=== PATIENT | male | born 1935 | race Caucasian/White ===

== ENCOUNTER 2018-02-21 12:44 | Inpatient (IN) | payer MEDICARE, OTHER, SELFPAY ==
[2018-02-21 12:45] VITALS: BP 140/99; PULSE 97; RESP 14; TEMP 37.1; O2SAT 99; BMI 23.1
[2018-02-21 13:23] LABS: Absolute Lymphocyte Count 1.03 X10^3/ul (0.83-4.51); Absolute Neutrophil Count 5.3 X10^3/uL (2.0-7.7); Basophil# 0.02 X10^3/uL; Basophil% 0.3 % (0-1); Eosinophil# 0.05 X10^3/uL; Eosinophils% 0.7 % (0-5); Hemoglobin 10.1 g/dl (13.0-16.5); Lymphocyte # 1.03 X10^3/ul (4.0); Lymphocyte % 14.5 % (19-41); Mean Corp Hgb Conc 32.6 g/gl (32-36); Mean Corpuscular Hgb 29.6 pg (27.0-32.0); Mean Corpuscular Volume 90.9 fL (80-94); Monocyte# 0.72 X10^3/uL; Monocyte% 10.2 % (0-10); Neutrophil # 5.25 X10^3/uL (2.7-7.7); POSITIVE COUNT NO; POSITIVE DIFFERENTIAL NO; POSITIVE MORPHOLOGY NO; Platelet Count 231 K/mm3 (150-450); RBC Distribution Width CV 13.5 % (11.6-14.6); RBC Distribution Width SD 43.8 fl (35.1-43.9); Red Blood Count 3.41 M/mm3 (4.6-6.2); White Blood Count 7.1 K/mm3 (4.4-11.0)
[2018-02-21] MEDS: 0.9% Normal Saline 1,000 ML 150 ML IV (13:27)
[2018-02-21 13:33] LABS: Anion Gap 12 (5-15); BUN 66 mg/dL (7-18); BUN/Creat Ratio 10.4 RATIO (10-20); Calcium,Total 8.9 mg/dL (8.5-10.1); Chloride 106 mmol/L (98-107); Creatinine, Serum 6.33 mg/dL (0.70-1.30); EST Glomerular Filtration Rate 9 mL/min (>60); Est Glom Filt Rate - Afr Amer 11 mL/min (>60); Estimated Creatinine Clearance 9.45 ml/min; Glucose 104 mg/dL (74-106); Potassium 4.2 mmol/L (3.5-5.1); Sodium Level 137 mmol/L (136-145)
[2018-02-21 13:36] LABS: Mucous, Urine 0 SEEN /hpf (<or=2+)
[2018-02-21 13:43] LABS: Color, Urine Yellow (Yellow); Glucose, Dipstick Normal (Normal); Ketone-Dipstick Negative (Negative); Leukocyte Esterase-Dipstick 500 /ul (Negative); Nitrite-Dipstick Negative (Negative); Occult Blood-Urine 25 /ul (Negative); Protein-Dipstick 30 mg/dl (Negative); Specific Gravity, Urine 1.005 (1.002-1.030); Urine Bilirubin Dipstick Negative (Negative); Urine Clarity Sl. Cloudy (Clear); Urine Urobilinogen Normal (Normal)
[2018-02-21 13:49] LABS: Bacteria 2+ /hpf (None Seen); Red Blood Cells-Urine 0-5 SEEN /hpf (0-5); Squamous Epithelial Cells - UA 0-5 SEEN /hpf (0-5); White Blood Cells 25-50 SEEN /hpf (0-5)
--- NOTE | 2018-02-21 13:53 | ED.VISSUMM ---
- ER Visit Summary Date of Service: 02/21/18 Chief Complaint: [Abnormal labs History of Present Illness: The patient is a 82 M [presents to the emergency department after being evaluated by meteorology teacher Dr. Santos. Patient initially saw Dr. Mati Cody in the office about a week ago and was noted to have renal failure and anemia therefore was referred to nephrology. Patient states that he has been urinating frequently but only small amounts and has not been completely able to empty his bladder. He denies any fevers. He denies any significant abdominal pain. He denies blood in his stool. He denies black tarry stool.] Physical Examination: [HEENT-PERRLA, EOMI. Cranial nerves II through XII grossly intact. TMs clear. Mucous membranes moist. No adenopathy. Cardiovascular-regular rate and rhythm without murmur or ectopy Lungs-clear to auscultation, chest wall stable without crepitus or subcu emphysema Abdomen-normoactive bowel sounds, soft, nontender, no rebound or rigidity, no peritoneal signs. Extremities-intact ?4, normal range of motion, normal pulses, atraumatic] Test Results: [CBC with differential obtained showed a white count 7.1, hemoglobin 10, hematocrit 31, platelets 231. Chemistries unremarkable. BUN was 66 and creatinine was 6.33. Urinalysis was significant for 500 leukocyte esterase, 25-50 WBCs and +2 bacteria. Urine culture was sent. Bladder scan on presentation showed 900 cc of urine.] Emergency Department Course and Treatment: [Patient had a Santiago catheter placed and patient was started on Rocephin 1 g IV. Patient was started on normal saline.] Treatment Plan: [Admit] Disposition: [Admit] Impression: [Acute renal failure-obstructive uropathy Urinary tract infection] This note was generated with [employer] dictation software. It may contain incorrect words, spelling, and punctuation that were not noted in review of the chart prior to signing ED Disposition - Plan for ED Patient: Chief Complaint: Abn Labs Referrals: Mati Cody MD [Primary Care Provider] -
--- NOTE | 2018-02-21 13:56 | ED.DCSUM_ITS ---
- ER Visit Summary Date of Service: 02/21/18 Chief Complaint: [Abnormal labs History of Present Illness: The patient is a 82 M [presents to the emergency department after being evaluated by senior administrative services officer Dr. Santos. Patient initially saw Dr. Mati Cody in the office about a week ago and was noted to have renal failure and anemia therefore was referred to nephrology. Patient states that he has been urinating frequently but only small amounts and has not been completely able to empty his bladder. He denies any fevers. He denies any significant abdominal pain. He denies blood in his stool. He denies black tarry stool.] Physical Examination: [HEENT-PERRLA, EOMI. Cranial nerves II through XII grossly intact. TMs clear. Mucous membranes moist. No adenopathy. Cardiovascular-regular rate and rhythm without murmur or ectopy Lungs-clear to auscultation, chest wall stable without crepitus or subcu emphysema Abdomen-normoactive bowel sounds, soft, nontender, no rebound or rigidity, no peritoneal signs. Extremities-intact ?4, normal range of motion, normal pulses, atraumatic] Test Results: [CBC with differential obtained showed a white count 7.1, hemoglobin 10, hematocrit 31, platelets 231. Chemistries unremarkable. BUN was 66 and creatinine was 6.33. Urinalysis was significant for 500 leukocyte esterase, 25-50 WBCs and +2 bacteria. Urine culture was sent. Bladder scan on presentation showed 900 cc of urine.] Emergency Department Course and Treatment: [Patient had a Santiago catheter placed and patient was started on Rocephin 1 g IV. Patient was started on normal saline.] Treatment Plan: [Admit] Disposition: [Admit] Impression: [Acute renal failure-obstructive uropathy Urinary tract infection] This note was generated with [employer] dictation software. It may contain incorrect words, spelling, and punctuation that were not noted in review of the chart prior to signing ED Disposition - Plan for ED Patient: Chief Complaint: Abn Labs Referrals: Mati Cody MD [Primary Care Provider] -
--- NOTE | 2018-02-21 14:07 | PCM.HP.STD ---
Problem List (1) HEIDI (acute kidney injury) Status: Acute (2) UTI (urinary tract infection) Status: Acute History of Present Illness Date of Admission: 02/21/18 Chief Complaint: HEIDI The patient is a 82 year old M who got a flu shot was not feeling well. And was noted that he had not seen a physician in about 6 years and this showed acute kidney injury. Patient was sent to administrative services assistant who saw the patient's creatinine was over 6 and sent the patient to the ER. Patient has been noticing that he has been dribbling urine for several months and is constantly incontinent. Patient was bladder scanned for 900 cc of urine. Santiago catheter was placed in the emergency room. 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 Review of Systems Constitutional: Denies: Chills, Fever, Weight Change Eyes: Reports: - - glasses. Denies: Blurred vision, Double vision HEENT: Denies: Head Aches, Sinus Congestion, Sinus Drainage Cardiovascular: Denies: Chest Pain, Palpitations Respiratory: Denies: Cough, Shortness of breath at rest, Sputum production Gastrointestinal: Denies: Abdominal Pain, Nausea, Vomiting Genitourinary: Reports: Frequency, Hesitancy, Incontinence, Retention. Denies: Dysuria, Nocturia Musculoskeletal: Denies: Joint Pain, Joint Tenderness Skin: Denies: Rash, Wounds Neurological: Denies: Numbness, Tingling, Focal weakness Psychiatric: Denies: Anxiety, Depression Endocrine: Denies: Change in Body Habitus, Heat/ Cold Intolerance Hematologic/ Lymphatic: Reports: Hx of blood clot. Denies: Easy Bruising, Easy Bleeding Comment: All review of systems are negative except as mentioned in the history of present illness and the other review of systems. VTE Information - Inpt Only VTE Present on Admission: No VTE Mechan Device Prophylaxis: None VTE Pharm Prophylaxis ordered?: Yes Patient Problems: Active and Suspected Problems (Last Updated 02/21/18 @ 14:09 by Gustavo Sauer DO) HEIDI (acute kidney injury) (Acute) UTI (urinary tract infection) (Acute) - Physical Exam General: Alert, Cooperative, No apparent distress, Well developed, Well nourished, - - Appears younger than stated age HEENT: Atraumatic, Normocephalic Oral: Moist Mucosa, No Gingival or Mucosal Lesions/ Ulcerations Neck: No Nodes, Thyroid Normal Size and Texture Lungs: Clear to auscultation, Normal air movement, No rhonchi, No wheeze Cardiovascular: Regular rate, Regular Rhythm, Normal S1, Normal S2, No murmurs Abdomen: Bowel Sounds Present, Soft, Non Tender, Non-Distended, No Hepato-splenomegaly Extremities: No edema, No Calf Tenderness Skin: No breakdown Musculoskeletal: No Tenderness to Palpation of Joints or Extremities, No Muscle Wasting Neurological: Deep Tendon Reflexes 2+/4 and Symmetrical, Coordination normal, - - No clonus Psych/Mental Status: Normal Affect, Appropriate Vital Signs Temp Pulse Resp BP Pulse Ox 37.1 C 97 14 140/99 H 99 02/21/18 12:45 02/21/18 12:45 02/21/18 12:45 02/21/18 12:45 02/21/18 12:45 Oxygen Delivery Method Room Air Weight: 73 kg Body Mass Index (BMI) 23.1 Laboratory Tests Past 24 Hrs 02/21/18 02/21/18 02/21/18 13:05 13:05 13:25 WBC 7.1 RBC 3.41 L Hgb 10.1 L Hct 31.0 L MCV 90.9 MCH 29.6 MCHC 32.6 RDW 13.5 RDW Differential 43.8 Plt Count 231 MPV 9.0 Immature Gran % (Auto) 0.300 Neut % (Auto) 74.0 H Lymph % (Auto) 14.5 L White % (Auto) 10.2 H Eos % (Auto) 0.7 Baso % (Auto) 0.3 Absolute Neuts (auto) 5.3 Absolute Lymphs (auto) 1.03 Total Counted Not Reportable Sodium 137 Potassium 4.2 Chloride 106 Carbon Dioxide 19.0 L Anion Gap 12 BUN 66 H Creatinine 6.33 H Estim Creat Clear Calc 9.45 Est GFR (MDRD) Af Amer 11 L Est GFR (MDRD) Non-Af 9 L BUN/Creatinine Ratio 10.4 Glucose 104 Calcium 8.9 Urine Color Yellow Urine Clarity Sl. Cloudy Urine pH 6.0 Ur Specific [place] 1.005 Urine Protein 30 H Urine Glucose (UA) Normal Urine Ketones Negative Urine Occult Blood 25 H Urine Nitrite Negative Urine Bilirubin Negative Urine Urobilinogen Normal Ur Leukocyte Esterase 500 H Urine RBC 0-5 SEEN Urine WBC 25-50 SEEN Ur Squamous Epith Cells 0-5 SEEN Urine Bacteria 2+ Urine Mucus 0 SEEN Assessment/Plan All Active Problems (Last Updated 02/21/18 @ 14:09 by Gustavo Sauer DO) HEIDI (acute kidney injury) (Acute) UTI (urinary tract infection) (Acute) 1. 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 This will need to potentially be removed prior to discharge to see if he can urinate without it. However, if the catheter does need to be replaced patient will need to follow-up with urology as outpatient IV fluids Start Flomax Reevaluate in the a.m. Check renal ultrasound Consult nephrology I do not anticipate patient requiring any renal replacement therapy at this time 2. UTI Based on urinalysis findings Continue with ceftriaxone that was started in the emergency room Follow-up urine culture 3. Anemia Normocytic Monitor for now 4. DVT prophylaxis with subcu heparin 5. Disposition: Patient will be brought in under as observation status as I do anticipate the patient doing well overnight and having no setbacks. Much this workup likely can be continued as outpatient. Case discussed with the patient's at bedside. Code Visit OBSV E&M: 35674 Initial observation care L3
--- NOTE | 2018-02-21 14:11 | HP.PCM_ITS ---
Problem List (1) HEIDI (acute kidney injury) Status: Acute (2) UTI (urinary tract infection) Status: Acute History of Present Illness Date of Admission: 02/21/18 Chief Complaint: HEIDI The patient is a 82 year old M who got a flu shot was not feeling well. And was noted that he had not seen a physician in about 6 years and this showed acute kidney injury. Patient was sent to complex care nurse practitioner who saw the patient's cr eatinine was over 6 and sent the patient to the ER. Patient has been noticing that he has been dribbling urine for several months and is constantly incontinent. Patient was bladder scanned for 900 cc of urine. Santiago catheter was placed in the emergency room. 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 Review of Systems Constitutional: Denies: Chills, Fever, Weight Change Eyes: Reports: - - glasses. Denies: Blurred vision, Double vision HEENT: Denies: Head Aches, Sinus Congestion, Sinus Drainage Cardiovascular: Denies: Chest Pain, Palpitations Respiratory: Denies: Cough, Shortness of breath at rest, Sputum production Gastrointestinal: Denies: Abdominal Pain, Nausea, Vomiting Genitourinary: Reports: Frequency, Hesitancy, Incontinence, Retention. Denies: Dysuria, Nocturia Musculoskeletal: Denies: Joint Pain, Joint Tenderness Skin: Denies: Rash, Wounds Neurological: Denies: Numbness, Tingling, Focal weakness Psychiatric: Denies: Anxiety, Depression Endocrine: Denies: Change in Body Habitus, Heat/ Cold Intolerance Hematologic/ Lymphatic: Reports: Hx of blood clot. Denies: Easy Bruising, Easy Bleeding Comment: All review of systems are negative except as mentioned in the history of present illness and the other review of systems. VTE Information - Inpt Only VTE Present on Admission: No VTE Mechan Device Prophylaxis: None VTE Pharm Prophylaxis ordered?: Yes Patient Problems: Active and Suspected Problems (Last Updated 02/21/18 @ 14:09 by Gustavo Sauer DO) HEIDI (acute kidney injury) (Acute) UTI (urinary tract infection) (Acute) - Physical Exam General: Alert, Cooperative, No apparent distress, Well developed, Well nourished, - - Appears younger than stated age HEENT: Atraumatic, Normocephalic Oral: Moist Mucosa, No Gingival or Mucosal Lesions/ Ulcerations Neck: No Nodes, Thyroid Normal Size and Texture Lungs: Clear to auscultation, Normal air movement, No rhonchi, No wheeze Cardiovascular: Regular rate, Regular Rhythm, Normal S1, Normal S2, No murmurs Abdomen: Bowel Sounds Present, Soft, Non Tender, Non-Distended, No Hepato- splenomegaly Extremities: No edema, No Calf Tenderness Skin: No breakdown Musculoskeletal: No Tenderness to Palpation of Joints or Extremities, No Muscle Wasting Neurological: Deep Tendon Reflexes 2+/4 and Symmetrical, Coordination normal, - - No clonus Psych/Mental Status: Normal Affect, Appropriate Vital Signs Temp Pulse Resp BP Pulse Ox 37.1 C 97 14 140/99 H 99 02/21/18 12:45 02/21/18 12:45 02/21/18 12:45 02/21/18 12:45 02/21/18 12:45 Oxygen Delivery Method Room Air Weight: 73 kg Body Mass Index (BMI) 23.1 Laboratory Tests Past 24 Hrs 02/21/18 02/21/18 02/21/18 13:05 13:05 13:25 WBC 7.1 RBC 3.41 L Hgb 10.1 L Hct 31.0 L MCV 90.9 MCH 29.6 MCHC 32.6 RDW 13.5 RDW Differential 43.8 Plt Count 231 MPV 9.0 Immature Gran % (Auto) 0.300 Neut % (Auto) 74.0 H Lymph % (Auto) 14.5 L [place] % (Auto) 10.2 H Eos % (Auto) 0.7 Baso % (Auto) 0.3 Absolute Neuts (auto) 5.3 Absolute Lymphs (auto) 1.03 Total Counted Not Reportable Sodium 137 Potassium 4.2 Chloride 106 Carbon Dioxide 19.0 L Anion Gap 12 BUN 66 H Creatinine 6.33 H Estim Creat Clear Calc 9.45 Est GFR (MDRD) Af Amer 11 L Est GFR (MDRD) Non-Af 9 L BUN/Creatinine Ratio 10.4 Glucose 104 Calcium 8.9 Urine Color Yellow Urine Clarity Sl. Cloudy Urine pH 6.0 Ur Specific [place] 1.005 Urine Protein 30 H Urine Glucose (UA) Normal Urine Ketones Negative Urine Occult Blood 25 H Urine Nitrite Negative Urine Bilirubin Negative Urine Urobilinogen Normal Ur Leukocyte Esterase 500 H Urine RBC 0-5 SEEN Urine WBC 25-50 SEEN Ur Squamous Epith Cells 0-5 SEEN Urine Bacteria 2+ Urine Mucus 0 SEEN Assessment/Plan All Active Problems (Last Updated 02/21/18 @ 14:09 by Gustavo Sauer DO) HEIDI (acute kidney injury) (Acute) UTI (urinary tract infection) (Acute) 1. 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 This will need to potentially be removed prior to discharge to see if he can urinate without it. However, if the catheter does need to be replaced patient will need to follow-up with urology as outpatient * IV fluids * Start Flomax * Reevaluate in the a.m. * Check renal ultrasound * Consult nephrology * I do not anticipate patient requiring any renal replacement therapy at this time 2. UTI * Based on urinalysis findings * Continue with ceftriaxone that was started in the emergency room * Follow-up urine culture 3. Anemia * Normocytic * Monitor for now 4. DVT prophylaxis with subcu heparin 5. Disposition: Patient will be brought in under as observation status as I do anticipate the patient doing well overnight and having no setbacks. Much this workup likely can be continued as outpatient. Case discussed with the patient's at bedside. Code Visit OBSV E&M: 13469 Initial observation care L3
--- NOTE | 2018-02-21 14:14 | CM.ED ---
Social Work Note Face to face with the pt and his to complete initial assessment. Introduced self and role at [facility]. The pt reports to live with his in a one-story home with 2 CONI. Denies access issues and uses a cane at baseline. DME consists of a cane, walker, shower chair, toilet riser, and grab bars. Pt and state they do not use all of this, but have it in the home as they cared for their parents in the past. Pt claims to be independent with ADL's and still drives. Confirms that his PCP is Dr. Cody and denies any specialists. Preferred pharmacy is [facility] for short-term medications and mail order for long-term. Do not have advanced directives and declines additional information. states she got it in May and they do not want it at this time. Made aware that RN KRISTI and SW on assigned unit are available to assist with discharge planning if needs arise. Plan: Home with support of spouse. Pamela Vargas, CATALOG LIBRARIAN, LIVERY CAR DRIVER
--- NOTE | 2018-02-21 14:30 | US_ITS ---
STUDY: RENAL ULTRASOUND - COMPLETE REASON FOR EXAM: Male, 82 years old. Acute kidney injury. TECHNIQUE: Ultrasound evaluation of the kidneys was performed with real-time and static torres-scale imaging. COMPARISON: None. FINDINGS: RIGHT KIDNEY: Normal location of the right kidney, which is normal in size. The right kidney measures 2.4 x 5.8 x 5.5 cm. There is a normal cortex of the right kidney. The renal cortex measures 1.2 cm. There is no right renal mass or cyst. There are no right renal calculi. There is moderately severe hydronephrosis of the right kidney. DISTAL RIGHT URETER: There is moderate - 1.0 cm diameter - hydroureter of the distal right ureter. There is no demonstrated right ureterovesical junction calculus. There is no demonstrated right ureteral jet. LEFT KIDNEY: Normal location of the left kidney, which is normal in size. The left kidney measures 11.1 x 5.6 x 5.1 cm. There is a normal cortex of the left kidney. The renal cortex measures 1.1 cm. There is no left renal mass or cyst. There are no left renal calculi. There is moderately severe hydronephrosis of the left kidney. DISTAL LEFT URETER: There is moderate - 9 mm diameter - hydroureter of the distal left ureter. There is no demonstrated left ureterovesical junction calculus. There is no demonstrated left ureteral jet. BLADDER: Santiago catheter balloon is noted in the urinary bladder. The urinary bladder has a volume of 68.64 ml at the time of scanning. There is a diffusely thickened wall hypervascularity, and trabeculation of the distended bladder. The urinary bladder wall thickness is 1.1 cm. There is no demonstrated mass within the urinary bladder. There are no demonstrated bladder calculi. US/Kidney and Bladder IMPRESSION: 1. Bilateral hydronephrosis down to the ureterovesical junctions. Bilateral ureteral jets were not visualized. 2. The bladder wall is diffusely thickened and trabeculated. A Santiago catheter is incidentally noted. Electronically Signed: Lane Mcintosh MD at 17:29 EDT , Service support ,
[2018-02-21 14:42] VITALS: BMI 24.6
[2018-02-21 14:44] VITALS: BP 159/82; PULSE 86; RESP 16; TEMP 37; O2SAT 98
[2018-02-21 14:45] VITALS: BMI 24.6
[2018-02-21] MEDS: Ceftriaxone 1 GM/50 ML BAG IV (16:45)
[2018-02-21] MEDS: Tamsulosin HCl 0.4 MG Capsule PO (16:49)
--- NOTE | 2018-02-21 17:07 | PCM.CONS.R ---
Problem List (1) HEIDI (acute kidney injury) Status: Acute Consultation - Renal 02/21/18 PCP/ Referring MD: Requesting physician: [] Primary care physician: Mati Cody Reason for Consultation:: HEIDI - History of Present Illness History of Present Illness: The patient is a 82 year old M came to our clinic with creatinine of 6.4. has not seen a doctor for 6 years now. Gave symptoms of obstructive nephropathy hence referred to ER for garcía placement. garcía placed with immediate return of 1 L. still draining blood tinged fluid. denies any complaints - Allergies Allergies: Allergies topic sulfate eye wash Allergy (Uncoded 02/21/18 14:54) Swelling - Current Medications Current Medications: Current Medications Acetaminophen (Tylenol) 650 mg PO Q6H PRN PRN PRN Reason: Mild Pain (1-3)/Temp > 100.7 F Heparin Sodium (Porcine) (Heparin Na) 5,000 unit SC Q12 [facility] Sodium Chloride () 1,000 mls @ 150 mls/hr IV .Q6H40M [facility] Stop: 02/21/18 21:09 Last Admin: 02/21/18 15:33 Dose: Not Given Ceftriaxone Sodium (Rocephin) 1 gm in 50 mls @ 100 mls/hr IV Q24 [facility] Magnesium Hydroxide (Milk Of Magnesia) 30 ml PO DAILY PRN PRN PRN Reason: Constipation Nutritional Formula (Lactose Free) (Ensure Enlive) 120 ml PO 4X/DAY [facility] Ondansetron HCl (Zofran) 4 mg IV Q8H PRN PRN PRN Reason: NAUSEA Sodium Chloride () 5 - 30 ml IV UD PRN PRN Reason: SALINE FLUSH Tamsulosin HCl (Flomax) 0.4 mg PO DAILY@1730 ALEX Last Admin: 02/21/18 16:49 Dose: 0.4 mg - Social History Smoking Status: Never smoker Alcohol: None Drugs: None - Family History Sibling History Items: Heart Disease - 1 brother with a pacemaker and another with another cardiac issue NOS. Review of Systems Constitutional: Denies: Chills, Fever, Weight Change HEENT: Denies: Head Aches, Sinus Congestion, Sinus Drainage Cardiovascular: Denies: Chest Pain, Palpitations Respiratory: Denies: Cough, Shortness of breath at rest, Sputum production Gastrointestinal: Denies: Abdominal Pain, Nausea, Vomiting Genitourinary: Denies: Dysuria Musculoskeletal: Denies: Joint Pain, Joint Tenderness Skin: Denies: Rash, Wounds Neurological: Denies: Numbness, Tingling, Focal weakness Psychiatric: Denies: Anxiety, Depression, Homicidal Ideations, Suicidal Ideations Hematologic/ Lymphatic: Denies: Easy Bruising, Easy Bleeding Patient Problems: Active and Suspected Problems (Last Updated 02/21/18 @ 14:09 by Gustavo Sauer DO) HEIDI (acute kidney injury) (Acute) UTI (urinary tract infection) (Acute) - Physical Exam General: Alert, Oriented x3, Cooperative HEENT: Atraumatic, PERRLA, EOMI, Normocephalic Neck: Supple, No JVD, Negative Carotid Bruits Lungs: Clear to auscultation, Normal air movement Cardiovascular: Regular rate, No murmurs Abdomen: Bowel Sounds Present, Soft, Non Tender Extremities: No edema, Capillary Refill Less than 3 Seconds Skin: No rashes, No breakdown Musculoskeletal: No Tenderness to Palpation of Joints or Extremities Neurological: Cranial nerves II-XII grossly intact Psych/Mental Status: Normal Affect, Appropriate Vital Signs Temp Pulse Resp BP Pulse Ox 98.6 F 86 16 159/82 H 98 02/21/18 14:44 02/21/18 14:44 02/21/18 14:44 02/21/18 14:44 02/21/18 14:44 Oxygen Delivery Method Room Air Weight: 69.2 kg Body Mass Index (BMI) 24.6 Laboratory Tests Past 24 Hrs 02/21/18 02/21/18 02/21/18 13:05 13:05 13:25 WBC 7.1 RBC 3.41 L Hgb 10.1 L Hct 31.0 L MCV 90.9 MCH 29.6 MCHC 32.6 RDW 13.5 RDW Differential 43.8 Plt Count 231 MPV 9.0 Immature Gran % (Auto) 0.300 Neut % (Auto) 74.0 H Lymph % (Auto) 14.5 L [place] % (Auto) 10.2 H Eos % (Auto) 0.7 Baso % (Auto) 0.3 Absolute Neuts (auto) 5.3 Absolute Lymphs (auto) 1.03 Total Counted Not Reportable Eos Smear Total Cells Sodium 137 Potassium 4.2 Chloride 106 Carbon Dioxide 19.0 L Anion Gap 12 BUN 66 H Creatinine 6.33 H Estim Creat Clear Calc 9.45 Est GFR (MDRD) Af Amer 11 L Est GFR (MDRD) Non-Af 9 L BUN/Creatinine Ratio 10.4 Glucose 104 Calcium 8.9 Urine Color Yellow Urine Clarity Sl. Cloudy Urine pH 6.0 Ur Specific [place] 1.005 Urine Protein 30 H Urine Glucose (UA) Normal Urine Ketones Negative Urine Occult Blood 25 H Urine Nitrite Negative Urine Bilirubin Negative Urine Urobilinogen Normal Ur Leukocyte Esterase 500 H Urine RBC 0-5 SEEN Urine WBC 25-50 SEEN Ur Squamous Epith Cells 0-5 SEEN Urine Bacteria 2+ Urine Mucus 0 SEEN Ur Random Sodium Urine Creatinine 02/21/18 02/21/18 02/21/18 13:25 13:25 13:25 WBC RBC Hgb Hct MCV MCH MCHC RDW RDW Differential Plt Count MPV Immature Gran % (Auto) Neut % (Auto) Lymph % (Auto) [place] % (Auto) Eos % (Auto) Baso % (Auto) Absolute Neuts (auto) Absolute Lymphs (auto) Total Counted Eos Smear Total Cells Pending Sodium Potassium Chloride Carbon Dioxide Anion Gap BUN Creatinine Estim Creat Clear Calc Est GFR (MDRD) Af Amer Est GFR (MDRD) Non-Af BUN/Creatinine Ratio Glucose Calcium Urine Color Urine Clarity Urine pH Ur Specific [place] Urine Protein Urine Glucose (UA) Urine Ketones Urine Occult Blood Urine Nitrite Urine Bilirubin Urine Urobilinogen Ur Leukocyte Esterase Urine RBC Urine WBC Ur Squamous Epith Cells Urine Bacteria Urine Mucus Ur Random Sodium Pending Urine Creatinine Pending Assessment/Plan All Active Problems (Last Updated 02/21/18 @ 14:09 by Gustavo Sauer DO) HEIDI (acute kidney injury) (Acute) UTI (urinary tract infection) (Acute) HEIDI. baseline creatinine as of 6 years ago was 1.1. now 6.4 Likely obstructive. garcía placed with immediate return of 1 L. still draining a large amount of blood tinged urine. start half normal saline. renal USG images reviewed. significant hydroureter. Anemia. Hb as outpatient was low. now has hematuria. CBC in AM Obstructive nephropathy. s/p garcía placement. Will need urology evaluation of note he lost about 70 lbs within last couple years, also had poor appetite. prostrate malignancy needs to be ruled out. can be done by urology as outpatient d/w family at bedside
--- NOTE | 2018-02-21 17:11 | CON.PCM_ITS ---
Problem List (1) HEIDI (acute kidney injury) Status: Acute Consultation - Renal 02/21/18 PCP/ Referring MD: Requesting physician: [] Primary care physician: Mati Cody Reason for Consultation:: HEIDI - History of Present Illness History of Present Illness: The patient is a 82 year old M came to our clinic with creatinine of 6.4. has not seen a doctor for 6 years now. Gave symptoms of obstructive nephropathy hence referred to ER for garcía placement. garcía placed with immediate return of 1 L. still draining blood tinged fluid. denies any complaints - Allergies Allergies: Allergies topic sulfate eye wash Allergy (Uncoded 02/21/18 14:54) Swelling - Current Medications Current Medications: Current Medications Acetaminophen (Tylenol) 650 mg PO Q6H PRN PRN PRN Reason: Mild Pain (1-3)/Temp > 100.7 F Heparin Sodium (Porcine) (Heparin Na) 5,000 unit SC Q12 [facility] Sodium Chloride () 1,000 mls @ 150 mls/hr IV .Q6H40M [facility] Stop: 02/21/18 21:09 Last Admin: 02/21/18 15:33 Dose: Not Given Ceftriaxone Sodium (Rocephin) 1 gm in 50 mls @ 100 mls/hr IV Q24 [facility] Magnesium Hydroxide (Milk Of Magnesia) 30 ml PO DAILY PRN PRN PRN Reason: Constipation Nutritional Formula (Lactose Free) (Ensure Enlive) 120 ml PO 4X/DAY [facility] Ondansetron HCl (Zofran) 4 mg IV Q8H PRN PRN PRN Reason: NAUSEA Sodium Chloride () 5 - 30 ml IV UD PRN PRN Reason: SALINE FLUSH Tamsulosin HCl (Flomax) 0.4 mg PO DAILY@1730 ALEX Last Admin: 02/21/18 16:49 Dose: 0.4 mg - Social History Smoking Status: Never smoker Alcohol: None Drugs: None - Family History Sibling History Items: Heart Disease - 1 brother with a pacemaker and another with another cardiac issue NOS. Review of Systems Constitutional: Denies: Chills, Fever, Weight Change HEENT: Denies: Head Aches, Sinus Congestion, Sinus Drainage Cardiovascular: Denies: Chest Pain, Palpitations Respiratory: Denies: Cough, Shortness of breath at rest, Sputum production Gastrointestinal: Denies: Abdominal Pain, Nausea, Vomiting Genitourinary: Denies: Dysuria Musculoskeletal: Denies: Joint Pain, Joint Tenderness Skin: Denies: Rash, Wounds Neurological: Denies: Numbness, Tingling, Focal weakness Psychiatric: Denies: Anxiety, Depression, Homicidal Ideations, Suicidal Ideations Hematologic/ Lymphatic: Denies: Easy Bruising, Easy Bleeding Patient Problems: Active and Suspected Problems (Last Updated 02/21/18 @ 14:09 by Gustavo Sauer DO) HEIDI (acute kidney injury) (Acute) UTI (urinary tract infection) (Acute) - Physical Exam General: Alert, Oriented x3, Cooperative HEENT: Atraumatic, PERRLA, EOMI, Normocephalic Neck: Supple, No JVD, Negative Carotid Bruits Lungs: Clear to auscultation, Normal air movement Cardiovascular: Regular rate, No murmurs Abdomen: Bowel Sounds Present, Soft, Non Tender Extremities: No edema, Capillary Refill Less than 3 Seconds Skin: No rashes, No breakdown Musculoskeletal: No Tenderness to Palpation of Joints or Extremities Neurological: Cranial nerves II-XII grossly intact Psych/Mental Status: Normal Affect, Appropriate Vital Signs Temp Pulse Resp BP Pulse Ox 98.6 F 86 16 159/82 H 98 02/21/18 14:44 02/21/18 14:44 02/21/18 14:44 02/21/18 14:44 02/21/18 14:44 Oxygen Delivery Method Room Air Weight: 69.2 kg Body Mass Index (BMI) 24.6 Laboratory Tests Past 24 Hrs 02/21/18 02/21/18 02/21/18 13:05 13:05 13:25 WBC 7.1 RBC 3.41 L Hgb 10.1 L Hct 31.0 L MCV 90.9 MCH 29.6 MCHC 32.6 RDW 13.5 RDW Differential 43.8 Plt Count 231 MPV 9.0 Immature Gran % (Auto) 0.300 Neut % (Auto) 74.0 H Lymph % (Auto) 14.5 L [place] % (Auto) 10.2 H Eos % (Auto) 0.7 Baso % (Auto) 0.3 Absolute Neuts (auto) 5.3 Absolute Lymphs (auto) 1.03 Total Counted Not Reportable Eos Smear Total Cells Sodium 137 Potassium 4.2 Chloride 106 Carbon Dioxide 19.0 L Anion Gap 12 BUN 66 H Creatinine 6.33 H Estim Creat Clear Calc 9.45 Est GFR (MDRD) Af Amer 11 L Est GFR (MDRD) Non-Af 9 L BUN/Creatinine Ratio 10.4 Glucose 104 Calcium 8.9 Urine Color Yellow Urine Clarity Sl. Cloudy Urine pH 6.0 Ur Specific [place] 1.005 Urine Protein 30 H Urine Glucose (UA) Normal Urine Ketones Negative Urine Occult Blood 25 H Urine Nitrite Negative Urine Bilirubin Negative Urine Urobilinogen Normal Ur Leukocyte Esterase 500 H Urine RBC 0-5 SEEN Urine WBC 25-50 SEEN Ur Squamous Epith Cells 0-5 SEEN Urine Bacteria 2+ Urine Mucus 0 SEEN Ur Random Sodium Urine Creatinine 02/21/18 02/21/18 02/21/18 13:25 13:25 13:25 WBC RBC Hgb Hct MCV MCH MCHC RDW RDW Differential Plt Count MPV Immature Gran % (Auto) Neut % (Auto) Lymph % (Auto) [place] % (Auto) Eos % (Auto) Baso % (Auto) Absolute Neuts (auto) Absolute Lymphs (auto) Total Counted Eos Smear Total Cells Pending Sodium Potassium Chloride Carbon Dioxide Anion Gap BUN Creatinine Estim Creat Clear Calc Est GFR (MDRD) Af Amer Est GFR (MDRD) Non-Af BUN/Creatinine Ratio Glucose Calcium Urine Color Urine Clarity Urine pH Ur Specific [place] Urine Protein Urine Glucose (UA) Urine Ketones Urine Occult Blood Urine Nitrite Urine Bilirubin Urine Urobilinogen Ur Leukocyte Esterase Urine RBC Urine WBC Ur Squamous Epith Cells Urine Bacteria Urine Mucus Ur Random Sodium Pending Urine Creatinine Pending Assessment/Plan All Active Problems (Last Updated 02/21/18 @ 14:09 by Gustavo Sauer DO) HEIDI (acute kidney injury) (Acute) UTI (urinary tract infection) (Acute) HEIDI. baseline creatinine as of 6 years ago was 1.1. now 6.4 Likely obstructive. garcía placed with immediate return of 1 L. still draining a large amount of blood tinged urine. start half normal saline. renal USG images reviewed. significant hydroureter. Anemia. Hb as outpatient was low. now has hematuria. CBC in AM Obstructive nephropathy. s/p garcía placement. Will need urology evaluation of note he lost about 70 lbs within last couple years, also had poor appetite. prostrate malignancy needs to be ruled out. can be done by urology as outpatient d/w family at bedside
[2018-02-21 17:33] LABS: Urine Sodium 62 mmol/L (Not Establ.)
[2018-02-21 20:53] VITALS: BP 102/56; PULSE 88; RESP 16; TEMP 37.1; O2SAT 96
[2018-02-22 03:25] VITALS: BP 136/118; PULSE 71; RESP 16; TEMP 37; O2SAT 97
[2018-02-22 06:32] LABS: Absolute Lymphocyte Count 0.93 X10^3/ul (0.83-4.51); Absolute Neutrophil Count 7.6 X10^3/uL (2.0-7.7); Basophil# 0.01 X10^3/uL; Basophil% 0.1 % (0-1); Eosinophil# 0.04 X10^3/uL; Eosinophils% 0.4 % (0-5); Hematocrit 30.4 % (40-54); Hemoglobin 9.7 g/dl (13.0-16.5); Lymphocyte # 0.93 X10^3/ul (4.0); Lymphocyte % 9.5 % (19-41); Mean Corp Hgb Conc 31.9 g/gl (32-36); Mean Corpuscular Hgb 28.8 pg (27.0-32.0); Mean Corpuscular Volume 90.2 fL (80-94); Mean Platelet Vol. 9.8 fl (6.2-12.0); Monocyte# 1.13 X10^3/uL; Monocyte% 11.6 % (0-10); Neutrophil # 7.63 X10^3/uL (2.7-7.7); Neutrophil % 78.2 % (47-70); Platelet Count 197 K/mm3 (150-450); RBC Distribution Width CV 13.5 % (11.6-14.6); RBC Distribution Width SD 43.4 fl (35.1-43.9); Red Blood Count 3.37 M/mm3 (4.6-6.2); White Blood Count 9.8 K/mm3 (4.4-11.0)
[2018-02-22 06:34] LABS: POSITIVE COUNT NO; POSITIVE DIFFERENTIAL NO; POSITIVE MORPHOLOGY NO
[2018-02-22 06:45] LABS: Anion Gap 12 (5-15); BUN 67 mg/dL (7-18); BUN/Creat Ratio 11.7 RATIO (10-20); Calcium,Total 8.7 mg/dL (8.5-10.1); Chloride 110 mmol/L (98-107); Creatinine, Serum 5.73 mg/dL (0.70-1.30); EST Glomerular Filtration Rate 10 mL/min (>60); Est Glom Filt Rate - Afr Amer 12 mL/min (>60); Estimated Creatinine Clearance 9.12 ml/min; Glucose 113 mg/dL (74-106); Potassium 4.7 mmol/L (3.5-5.1); Sodium Level 142 mmol/L (136-145)
[2018-02-22 07:36] VITALS: BP 135/76; PULSE 72; RESP 18; TEMP 36.8; O2SAT 98
[2018-02-22] MEDS: Ceftriaxone 1 GM/50 ML BAG IV (09:10)
[2018-02-22] MEDS: 0.9% NaCl Peripheral Flush Adult/Peds IV (09:10)
--- NOTE | 2018-02-22 11:55 | CT_ITS ---
STUDY: CT ABDOMEN AND PELVIS WITHOUT CONTRAST REASON FOR EXAM: Male, 82 years old. Urine retention and hematuria. RADIATION DOSAGE (If Supplied By Facility): CTDIvol = ( 7.07 ) mGy, DLP = ( 374.58 ) mGycm TECHNIQUE: Transaxial images were obtained from the dome of the diaphragm to the symphysis pubis without oral contrast, and without intravenous contrast. Sagittal and coronal images were reconstructed. Individualized dose optimization techniques were used for this CT. COMPARISON: Bilateral renal ultrasound February 21, 2018. FINDINGS: There is mild elevation of the left diaphragm, etiology uncertain. The visualized lung bases are clear. The heart size is normal. Calcification seen in the aortic valve leaflets and, to a lesser degree, in the coronary arteries and distal descending thoracic aorta. Normal liver. The portal vein diameter is 11.5 mm. Normal gallbladder and extrahepatic biliary system. The common bile duct diameter is 8 mm. Normal spleen. Normal pancreas. Normal bilateral adrenal glands. Normal size right kidney. Normal size left kidney. There is moderate bilateral hydroureteronephrosis down to the ureterovesical junctions. No demonstrated nephrolithiasis. Normal visualized stomach. There is a 1 cm periampullary duodenal diverticulum. Normal small intestine. There are multiple colonic diverticula consistent with diverticulosis. The appendix is visualized and appears normal. There is mild atherosclerotic calcification of the distal abdominal aorta and proximal iliac arteries. There is 2.6 x 2.6 cm fusiform ectasia of the mid to distal infrarenal aorta, and 16mm diameter ectasia of the common iliac arteries. Normal inferior vena cava. Normal retroperitoneum. The urinary bladder wall is diffusely thickened and possibly 17 mm. A [place] catheter is seen within the bladder. There is also gas in the bladder lumen that has a mildly striated appearance, consistent with trabeculation of the inner bladder wall. There are prostatic calcifications. There is a 1.15 x 1.25 cm midline defect of the high anterior abdominal wall, allowing for a 4.6 x 1.3 x 4.0 cm herniation of fat. There are multilevel degenerative changes of the visualized spine, including minor anterolisthesis of L4 on L5. Irregular coronal oriented lucency through the left inferior L4 facet may reflect chronic nonunited fracture versus changes secondary to hypertrophic osteoarthritis. CT/Abdomen/Pelvis without Cont IMPRESSION: 1. Bilateral hydroureteronephrosis down to the ureterovesical junctions again noted. Diffusely thickened and trabeculated urinary bladder wall also again seen. There is no other demonstrated source of distal urinary tract obstruction. A Santiago catheter and small volume gas are seen within the bladder lumen. 2. Atherosclerotic calcifications of the coronary arteries, thoracoabdominal aorta, and proximal iliac arteries. There is 2.6 cm fusiform ectasia of the mid to distal infrarenal aorta and 16 mm diameter ectasia of the common iliac arteries. 3. 1 cm periampullary duodenal diverticulum. Colonic diverticulosis also present without acute diverticulitis. No sign of bowel obstruction. The appendix is normal. 4. Small midline defect of the high anterior abdominal wall abscess for a 4.5 cm sessile herniation of fat. 5. 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 Electronically Signed: Lane Mcintosh MD at 12:52 EDT , Service support ,
--- NOTE | 2018-02-22 11:56 | PCM.CONS.U ---
Problem List (1) Urinary retention due to benign prostatic hyperplasia Status: Acute Reason for Consult Date of Consultation: 02/22/18 Reason for Consultation: Retention of urine BPH and renal insufficiency History of Present Illness: The patient is a 82 year old male who presented to the hospital with elevated creatinine, catheter was placed and he had over a liter in his bladder, ultrasound was done he has bilateral hydronephrosis. On exam of the prostate has a very large prostate about 60 g. He reports having difficulty with bladder control incontinence and leakage of urine for the last few months. He has a history of blood clots in the past but currently not taking medications is not been seen a regular physician for 6 years now. 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 Review of Systems Constitutional: Denies: Chills, Fever, Weight Change HEENT: Denies: Head Aches, Sinus Congestion, Sinus Drainage Cardiovascular: Denies: Chest Pain, Palpitations Respiratory: Denies: Cough, Shortness of breath at rest, Sputum production Gastrointestinal: Denies: Abdominal Pain, Nausea, Vomiting Genitourinary: Reports: Retention, Urgency. Denies: Dysuria Musculoskeletal: Denies: Joint Pain, Joint Tenderness Skin: Denies: Rash, Wounds Neurological: Denies: Numbness, Tingling, Focal weakness Psychiatric: Denies: Anxiety, Depression, Homicidal Ideations, Suicidal Ideations Hematologic/ Lymphatic: Denies: Easy Bruising, Easy Bleeding Physical Exam - Physical Exam Vital Signs Temp 98.3 F 02/22/18 07:36 Pulse 72 02/22/18 07:36 Resp 18 02/22/18 07:36 BP 135/76 H 02/22/18 07:36 Pulse Ox 98 02/22/18 07:36 Intake & Output 02/20/18 02/21/1802/22/18 23:59 23:59 23:59 Intake Total 256 / 256 1300 / 1300 Output Total 1100 / 1100 2700 / 2700 Balance -844 / -844 -1400 / -1400 Weight: 69.2 kg Intake: Oral 200 / 200 600 / 600 IV fluid/meds 56 / 56 700 / 700 Output: Urine 1100 / 1100 2700 / 2700 Other: Number of Bowel Movements 1 General: Alert, Oriented x3 HEENT: Atraumatic Oral: Moist Mucosa Neck: Supple Lungs: Normal air movement Cardiovascular: Regular rate Abdomen: Bowel Sounds Present, Soft Prostate: 60gm Testicle: Right Normal, Left Normal Epididymis: Right Normal, Left Normal Scrotum: No lesions, No warts, No rash Extremities: No clubbing, No cyanosis, No edema Musculoskeletal: No Tenderness to Palpation of Joints or Extremities Laboratory Tests Past 24 Hrs 02/21/18 02/21/18 02/21/18 13:05 13:05 13:25 WBC 7.1 RBC 3.41 L Hgb 10.1 L Hct 31.0 L MCV 90.9 MCH 29.6 MCHC 32.6 RDW 13.5 RDW Differential 43.8 Plt Count 231 MPV 9.0 Immature Gran % (Auto) 0.300 Neut % (Auto) 74.0 H Lymph % (Auto) 14.5 L [place] % (Auto) 10.2 H Eos % (Auto) 0.7 Baso % (Auto) 0.3 Absolute Neuts (auto) 5.3 Absolute Lymphs (auto) 1.03 Total Counted Not Reportable Eos Smear Total Cells Sodium 137 Potassium 4.2 Chloride 106 Carbon Dioxide 19.0 L Anion Gap 12 BUN 66 H Creatinine 6.33 H Estim Creat Clear Calc 9.45 Est GFR (MDRD) Af Amer 11 L Est GFR (MDRD) Non-Af 9 L BUN/Creatinine Ratio 10.4 Glucose 104 Calcium 8.9 Urine Color Yellow Urine Clarity Sl. Cloudy Urine pH 6.0 Ur Specific [place] 1.005 Urine Protein 30 H Urine Glucose (UA) Normal Urine Ketones Negative Urine Occult Blood 25 H Urine Nitrite Negative Urine Bilirubin Negative Urine Urobilinogen Normal Ur Leukocyte Esterase 500 H Urine RBC 0-5 SEEN Urine WBC 25-50 SEEN Ur Squamous Epith Cells 0-5 SEEN Urine Bacteria 2+ Urine Mucus 0 SEEN Ur Random Sodium Urine Creatinine 02/21/18 02/21/18 02/21/18 13:25 13:25 13:25 WBC RBC Hgb Hct MCV MCH MCHC RDW RDW Differential Plt Count MPV Immature Gran % (Auto) Neut % (Auto) Lymph % (Auto) [place] % (Auto) Eos % (Auto) Baso % (Auto) Absolute Neuts (auto) Absolute Lymphs (auto) Total Counted Eos Smear Total Cells Pending Sodium Potassium Chloride Carbon Dioxide Anion Gap BUN Creatinine Estim Creat Clear Calc Est GFR (MDRD) Af Amer Est GFR (MDRD) Non-Af BUN/Creatinine Ratio Glucose Calcium Urine Color Urine Clarity Urine pH Ur Specific [place] Urine Protein Urine Glucose (UA) Urine Ketones Urine Occult Blood Urine Nitrite Urine Bilirubin Urine Urobilinogen Ur Leukocyte Esterase Urine RBC Urine WBC Ur Squamous Epith Cells Urine Bacteria Urine Mucus Ur Random Sodium 62 Urine Creatinine 59.50 02/22/18 02/22/18 05:35 05:35 WBC 9.8 RBC 3.37 L Hgb 9.7 L Hct 30.4 L MCV 90.2 MCH 28.8 MCHC 31.9 L RDW 13.5 RDW Differential 43.4 Plt Count 197 MPV 9.8 Immature Gran % (Auto) 0.200 Neut % (Auto) 78.2 H Lymph % (Auto) 9.5 L [place] % (Auto) 11.6 H Eos % (Auto) 0.4 Baso % (Auto) 0.1 Absolute Neuts (auto) 7.6 Absolute Lymphs (auto) 0.93 Total Counted Not Reportable Eos Smear Total Cells Sodium 142 Potassium 4.7 Chloride 110 H Carbon Dioxide 20.0 L Anion Gap 12 BUN 67 H Creatinine 5.73 H Estim Creat Clear Calc 9.12 Est GFR (MDRD) Af Amer 12 L Est GFR (MDRD) Non-Af 10 L BUN/Creatinine Ratio 11.7 Glucose 113 H Calcium 8.7 Urine Color Urine Clarity Urine pH Ur Specific [place] Urine Protein Urine Glucose (UA) Urine Ketones Urine Occult Blood Urine Nitrite Urine Bilirubin Urine Urobilinogen Ur Leukocyte Esterase Urine RBC Urine WBC Ur Squamous Epith Cells Urine Bacteria Urine Mucus Ur Random Sodium Urine Creatinine Assessment/Plan All Active Problems (Last Updated 02/21/18 @ 14:09 by Gustavo Sauer DO) HEIDI (acute kidney injury) (Acute) UTI (urinary tract infection) (Acute) Urinary retention due to benign prostatic hyperplasia (Acute) 82-year-old male with BPH and urinary retention elevated creatinine creatinine is coming down with decompression of the bladder I would do CT scan to further evaluate the prostate and bladder and kidneys. He will need to go home with a catheter and he can see me for follow-up as an outpatient probably will need to proceed straight to surgery for a TURP, first would like to have his kidneys recover completely his creatinine normalized or at least get a baseline and him improve and strengthen medical conditions stabilize. I will need to order the CAT scan, he can go home with a catheter once medically stable, he can call my office to make an appointment for any questions please let me know or call me.
[2018-02-22 13:37] VITALS: BP 102/58; PULSE 73; RESP 20; TEMP 36.9; O2SAT 95
--- NOTE | 2018-02-22 16:46 | PCM.PN.HOSP ---
Patient Problems: Active and Suspected Problems (Last Updated 02/21/18 @ 14:09 by Gustavo Sauer DO) HEIDI (acute kidney injury) (Acute) UTI (urinary tract infection) (Acute) Urinary retention due to benign prostatic hyperplasia (Acute) Subjective: Patient was admitted yesterday with acute kidney injury secondary to bladder outlet obstruction with bilateral hydronephroureter consistent with dilatation of both ureter up to UV junction. Patient has urinary incontinence for more than 1 year. Has not seen physician for about 6 years. Patient has Santiago catheter. Mild hematuria. 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 Vitals/I&O's: Vital Signs Temp Pulse Resp BP Pulse Ox 98.5 F 73 20 H 102/58 L 95 02/22/18 13:37 02/22/18 13:37 02/22/18 13:37 02/22/18 13:37 02/22/18 13:37 Oxygen Delivery Method Room Air Weight: 152 lb 8.958 oz Body Mass Index (BMI) 24.6 Intake and Output for Last 24 Hours 02/20/18 02/21/18 02/22/18 23:59 23:59 23:59 Intake Total 256 / 256 1300 / 1300 Output Total 1100 / 1100 3150 / 3150 Balance -844 / -844 -1850 / -1850 General: Alert, Oriented x3, Cooperative HEENT: Atraumatic, PERRLA, EOMI, Normocephalic Neck: Supple, No JVD, Negative Carotid Bruits Lungs: Clear to auscultation, Normal air movement, No rhonchi, No wheeze, No rales Cardiovascular: Regular rate, Regular Rhythm, Normal S1, Normal S2, No murmurs Abdomen: Bowel Sounds Present, Soft, Non Tender, Non-Distended, No Hepato-splenomegaly, - - No renal angle tenderness. No suprapubic tenderness. Santiago catheter shows mild hematuria. Extremities: No edema, Capillary Refill Less than 3 Seconds, - Skin: No rashes, No breakdown Musculoskeletal: No Tenderness to Palpation of Joints or Extremities, Arthritic Changes Neurological: Cranial nerves II-XII grossly intact Psych/Mental Status: Normal Affect, Appropriate Laboratory Results 02/21/18 13:25: Urine Creatinine 59.50 02/21/18 13:25: Ur Random Sodium 62 02/22/18 05:35: WBC 9.8, RBC 3.37 L, Hgb 9.7 L, Hct 30.4 L, MCV 90.2, MCH 28.8, MCHC 31.9 L, RDW 13.5, RDW Differential 43.4, Plt Count 197, MPV 9.8, Immature Gran % (Auto) 0.200, Neut % (Auto) 78.2 H, Lymph % (Auto) 9.5 L, [place] % (Auto) 11.6 H, Eos % (Auto) 0.4, Baso % (Auto) 0.1, Absolute Neuts (auto) 7.6, Absolute Lymphs (auto) 0.93, Total Counted Not Reportable 02/22/18 05:35: Sodium 142, Potassium 4.7, Chloride 110 H, Carbon Dioxide 20.0 L, Anion Gap 12, BUN 67 H, Creatinine 5.73 H, Estim Creat Clear Calc 9.12, Est GFR (MDRD) Af Amer 12 L, Est GFR (MDRD) Non-Af 10 L, BUN/Creatinine Ratio 11.7, Glucose 113 H, Calcium 8.7 Current Medications Acetaminophen (Tylenol) 650 mg PO Q6H PRN PRN PRN Reason: Mild Pain (1-3)/Temp > 100.7 F Heparin Sodium (Porcine) (Heparin Na) 5,000 unit SC Q12 [facility] Last Admin: 02/22/18 12:44 Dose: Not Given Ceftriaxone Sodium (Rocephin) 1 gm in 50 mls @ 100 mls/hr IV Q24 [facility] Last Admin: 02/22/18 09:10 Dose: 100 mls/hr Magnesium Hydroxide (Milk Of Magnesia) 30 ml PO DAILY PRN PRN PRN Reason: Constipation Nutritional Formula (Lactose Free) (Ensure Enlive) 120 ml PO 4X/DAY [facility] Last Admin: 02/22/18 15:00 Dose: 120 ml Ondansetron HCl (Zofran) 4 mg IV Q8H PRN PRN PRN Reason: NAUSEA Sodium Chloride () 5 - 30 ml IV UD PRN PRN Reason: SALINE FLUSH Last Admin: 02/22/18 09:10 Dose: 10 ml Tamsulosin HCl (Flomax) 0.4 mg PO DAILY@1730 [facility] Last Admin: 02/21/18 16:49 Dose: 0.4 mg Medical Necessity - Tobacco Use Smoking Status: Never smoker Tobacco Use: Non-smoker, Chew Assessment/Plan All Active Problems (Last Updated 02/21/18 @ 14:09 by Gustavo Sauer DO) HEIDI (acute kidney injury) (Acute) UTI (urinary tract infection) (Acute) Urinary retention due to benign prostatic hyperplasia (Acute) This 82-year-old gentleman who has not seen a physician for about 6 years was admitted with acute kidney injury secondary to bladder outlet obstruction with bilateral hydronephrosis and hydroureter admitting creatinine was 6. 3 3, BUN 66, bicarb 19, anion gap 12. UA positive of WBC 25-50 cells, 2+ bacteria, LE positive but nitrite negative. Urinary sodium 62 with urine creatinine 59.5. 1. Acute kidney injury most probably secondary to BPH/bladder outlet obstruction with bilateral hydronephrosis and hydroureter, dilatation of urinary tract up to UV junction: Patient has Santiago catheter and had immediate 1 L of urine drained. Renal bladder ultrasound shows bilateral hydronephrosis down to the UV junction. Bladder wall was diffusely thickened and trabeculated. Similar finding in CT abdomen. No demonstrated source of distal urinary tract. On IV fluid. Flomax. Retirement Plan Specialist and urologist consult reviewed. Discussed with Dr. Knox and he had advised to continue Santiago drainage for his kidney function to return to baseline and probably plan for TURP on Tuesday. 2. UTI: Continue ceftriaxone. UA suggestive of UTI. Urine culture pending. Based on urinalysis findings Continue with ceftriaxone that was started in the emergency room Follow-up urine culture 3. at acute on chronic anemia mostly secondary to mild hematuria on baseline chronic anemia: Monitor hemoglobin. Currently H&H 9.7/30.4. CBC tomorrow a.m. 4. DVT prophylaxis: Bilateral SCDs. Discontinue heparin. Patient requires more than 2 midnight stays for acute kidney injury with severe bladder outlet obstruction. Laboratory Results 02/21/18 13:25: Urine Creatinine 59.50 02/21/18 13:25: Ur Random Sodium 62 02/22/18 05:35: WBC 9.8, RBC 3.37 L, Hgb 9.7 L, Hct 30.4 L, MCV 90.2, MCH 28.8, MCHC 31.9 L, RDW 13.5, RDW Differential 43.4, Plt Count 197, MPV 9.8, Immature Gran % (Auto) 0.200, Neut % (Auto) 78.2 H, Lymph % (Auto) 9.5 L, [place] % (Auto) 11.6 H, Eos % (Auto) 0.4, Baso % (Auto) 0.1, Absolute Neuts (auto) 7.6, Absolute Lymphs (auto) 0.93, Total Counted Not Reportable 02/22/18 05:35: Sodium 142, Potassium 4.7, Chloride 110 H, Carbon Dioxide 20.0 L, Anion Gap 12, BUN 67 H, Creatinine 5.73 H, Estim Creat Clear Calc 9.12, Est GFR (MDRD) Af Amer 12 L, Est GFR (MDRD) Non-Af 10 L, BUN/Creatinine Ratio 11.7, Glucose 113 H, Calcium 8.7 Clinical Impression(s) from Imaging Studies Renal Ultrasound 02/21/18 14:30 IMPRESSION: 1. Bilateral hydronephrosis down to the ureterovesical junctions. Bilateral ureteral jets were not visualized. 2. The bladder wall is diffusely thickened and trabeculated. A Santiago catheter is incidentally noted. Abdomen/Pelvis CT 02/22/18 11:55 IMPRESSION: 1. Bilateral hydroureteronephrosis down to the ureterovesical junctions again noted. Diffusely thickened and trabeculated urinary bladder wall also again seen. There is no other demonstrated source of distal urinary tract obstruction. A Santiago catheter and small volume gas are seen within the bladder lumen. 2. Atherosclerotic calcifications of the coronary arteries, thoracoabdominal aorta, and proximal iliac arteries. There is 2.6 cm fusiform ectasia of the mid to distal infrarenal aorta and 16 mm diameter ectasia of the common iliac arteries. 3. 1 cm periampullary duodenal diverticulum. Colonic diverticulosis also present without acute diverticulitis. No sign of bowel obstruction. The appendix is normal. 4. Small midline defect of the high anterior abdominal wall abscess for a 4.5 cm sessile herniation of fat. 5. 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 Code Visit Inpatient E&M: 62318 Subs Hosp L3
--- NOTE | 2018-02-22 16:57 | PN_ITS ---
Patient Problems: Active and Suspected Problems (Last Updated 02/21/18 @ 14:09 by Gustavo Sauer DO) HEIDI (acute kidney injury) (Acute) UTI (urinary tract infection) (Acute) Urinary retention due to benign prostatic hyperplasia (Acute) Subjective: Patient was admitted yesterday with acute kidney injury secondary to bladder outlet obstruction with bilateral hydronephroureter consistent with dilatation of both ureter up to UV junction. Patient has urinary incontinence for more than 1 year. Has not seen physician for about 6 years. Patient has Santiago catheter. Mild hematuria. Discussed with clinical program consultant and urologist. Vitals/I&O's: Vital Signs Temp Pulse Resp BP Pulse Ox 98.5 F 73 20 H 102/58 L 95 02/22/18 13:37 02/22/18 13:37 02/22/18 13:37 02/22/18 13:37 02/22/18 13:37 Oxygen Delivery Method Room Air Weight: 152 lb 8.958 oz Body Mass Index (BMI) 24.6 Intake and Output for Last 24 Hours 02/20/18 02/21/18 02/22/18 23:59 23:59 23:59 Intake Total 256 / 256 1300 / 1300 Output Total 1100 / 1100 3150 / 3150 Balance -844 / -844 -1850 / -1850 General: Alert, Oriented x3, Cooperative HEENT: Atraumatic, PERRLA, EOMI, Normocephalic Neck: Supple, No JVD, Negative Carotid Bruits Lungs: Clear to auscultation, Normal air movement, No rhonchi, No wheeze, No rales Cardiovascular: Regular rate, Regular Rhythm, Normal S1, Normal S2, No murmurs Abdomen: Bowel Sounds Present, Soft, Non Tender, Non-Distended, No Hepato- splenomegaly, - - No renal angle tenderness. No suprapubic tenderness. Santiago catheter shows mild hematuria. Extremities: No edema, Capillary Refill Less than 3 Seconds, - Skin: No rashes, No breakdown Musculoskeletal: No Tenderness to Palpation of Joints or Extremities, Arthritic Changes Neurological: Cranial nerves II-XII grossly intact Psych/Mental Status: Normal Affect, Appropriate Laboratory Results 02/21/18 13:25: Urine Creatinine 59.50 02/21/18 13:25: Ur Random Sodium 62 02/22/18 05:35: WBC 9.8, RBC 3.37 L, Hgb 9.7 L, Hct 30.4 L, MCV 90.2, MCH 28.8, MCHC 31.9 L, RDW 13.5, RDW Differential 43.4, Plt Count 197, MPV 9.8, Immature Gran % (Auto) 0.200, Neut % (Auto) 78.2 H, Lymph % (Auto) 9.5 L, [place] % (Auto) 11.6 H, Eos % (Auto) 0.4, Baso % (Auto) 0.1, Absolute Neuts (auto) 7.6, Absolute Lymphs (auto) 0.93, Total Counted Not Reportable 02/22/18 05:35: Sodium 142, Potassium 4.7, Chloride 110 H, Carbon Dioxide 20.0 L , Anion Gap 12, BUN 67 H, Creatinine 5.73 H, Estim Creat Clear Calc 9.12, Est GFR (MDRD) Af Amer 12 L, Est GFR (MDRD) Non-Af 10 L, BUN/Creatinine Ratio 11.7, Glucose 113 H, Calcium 8.7 Current Medications Acetaminophen (Tylenol) 650 mg PO Q6H PRN PRN PRN Reason: Mild Pain (1-3)/Temp > 100.7 F Heparin Sodium (Porcine) (Heparin Na) 5,000 unit SC Q12 [facility] Last Admin: 02/22/18 12:44 Dose: Not Given Ceftriaxone Sodium (Rocephin) 1 gm in 50 mls @ 100 mls/hr IV Q24 [facility] Last Admin: 02/22/18 09:10 Dose: 100 mls/hr Magnesium Hydroxide (Milk Of Magnesia) 30 ml PO DAILY PRN PRN PRN Reason: Constipation Nutritional Formula (Lactose Free) (Ensure Enlive) 120 ml PO 4X/DAY [facility] Last Admin: 02/22/18 15:00 Dose: 120 ml Ondansetron HCl (Zofran) 4 mg IV Q8H PRN PRN PRN Reason: NAUSEA Sodium Chloride () 5 - 30 ml IV UD PRN PRN Reason: SALINE FLUSH Last Admin: 02/22/18 09:10 Dose: 10 ml Tamsulosin HCl (Flomax) 0.4 mg PO DAILY@1730 [facility] Last Admin: 02/21/18 16:49 Dose: 0.4 mg Medical Necessity - Tobacco Use Smoking Status: Never smoker Tobacco Use: Non-smoker, Chew Assessment/Plan All Active Problems (Last Updated 02/21/18 @ 14:09 by Gustavo Sauer DO) HEIDI (acute kidney injury) (Acute) UTI (urinary tract infection) (Acute) Urinary retention due to benign prostatic hyperplasia (Acute) This 82-year-old gentleman who has not seen a physician for about 6 years was admitted with acute kidney injury secondary to bladder outlet obstruction with bilateral hydronephrosis and hydroureter admitting creatinine was 6. 3 3, BUN 66, bicarb 19, anion gap 12. UA positive of WBC 25-50 cells, 2+ bacteria, LE positive but nitrite negative. Urinary sodium 62 with urine creatinine 59.5. 1. Acute kidney injury most probably secondary to BPH/bladder outlet obstruction with bilateral hydronephrosis and hydroureter, dilatation of urinary tract up to UV junction: Patient has Santiago catheter and had immediate 1 L of urine drained. Renal bladder ultrasound shows bilateral hydronephrosis down to the UV junction. Bladder wall was diffusely thickened and trabeculated. Similar finding in CT abdomen. No demonstrated source of distal urinary tract. On IV fluid. Flomax. 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 Discussed with Dr. Knox and he had advised to continue Santiago drainage for his kidney function to return to baseline and probably plan for TURP on Tuesday. 2. UTI: Continue ceftriaxone. UA suggestive of UTI. Urine culture pending. * Based on urinalysis findings * Continue with ceftriaxone that was started in the emergency room * Follow-up urine culture 3. at acute on chronic anemia mostly secondary to mild hematuria on baseline chronic anemia: Monitor hemoglobin. Currently H&H 9.7/30.4. CBC tomorrow a.m. 4. DVT prophylaxis: Bilateral SCDs. Discontinue heparin. Patient requires more than 2 midnight stays for acute kidney injury with severe bladder outlet obstruction. Laboratory Results 02/21/18 13:25: Urine Creatinine 59.50 02/21/18 13:25: Ur Random Sodium 62 02/22/18 05:35: WBC 9.8, RBC 3.37 L, Hgb 9.7 L, Hct 30.4 L, MCV 90.2, MCH 28.8, MCHC 31.9 L, RDW 13.5, RDW Differential 43.4, Plt Count 197, MPV 9.8, Immature Gran % (Auto) 0.200, Neut % (Auto) 78.2 H, Lymph % (Auto) 9.5 L, [place] % (Auto) 11.6 H, Eos % (Auto) 0.4, Baso % (Auto) 0.1, Absolute Neuts (auto) 7.6, Absolute Lymphs (auto) 0.93, Total Counted Not Reportable 02/22/18 05:35: Sodium 142, Potassium 4.7, Chloride 110 H, Carbon Dioxide 20.0 L , Anion Gap 12, BUN 67 H, Creatinine 5.73 H, Estim Creat Clear Calc 9.12, Est GFR (MDRD) Af Amer 12 L, Est GFR (MDRD) Non-Af 10 L, BUN/Creatinine Ratio 11.7, Glucose 113 H, Calcium 8.7 Clinical Impression(s) from Imaging Studies Renal Ultrasound 02/21/18 14:30 IMPRESSION: 1. Bilateral hydronephrosis down to the ureterovesical junctions. Bilateral ureteral jets were not visualized. 2. The bladder wall is diffusely thickened and trabeculated. A Santiago catheter is incidentally noted. Abdomen/Pelvis CT 02/22/18 11:55 IMPRESSION: 1. Bilateral hydroureteronephrosis down to the ureterovesical junctions again noted. Diffusely thickened and trabeculated urinary bladder wall also again seen. There is no other demonstrated source of distal urinary tract obstruction. A Santiago catheter and small volume gas are seen within the bladder lumen. 2. Atherosclerotic calcifications of the coronary arteries, thoracoabdominal aorta, and proximal iliac arteries. There is 2.6 cm fusiform ectasia of the mid to distal infrarenal aorta and 16 mm diameter ectasia of the common iliac arteries. 3. 1 cm periampullary duodenal diverticulum. Colonic diverticulosis also present without acute diverticulitis. No sign of bowel obstruction. The appendix is normal. 4. Small midline defect of the high anterior abdominal wall abscess for a 4.5 cm sessile herniation of fat. 5. 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 Code Visit Inpatient E&M: 08466 Subs Hosp L3
--- NOTE | 2018-02-22 17:14 | PCM.PN.REN ---
Patient Problems: Active and Suspected Problems (Last Updated 02/21/18 @ 14:09 by Gustavo Sauer DO) HEIDI (acute kidney injury) (Acute) UTI (urinary tract infection) (Acute) Urinary retention due to benign prostatic hyperplasia (Acute) Subjective: no new complaints - Physical Exam General: Alert, Oriented x3, Cooperative HEENT: Atraumatic, PERRLA, EOMI, Normocephalic Neck: Supple, No JVD, Negative Carotid Bruits Lungs: Clear to auscultation, Normal air movement Cardiovascular: Regular rate, No murmurs Abdomen: Bowel Sounds Present, Soft, Non Tender Extremities: No edema, Capillary Refill Less than 3 Seconds Skin: No rashes, No breakdown Musculoskeletal: No Tenderness to Palpation of Joints or Extremities Neurological: Cranial nerves II-XII grossly intact Psych/Mental Status: Normal Affect, Appropriate Vital Signs Temp Pulse Resp BP Pulse Ox 98.5 F 73 20 H 102/58 L 95 02/22/18 13:37 02/22/18 13:37 02/22/18 13:37 02/22/18 13:37 02/22/18 13:37 Oxygen Delivery Method Room Air Weight: 69.2 kg Body Mass Index (BMI) 24.6 Intake and Output for Last 24 Hours 02/20/18 02/21/18 02/22/18 23:59 23:59 23:59 Intake Total 256 / 256 1300 / 1300 Output Total 1100 / 1100 3150 / 3150 Balance -844 / -844 -1850 / -1850 Laboratory Tests Past 24 Hrs 02/21/18 02/21/18 02/22/18 13:25 13:25 05:35 WBC 9.8 RBC 3.37 L Hgb 9.7 L Hct 30.4 L MCV 90.2 MCH 28.8 MCHC 31.9 L RDW 13.5 RDW Differential 43.4 Plt Count 197 MPV 9.8 Immature Gran % (Auto) 0.200 Neut % (Auto) 78.2 H Lymph % (Auto) 9.5 L [place] % (Auto) 11.6 H Eos % (Auto) 0.4 Baso % (Auto) 0.1 Absolute Neuts (auto) 7.6 Absolute Lymphs (auto) 0.93 Total Counted Not Reportable Sodium Potassium Chloride Carbon Dioxide Anion Gap BUN Creatinine Estim Creat Clear Calc Est GFR (MDRD) Af Amer Est GFR (MDRD) Non-Af BUN/Creatinine Ratio Glucose Calcium Ur Random Sodium 62 Urine Creatinine 59.50 02/22/18 05:35 WBC RBC Hgb Hct MCV MCH MCHC RDW RDW Differential Plt Count MPV Immature Gran % (Auto) Neut % (Auto) Lymph % (Auto) [place] % (Auto) Eos % (Auto) Baso % (Auto) Absolute Neuts (auto) Absolute Lymphs (auto) Total Counted Sodium 142 Potassium 4.7 Chloride 110 H Carbon Dioxide 20.0 L Anion Gap 12 BUN 67 H Creatinine 5.73 H Estim Creat Clear Calc 9.12 Est GFR (MDRD) Af Amer 12 L Est GFR (MDRD) Non-Af 10 L BUN/Creatinine Ratio 11.7 Glucose 113 H Calcium 8.7 Ur Random Sodium Urine Creatinine Medical Necessity - Tobacco Use Smoking Status: Never smoker Tobacco Use: Non-smoker, Chew Assessment/Plan All Active Problems (Last Updated 02/21/18 @ 14:09 by Gustavo Sauer DO) HEIDI (acute kidney injury) (Acute) UTI (urinary tract infection) (Acute) Urinary retention due to benign prostatic hyperplasia (Acute) HEIDI. baseline creatinine as of 6 years ago was 1.1. now 6.4 Likely obstructive. garcía placed with immediate return of 1 L. still draining a large amount of blood tinged urine. creatinine is better. Anemia. Hb as outpatient was low. now has hematuria. Hb lower today Obstructive nephropathy. s/p garcía placement. reviewed urology note. CT abdomen reviewed, still had moderate hydronephrosis on CT. outpatient follow up as per urology. of note he lost about 70 lbs within last couple years, also had poor appetite. ok to dc from renal standpoint if creatinine continues to improve tomorrow
[2018-02-22] MEDS: Tamsulosin HCl 0.4 MG Capsule PO (18:37)
[2018-02-22 20:05] VITALS: BP 110/69; PULSE 76; RESP 18; TEMP 37.4; O2SAT 98
[2018-02-23 02:20] VITALS: BP 108/62; PULSE 68; RESP 18; TEMP 37.1; O2SAT 98
--- NOTE | 2018-02-23 07:42 | PCM.PN.BLA ---
Progress Note mass in the bladder plan of cysto and possible turp tomorrow npo for surgery tomorrow.
--- NOTE | 2018-02-23 09:00 | PN_ITS ---
Patient Problems: Active and Suspected Problems (Last Updated 02/21/18 @ 14:09 by Gustavo Sauer DO) HEIDI (acute kidney injury) (Acute) UTI (urinary tract infection) (Acute) Urinary retention due to benign prostatic hyperplasia (Acute) Subjective: Patient did not had fever. Heart rate is good. EKG and chest x-ray PA and lateral ordered as a preop evaluation for possible TURP tomorrow. Patient denies chest pain, shortness of breath, palpitation or prior cardiopulmonary disease. Vitals/I&O's: Vital Signs Temp Pulse Resp BP Pulse Ox 98.7 F 68 18 108/62 98 02/23/18 02:20 02/23/18 02:20 02/23/18 02:20 02/23/18 02:20 02/23/18 02:20 Oxygen Delivery Method Room Air Weight: 152 lb 8.958 oz Body Mass Index (BMI) 24.6 Intake and Output for Last 24 Hours 02/21/18 02/22/18 02/23/18 23:59 23:59 23:59 Intake Total 256 / 256 1600 / 1600 50 / 50 Output Total 1100 / 1100 3700 / 3700 1200 / 1200 Balance -844 / -844 -2100 / -2100 -1150 / -1150 General: Alert, Oriented x3, Cooperative HEENT: Atraumatic, PERRLA, EOMI, Normocephalic Neck: Supple, No JVD, Negative Carotid Bruits Lungs: Clear to auscultation, No rhonchi, No wheeze, No rales, Diminished Cardiovascular: Regular rate, Regular Rhythm, Normal S1, Normal S2, No murmurs Abdomen: Bowel Sounds Present, Soft, Non Tender, Non-Distended, - - Mild hematuria in the Santiago catheter. Extremities: No edema, Capillary Refill Less than 3 Seconds Skin: No rashes, No breakdown Musculoskeletal: No Tenderness to Palpation of Joints or Extremities Neurological: Cranial nerves II-XII grossly intact Psych/Mental Status: Normal Affect, Appropriate Current Medications Acetaminophen (Tylenol) 650 mg PO Q6H PRN PRN PRN Reason: Mild Pain (1-3)/Temp > 100.7 F Ceftriaxone Sodium (Rocephin) 1 gm in 50 mls @ 100 mls/hr IV Q24 ALEX Last Admin: 10/03/18 09:10 Dose: 100 mls/hr Magnesium Hydroxide (Milk Of Magnesia) 30 ml PO DAILY PRN PRN PRN Reason: Constipation Nutritional Formula (Lactose Free) (Ensure Enlive) 120 ml PO 4X/DAY [facility] Last Admin: 02/22/18 21:11 Dose: Not Given Ondansetron HCl (Zofran) 4 mg IV Q8H PRN PRN PRN Reason: NAUSEA Sodium Chloride () 5 - 30 ml IV UD PRN PRN Reason: SALINE FLUSH Last Admin: 02/22/18 09:10 Dose: 10 ml Tamsulosin HCl (Flomax) 0.4 mg PO DAILY@1730 [facility] Last Admin: 02/22/18 18:37 Dose: 0.4 mg Medical Necessity - Tobacco Use Smoking Status: Never smoker Tobacco Use: Non-smoker, Chew Assessment/Plan All Active Problems (Last Updated 02/21/18 @ 14:09 by Gustavo Sauer DO) HEIDI (acute kidney injury) (Acute) UTI (urinary tract infection) (Acute) Urinary retention due to benign prostatic hyperplasia (Acute) This 82-year-old gentleman who has not seen a physician for about 6 years was admitted with acute kidney injury secondary to bladder outlet obstruction with bilateral hydronephrosis and hydroureter admitting creatinine was 6. 3 3, BUN 66, bicarb 19, anion gap 12. UA positive of WBC 25-50 cells, 2+ bacteria, LE positive but nitrite negative. Urinary sodium 62 with urine creatinine 59.5. Patient also gave history of weight loss of about 70 pounds in last 2-3 years. 1. Acute kidney injury most probably secondary to BPH/bladder outlet obstruction with bilateral hydronephrosis and hydroureter, dilatation of urinary tract up to UV junction: Patient has Santiago catheter and had immediate 1 L of urine drained. Renal bladder ultrasound shows bilateral hydronephrosis down to the UV junction. Bladder wall was diffusely thickened and trabeculated. Similar finding in CT abdomen. No demonstrated source of distal urinary tract. On IV fluid. Flomax. Manager Sap and urologist consult reviewed. Discussed with Dr. Knox and he had advised to continue Santiago drainage for his kidney function to return to baseline and probably plan for TURP on Tuesday. Preoperative evaluation for TURP EKG was done. It is normal sinus rhythm with PACs at 92 bpm. Chest x-ray report is as lungs hyperexpanded. Coarsened interstitial markings suggestive of mild chronic fibrosis. No gross focal infiltrate, effusion or acute disease. Patient said he has never been a smoker. Preop evaluation: Patient is moderate perioperative risk for cystoscopy and possible TURP. The Villarreal perioperative cardiovascular risk is 0.14% 2. UTI: Continue ceftriaxone. UA suggestive of UTI. * Based on urinalysis findings * Continue with ceftriaxone that was started in the emergency room * Urine culture shows mixed gram-positive organism sensitive contamination. But clinically, continue antibiotic in view of positive UA with obstructive uropathy 3. Mild acute on chronic anemia mostly secondary to mild hematuria on baseline chronic anemia: Monitor hemoglobin. Currently H&H 9.7/30.1. CBC tomorrow a.m. 4. DVT prophylaxis: Bilateral SCDs. Discontinue heparin. 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 Microbiology Past 72 Hours 02/21/18 13:25 Urine Catheter - Santiago Urine Culture - Preliminary Coag Negative Staph Laboratory Results 02/23/18 09:15: WBC 8.3, RBC 3.35 L, Hgb 9.7 L, Hct 30.1 L, MCV 89.9, MCH 29.0, MCHC 32.2, RDW 13.5, RDW Differential 42.8, Plt Count 188, MPV 9.6, Immature Gran % (Auto) 0.200, Neut % (Auto) 75.1 H, Lymph % (Auto) 13.1 L, [place] % (Auto) 8.5, Eos % (Auto) 2.9, Baso % (Auto) 0.2, Absolute Neuts (auto) 6.2, Absolute Lymphs (auto) 1.08, Total Counted Not Reportable 02/23/18 09:15: Sodium 141, Potassium 4.0, Chloride 110 H, Carbon Dioxide 19.0 L , Anion Gap 12, BUN 65 H, Creatinine 5.06 H, Estim Creat Clear Calc 10.33, Est GFR (MDRD) Af Amer 14 L, Est GFR (MDRD) Non-Af 12 L, BUN/Creatinine Ratio 12.8, Glucose 123 H, Calcium 8.3 L Clinical Impression(s) from Imaging Studies Renal Ultrasound 02/21/18 14:30 IMPRESSION: 1. Bilateral hydronephrosis down to the ureterovesical junctions. Bilateral ureteral jets were not visualized. 2. The bladder wall is diffusely thickened and trabeculated. A Santiago catheter is incidentally noted. Abdomen/Pelvis CT 02/22/18 11:55 IMPRESSION: 1. Bilateral hydroureteronephrosis down to the ureterovesical junctions again noted. Diffusely thickened and trabeculated urinary bladder wall also again seen. There is no other demonstrated source of distal urinary tract obstruction. A Santiago catheter and small volume gas are seen within the bladder lumen. 2. Atherosclerotic calcifications of the coronary arteries, thoracoabdominal aorta, and proximal iliac arteries. There is 2.6 cm fusiform ectasia of the mid to distal infrarenal aorta and 16 mm diameter ectasia of the common iliac arteries. 3. 1 cm periampullary duodenal diverticulum. Colonic diverticulosis also present without acute diverticulitis. No sign of bowel obstruction. The appendix is normal. 4. Small midline defect of the high anterior abdominal wall abscess for a 4.5 cm sessile herniation of fat. 5. 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 Code Visit Inpatient E&M: 37175 [facility] Hosp L3
[2018-02-23 09:20] VITALS: BP 117/66; PULSE 87; RESP 16; TEMP 36.8; O2SAT 99
[2018-02-23 09:31] LABS: Absolute Lymphocyte Count 1.08 X10^3/ul (0.83-4.51); Absolute Neutrophil Count 6.2 X10^3/uL (2.0-7.7); Basophil# 0.02 X10^3/uL; Basophil% 0.2 % (0-1); Eosinophil# 0.24 X10^3/uL; Eosinophils% 2.9 % (0-5); Hematocrit 30.1 % (40-54); Hemoglobin 9.7 g/dl (13.0-16.5); Lymphocyte # 1.08 X10^3/ul (4.0); Lymphocyte % 13.1 % (19-41); Mean Corp Hgb Conc 32.2 g/gl (32-36); Mean Corpuscular Volume 89.9 fL (80-94); Mean Platelet Vol. 9.6 fl (6.2-12.0); Monocyte% 8.5 % (0-10); Neutrophil # 6.21 X10^3/uL (2.7-7.7); Neutrophil % 75.1 % (47-70); Platelet Count 188 K/mm3 (150-450); RBC Distribution Width CV 13.5 % (11.6-14.6); RBC Distribution Width SD 42.8 fl (35.1-43.9); Red Blood Count 3.35 M/mm3 (4.6-6.2); White Blood Count 8.3 K/mm3 (4.4-11.0)
[2018-02-23 09:32] LABS: POSITIVE COUNT NO; POSITIVE DIFFERENTIAL NO; POSITIVE MORPHOLOGY NO
[2018-02-23 09:54] LABS: Anion Gap 12 (5-15); BUN 65 mg/dL (7-18); BUN/Creat Ratio 12.8 RATIO (10-20); Calcium,Total 8.3 mg/dL (8.5-10.1); Chloride 110 mmol/L (98-107); Creatinine, Serum 5.06 mg/dL (0.70-1.30); EST Glomerular Filtration Rate 12 mL/min (>60); Est Glom Filt Rate - Afr Amer 14 mL/min (>60); Estimated Creatinine Clearance 10.33 ml/min; Glucose 123 mg/dL (74-106); Sodium Level 141 mmol/L (136-145)
[2018-02-23] MEDS: Ceftriaxone 1 GM/50 ML BAG IV (10:34)
[2018-02-23] MEDS: 0.9% NaCl Peripheral Flush Adult/Peds IV (10:36)
--- NOTE | 2018-02-23 11:06 | EKG12_ITS ---
Test Reason : PREOP Blood Pressure : / mmHG Vent. Rate : 093 BPM Atrial Rate : 093 BPM P-R Int : 188 ms QRS Dur : 080 ms QT Int : 336 ms P-R-T Axes : 074 -08 022 degrees QTc Int : 417 ms Sinus rhythm with Premature atrial complexes Septal infarct , age undetermined Abnormal ECG No previous ECGs available Confirmed by JORDIN SAMANIEGO, CRISTAL ([id number]), health editor JACKY DE DIOS ([id number] on 03/01/2018 3:45:27 PM Referred By: MELANI Confirmed By:CRISTAL BRENNER MD
--- NOTE | 2018-02-23 11:06 | RAD_ITS ---
STUDY: X-RAY CHEST REASON FOR EXAM: Male, 82 years old. Preop TURP. TECHNIQUE: Frontal and lateral views of the chest. COMPARISON: None. FINDINGS: The lungs are hyperexpanded. There are coarsened interstitial markings suggestive of mild chronic fibrosis. No gross focal infiltrates. No gross effusions. Normal size heart. Normal mediastinum and palma. Normal visualized pulmonary arteries. There is atherosclerotic tortuosity of the aortic arch and descending thoracic aorta. There are diffuse degenerative changes of the visualized thoracic spine. Normal visualized ribs, clavicles, and shoulders. There is no demonstrated abnormality of the visualized soft tissue structures of the upper abdomen. RAD/Chest PA and Lateral IMPRESSION: No acute chest disease. Electronically Signed: Tyshawn Olivia MD at 12:19 EDT , Service support ,
--- NOTE | 2018-02-23 11:58 | PCM.PN.REN ---
Patient Problems: Active and Suspected Problems (Last Updated 02/21/18 @ 14:09 by Gustavo Sauer DO) HEIDI (acute kidney injury) (Acute) UTI (urinary tract infection) (Acute) Urinary retention due to benign prostatic hyperplasia (Acute) Subjective: no new complaints - Physical Exam General: Alert, Oriented x3, Cooperative HEENT: Atraumatic, PERRLA, EOMI, Normocephalic Neck: Supple, No JVD, Negative Carotid Bruits Lungs: Clear to auscultation, Normal air movement Cardiovascular: Regular rate, No murmurs Abdomen: Bowel Sounds Present, Soft, Non Tender Extremities: No edema, Capillary Refill Less than 3 Seconds Skin: No rashes, No breakdown Musculoskeletal: No Tenderness to Palpation of Joints or Extremities Neurological: Cranial nerves II-XII grossly intact Psych/Mental Status: Normal Affect, Appropriate Vital Signs Temp Pulse Resp BP Pulse Ox 98.2 F 87 16 117/66 99 02/23/18 09:20 02/23/18 09:20 02/23/18 09:20 02/23/18 09:20 02/23/18 09:20 Oxygen Delivery Method Room Air Weight: 69.2 kg Body Mass Index (BMI) 24.6 Intake and Output for Last 24 Hours 02/21/18 02/22/18 02/23/18 23:59 23:59 23:59 Intake Total 256 / 256 1600 / 1600 50 / 50 Output Total 1100 / 1100 3700 / 3700 1200 / 1200 Balance -844 / -844 -2100 / -2100 -1150 / -1150 Microbiology Past 72 Hours 02/21/18 13:25 Urine Culture - Preliminary Urine Catheter - García Coag Negative Staph Laboratory Tests Past 24 Hrs 02/23/18 02/23/18 09:15 09:15 WBC 8.3 RBC 3.35 L Hgb 9.7 L Hct 30.1 L MCV 89.9 MCH 29.0 MCHC 32.2 RDW 13.5 RDW Differential 42.8 Plt Count 188 MPV 9.6 Immature Gran % (Auto) 0.200 Neut % (Auto) 75.1 H Lymph % (Auto) 13.1 L [place] % (Auto) 8.5 Eos % (Auto) 2.9 Baso % (Auto) 0.2 Absolute Neuts (auto) 6.2 Absolute Lymphs (auto) 1.08 Total Counted Not Reportable Sodium 141 Potassium 4.0 Chloride 110 H Carbon Dioxide 19.0 L Anion Gap 12 BUN 65 H Creatinine 5.06 H Estim Creat Clear Calc 10.33 Est GFR (MDRD) Af Amer 14 L Est GFR (MDRD) Non-Af 12 L BUN/Creatinine Ratio 12.8 Glucose 123 H Calcium 8.3 L Medical Necessity - Tobacco Use Smoking Status: Never smoker Tobacco Use: Non-smoker, Chew Assessment/Plan All Active Problems (Last Updated 02/21/18 @ 14:09 by Gustavo Sauer DO) HEIDI (acute kidney injury) (Acute) UTI (urinary tract infection) (Acute) Urinary retention due to benign prostatic hyperplasia (Acute) HEIDI. baseline creatinine as of 6 years ago was 1.1. now 6.4 Likely obstructive. garcía placed with immediate return of 1 L. still draining a large amount of blood tinged urine. creatinine is better. Anemia. Hb as outpatient was low. now has hematuria. Hb stable Obstructive nephropathy. s/p garcía placement. reviewed urology note. CT abdomen reviewed, still had moderate hydronephrosis on CT. for TURP tomorrow of note he lost about 70 lbs within last couple years, also had poor appetite. to OR tomorrow
[2018-02-23 15:30] VITALS: BP 145/84; PULSE 99; RESP 16; TEMP 36.5; O2SAT 98
--- NOTE | 2018-02-23 15:46 | CASEMGMT ---
RN CM NOTE: PT/OT evals completed and reviewed. Additional therapy recommended. RN CM to room to talk with pt. Intro self and role to RN CM . Pt sitting up in recliner chair, awake/alert/oriented. Discussed out-pt therapy and C options with pt. Pt declines both, stating, I think I get along pretty well already. Pt states he uses a cane and has 3 walkers available if he needs them. Pt made aware that per therapy eval, he was more steady with use of walker and they are recommending he use it. Pt denies needing any further DME, stating, I have all that I need. Pt denies having any further needs or questions/concerns. CM to follow for any further discharge planning needs that may arise. Jg AGUILAR RN CM
[2018-02-23] MEDS: Tamsulosin HCl 0.4 MG Capsule PO (17:05)
[2018-02-23 21:45] VITALS: BP 93/69; PULSE 77; RESP 16; TEMP 36.7; O2SAT 97
[2018-02-24] VITALS (11 sets, daily range): BP systolic 98–124; BP diastolic 56–85; PULSE 72–99; RESP 16–18; TEMP 36.3–37; O2SAT 96–99; BMI 24.6
[2018-02-24 06:21] LABS: Absolute Lymphocyte Count 1.36 X10^3/ul (0.83-4.51); Absolute Neutrophil Count 5.6 X10^3/uL (2.0-7.7); Basophil# 0.02 X10^3/uL; Basophil% 0.2 % (0-1); Eosinophil# 0.39 X10^3/uL; Eosinophils% 4.8 % (0-5); Hematocrit 29.1 % (40-54); Hemoglobin 9.5 g/dl (13.0-16.5); Lymphocyte # 1.36 X10^3/ul (4.0); Lymphocyte % 16.7 % (19-41); Mean Corp Hgb Conc 32.6 g/gl (32-36); Mean Corpuscular Hgb 29.2 pg (27.0-32.0); Mean Corpuscular Volume 89.5 fL (80-94); Mean Platelet Vol. 9.7 fl (6.2-12.0); Monocyte% 9.8 % (0-10); Neutrophil # 5.56 X10^3/uL (2.7-7.7); Neutrophil % 68.1 % (47-70); POSITIVE COUNT NO; POSITIVE DIFFERENTIAL NO; POSITIVE MORPHOLOGY NO; Platelet Count 193 K/mm3 (150-450); RBC Distribution Width CV 13.3 % (11.6-14.6); RBC Distribution Width SD 41.9 fl (35.1-43.9); Red Blood Count 3.25 M/mm3 (4.6-6.2); White Blood Count 8.2 K/mm3 (4.4-11.0)
[2018-02-24 06:42] LABS: Anion Gap 12 (5-15); BUN 60 mg/dL (7-18); BUN/Creat Ratio 13.1 RATIO (10-20); Calcium,Total 8.5 mg/dL (8.5-10.1); Chloride 108 mmol/L (98-107); Creatinine, Serum 4.58 mg/dL (0.70-1.30); EST Glomerular Filtration Rate 13 mL/min (>60); Est Glom Filt Rate - Afr Amer 16 mL/min (>60); Estimated Creatinine Clearance 11.41 ml/min; Glucose 95 mg/dL (74-106); Potassium 3.9 mmol/L (3.5-5.1); Sodium Level 140 mmol/L (136-145)
--- NOTE | 2018-02-24 09:18 | PCM.PN.HOSP ---
Patient Problems: Active and Suspected Problems (Last Updated 02/21/18 @ 14:09 by Gustavo Sauer DO) HEIDI (acute kidney injury) (Acute) UTI (urinary tract infection) (Acute) Urinary retention due to benign prostatic hyperplasia (Acute) Subjective: Seen and examined today. No untoward event last night. Scheduled for cystoscopy and further evaluation afternoon. Labs, EKG findings and chest x-ray reviewed with the patient and his the room. Vitals/I&O's: Vital Signs Temp Pulse Resp BP Pulse Ox 98.5 F 72 16 112/79 98 02/24/18 08:05 02/24/18 08:05 02/24/18 08:05 02/24/18 08:05 02/24/18 08:05 Oxygen Delivery Method Room Air Weight: 152 lb 8.958 oz Body Mass Index (BMI) 24.6 Intake and Output for Last 24 Hours 02/22/18 02/23/18 02/24/18 23:59 23:59 23:59 Intake Total 1600 / 1600 50 / 50 300 / 300 Output Total 3700 / 3700 2200 / 2200 1300 / 1300 Balance -2100 / -2100 -2150 / -2150 -1000 / -1000 General: Alert, Oriented x3, Cooperative HEENT: Atraumatic, PERRLA, EOMI, Normocephalic Neck: Supple, No JVD, Negative Carotid Bruits Lungs: Clear to auscultation, Normal air movement, No rhonchi, No wheeze, No rales Cardiovascular: Regular rate, Regular Rhythm, Normal S1, Normal S2, No murmurs Abdomen: Bowel Sounds Present, Soft, Non Tender, Non-Distended Extremities: No edema, Capillary Refill Less than 3 Seconds Skin: No rashes, No breakdown Musculoskeletal: No Tenderness to Palpation of Joints or Extremities, Arthritic Changes Neurological: Cranial nerves II-XII grossly intact Psych/Mental Status: Normal Affect, Appropriate Microbiology Past 72 Hours 02/21/18 13:25 Urine Catheter - Santiago Urine Culture - Final Staphylococcus epidermidis Laboratory Results 02/23/18 09:15: WBC 8.3, RBC 3.35 L, Hgb 9.7 L, Hct 30.1 L, MCV 89.9, MCH 29.0, MCHC 32.2, RDW 13.5, RDW Differential 42.8, Plt Count 188, MPV 9.6, Immature Gran % (Auto) 0.200, Neut % (Auto) 75.1 H, Lymph % (Auto) 13.1 L, [place] % (Auto) 8.5, Eos % (Auto) 2.9, Baso % (Auto) 0.2, Absolute Neuts (auto) 6.2, Absolute Lymphs (auto) 1.08, Total Counted Not Reportable 02/23/18 09:15: Sodium 141, Potassium 4.0, Chloride 110 H, Carbon Dioxide 19.0 L, Anion Gap 12, BUN 65 H, Creatinine 5.06 H, Estim Creat Clear Calc 10.33, Est GFR (MDRD) Af Amer 14 L, Est GFR (MDRD) Non-Af 12 L, BUN/Creatinine Ratio 12.8, Glucose 123 H, Calcium 8.3 L 02/24/18 05:45: WBC 8.2, RBC 3.25 L, Hgb 9.5 L, Hct 29.1 L, MCV 89.5, MCH 29.2, MCHC 32.6, RDW 13.3, RDW Differential 41.9, Plt Count 193, MPV 9.7, Immature Gran % (Auto) 0.400, Neut % (Auto) 68.1, Lymph % (Auto) 16.7 L, [place] % (Auto) 9.8, Eos % (Auto) 4.8, Baso % (Auto) 0.2, Absolute Neuts (auto) 5.6, Absolute Lymphs (auto) 1.36, Total Counted Not Reportable 02/24/18 05:45: Sodium 140, Potassium 3.9, Chloride 108 H, Carbon Dioxide 20.0 L, Anion Gap 12, BUN 60 H, Creatinine 4.58 H, Estim Creat Clear Calc 11.41, Est GFR (MDRD) Af Amer 16 L, Est GFR (MDRD) Non-Af 13 L, BUN/Creatinine Ratio 13.1, Glucose 95, Calcium 8.5 Current Medications Acetaminophen (Tylenol) 650 mg PO Q6H PRN PRN PRN Reason: Mild Pain (1-3)/Temp > 100.7 F Ceftriaxone Sodium (Rocephin) 1 gm in 50 mls @ 100 mls/hr IV Q24 ALEX Last Admin: 10/04/18 10:34 Dose: 100 mls/hr Sodium Chloride () 250 mls @ 15 mls/hr IV .[id number] PRN PRN Reason: SALINE FLUSH Magnesium Hydroxide (Milk Of Magnesia) 30 ml PO DAILY PRN PRN PRN Reason: Constipation Nutritional Formula (Lactose Free) (Ensure Enlive) 120 ml PO 4X/DAY [facility] Last Admin: 02/23/18 21:53 Dose: 120 ml Ondansetron HCl (Zofran) 4 mg IV Q8H PRN PRN PRN Reason: NAUSEA Sodium Chloride () 5 - 30 ml IV UD PRN PRN Reason: SALINE FLUSH Last Admin: 02/23/18 10:36 Dose: 10 ml Tamsulosin HCl (Flomax) 0.4 mg PO DAILY@1730 [facility] Last Admin: 02/23/18 17:05 Dose: 0.4 mg Medical Necessity - Tobacco Use Smoking Status: Never smoker Tobacco Use: Non-smoker, Chew Assessment/Plan All Active Problems (Last Updated 02/21/18 @ 14:09 by Gustavo Sauer DO) HEIDI (acute kidney injury) (Acute) UTI (urinary tract infection) (Acute) Urinary retention due to benign prostatic hyperplasia (Acute) This 82-year-old gentleman who has not seen a physician for about 6 years was admitted with acute kidney injury secondary to bladder outlet obstruction with bilateral hydronephrosis and hydroureter admitting creatinine was 6. 3 3, BUN 66, bicarb 19, anion gap 12. UA positive of WBC 25-50 cells, 2+ bacteria, LE positive but nitrite negative. Urinary sodium 62 with urine creatinine 59.5. Patient also gave history of weight loss of about 70 pounds in last 2-3 years. 1. Acute kidney injury most probably secondary to BPH/bladder outlet obstruction with bilateral hydronephrosis and hydroureter, dilatation of urinary tract up to UV junction: Patient has Santiago catheter and had immediate 1 L of urine drained. Renal bladder ultrasound shows bilateral hydronephrosis down to the UV junction. Bladder wall was diffusely thickened and trabeculated. Similar finding in CT abdomen. No demonstrated source of distal urinary tract. On IV fluid. Flomax. 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 Discussed with Dr. Knox and he had advised to continue Santiago drainage for his kidney function to return to baseline and probably plan for TURP on Tuesday. Preoperative evaluation for TURP EKG was done. It is normal sinus rhythm with PACs at 92 bpm. Chest x-ray report is as lungs hyperexpanded. Coarsened interstitial markings suggestive of mild chronic fibrosis. No gross focal infiltrate, effusion or acute disease. Patient said he has never been a smoker. Preop evaluation: Patient is moderate perioperative risk for cystoscopy and possible TURP. The Villarreal perioperative cardiovascular risk is 0.14% 2. UTI: Continue ceftriaxone. UA suggestive of UTI. Based on urinalysis findings Continue with ceftriaxone that was started in the emergency room Urine culture shows staph epidermidis suggestive of contamination. But clinically, continue antibiotic in view of positive UA with obstructive uropathy 3. Mild acute on chronic anemia mostly secondary to mild hematuria on baseline chronic anemia: Monitor hemoglobin. Currently H&H 9.7/30.1. CBC tomorrow a.m. 4. DVT prophylaxis: Bilateral SCDs. Discontinue heparin. 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 Microbiology Past 72 Hours 02/21/18 13:25 Urine Catheter - Santiago Urine Culture - Final Staphylococcus epidermidis Laboratory Results 02/21/18 13:25: Eos Smear Total Cells 4 02/24/18 05:45: WBC 8.2, RBC 3.25 L, Hgb 9.5 L, Hct 29.1 L, MCV 89.5, MCH 29.2, MCHC 32.6, RDW 13.3, RDW Differential 41.9, Plt Count 193, MPV 9.7, Immature Gran % (Auto) 0.400, Neut % (Auto) 68.1, Lymph % (Auto) 16.7 L, [place] % (Auto) 9.8, Eos % (Auto) 4.8, Baso % (Auto) 0.2, Absolute Neuts (auto) 5.6, Absolute Lymphs (auto) 1.36, Total Counted Not Reportable 02/24/18 05:45: Sodium 140, Potassium 3.9, Chloride 108 H, Carbon Dioxide 20.0 L, Anion Gap 12, BUN 60 H, Creatinine 4.58 H, Estim Creat Clear Calc 11.41, Est GFR (MDRD) Af Amer 16 L, Est GFR (MDRD) Non-Af 13 L, BUN/Creatinine Ratio 13.1, Glucose 95, Calcium 8.5 Clinical Impression(s) from Imaging Studies Renal Ultrasound 02/21/18 14:30 IMPRESSION: 1. Bilateral hydronephrosis down to the ureterovesical junctions. Bilateral ureteral jets were not visualized. 2. The bladder wall is diffusely thickened and trabeculated. A Santiago catheter is incidentally noted. Abdomen/Pelvis CT 02/22/18 11:55 IMPRESSION: 1. Bilateral hydroureteronephrosis down to the ureterovesical junctions again noted. Diffusely thickened and trabeculated urinary bladder wall also again seen. There is no other demonstrated source of distal urinary tract obstruction. A Santiago catheter and small volume gas are seen within the bladder lumen. 2. Atherosclerotic calcifications of the coronary arteries, thoracoabdominal aorta, and proximal iliac arteries. There is 2.6 cm fusiform ectasia of the mid to distal infrarenal aorta and 16 mm diameter ectasia of the common iliac arteries. 3. 1 cm periampullary duodenal diverticulum. Colonic diverticulosis also present without acute diverticulitis. No sign of bowel obstruction. The appendix is normal. 4. Small midline defect of the high anterior abdominal wall abscess for a 4.5 cm sessile herniation of fat. 5. 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 Code Visit Inpatient E&M: 11968 [facility] Hosp L3
[2018-02-24 10:19] LABS: Eosinophil Ct. Urine 4 % (.)
[2018-02-24] MEDS: Ceftriaxone 1 GM/50 ML BAG IV (10:51)
[2018-02-24] MEDS: 0.9% NaCl Peripheral Flush Adult/Peds IV (10:52)
--- NOTE | 2018-02-24 11:15 | CASEMGMT ---
RN KRISTI spoke w/pt, pt's , and daughter who are present in the room. Discussion w/pt and family present about PT/OT recommendations and options of out-pt therapy or HHC. Pt again declines both, stating, I'll pass. and daughter both state they also do not feel that pt needs therapy. stated, He gets around at home really well. He still gets out and mows w/the riding mower, he does dishes, and laundry. states she will try to see about her and pt doing more activity once he is at home, such as taking walks and getting out more. Pt and family made aware CM will be available for any further discharge planning needs that may arise. Jg ALEXISN DORIAN BERRY
--- NOTE | 2018-02-24 12:58 | PCM.PN.REN ---
Patient Problems: Active and Suspected Problems (Last Updated 02/21/18 @ 14:09 by Gustavo Sauer DO) HEIDI (acute kidney injury) (Acute) UTI (urinary tract infection) (Acute) Urinary retention due to benign prostatic hyperplasia (Acute) Subjective: no new complaints - Physical Exam General: Alert, Oriented x3, Cooperative HEENT: Atraumatic, PERRLA, EOMI, Normocephalic Neck: Supple, No JVD, Negative Carotid Bruits Lungs: Clear to auscultation, Normal air movement Cardiovascular: Regular rate, No murmurs Abdomen: Bowel Sounds Present, Soft, Non Tender Extremities: No edema, Capillary Refill Less than 3 Seconds Skin: No rashes, No breakdown Musculoskeletal: No Tenderness to Palpation of Joints or Extremities Neurological: Cranial nerves II-XII grossly intact Psych/Mental Status: Normal Affect, Appropriate Vital Signs Temp Pulse Resp BP Pulse Ox 98 F 75 16 107/74 96 02/24/18 12:21 02/24/18 12:21 02/24/18 12:21 02/24/18 12:21 02/24/18 12:21 Oxygen Delivery Method Room Air Weight: 69.2 kg Body Mass Index (BMI) 24.6 Intake and Output for Last 24 Hours 02/22/18 02/23/18 02/24/18 23:59 23:59 23:59 Intake Total 1600 / 1600 50 / 50 300 / 300 Output Total 3700 / 3700 2200 / 2200 1800 / 1800 Balance -2100 / -2100 -2150 / -2150 -1500 / -1500 Microbiology Past 72 Hours 02/21/18 13:25 Urine Culture - Final Urine Catheter - García Staphylococcus epidermidis Laboratory Tests Past 24 Hrs 02/21/18 02/24/18 02/24/18 13:25 05:45 05:45 WBC 8.2 RBC 3.25 L Hgb 9.5 L Hct 29.1 L MCV 89.5 MCH 29.2 MCHC 32.6 RDW 13.3 RDW Differential 41.9 Plt Count 193 MPV 9.7 Immature Gran % (Auto) 0.400 Neut % (Auto) 68.1 Lymph % (Auto) 16.7 L [place] % (Auto) 9.8 Eos % (Auto) 4.8 Baso % (Auto) 0.2 Absolute Neuts (auto) 5.6 Absolute Lymphs (auto) 1.36 Total Counted Not Reportable Eos Smear Total Cells 4 Sodium 140 Potassium 3.9 Chloride 108 H Carbon Dioxide 20.0 L Anion Gap 12 BUN 60 H Creatinine 4.58 H Estim Creat Clear Calc 11.41 Est GFR (MDRD) Af Amer 16 L Est GFR (MDRD) Non-Af 13 L BUN/Creatinine Ratio 13.1 Glucose 95 Calcium 8.5 Medical Necessity - Tobacco Use Smoking Status: Never smoker Tobacco Use: Non-smoker, Chew Assessment/Plan All Active Problems (Last Updated 02/21/18 @ 14:09 by Gustavo Sauer DO) HEIDI (acute kidney injury) (Acute) UTI (urinary tract infection) (Acute) Urinary retention due to benign prostatic hyperplasia (Acute) HEIDI. baseline creatinine as of 6 years ago was 1.1. now 6.4 Likely obstructive. garcía placed with immediate return of 1 L. still draining a large amount of blood tinged urine. creatinine is better. Anemia. Hb as outpatient was low. now has hematuria. Hb stable Obstructive nephropathy. s/p garcía placement. reviewed urology note. CT abdomen reviewed, still had moderate hydronephrosis on CT. for TURP today of note he lost about 70 lbs within last couple years, also had poor appetite.
--- NOTE | 2018-02-24 14:45 | PROS_PTH ---
PATIENT: DANISHA MOTA LOC: [facility] U#:[id number] AGE/SX: 82/M ROOM: [facility]310 RE02/22/[address]: Dr. Bart Perry MD : [id number] BED: 1 DIS: 02/26/2018 SPEC #: [id number] RECD: 02/27/18 09:19 STATUS: VICENTE RE #: [id number] DINO: 02/24/18 14:[address]: Philip Knox DEPT: SURGICAL PATHOLOGY RECD BY: Justo Shepherd ENTERED: 02/27/18 12:04 SP TYPE: TURP OTHR DR: DO Dr. Flaquito Willoughby MD Dr. Prakash Chand, MD Dr. Victor Velasquez, MD Tissues: A - Urinary bladder, NOS B - Prostate, NOS Procedures: Surgery Specimen Level IV Comments: @ Ordering doctor for SUIV edited from to @ by JANENE at 02/27/18 1209 @ Submitting doctor edited from to @ by JANENE at 02/27/18 1205 HEADER OPERATION: Cysto, TURP, bladder resection, Olympus PRE-OP DIAGNOSIS: Acute renal injury with BPH TISSUE SUBMITTED: A - Bladder resection, B - Prostate chips MICROSCOPIC DIAGNOSIS A. Bladder resection: Urothelial mucosa with underlying detrusor muscle with acute and chronic inflammation, vascular congestion, thrombosis and reactive changes. See comment. B. Prostate chips, TUR: Benign prostatic hyperplasia, glandular and stromal type. Acute and chronic inflammation. SJ:mark 02/28/18 COMMENT A. Inflammatory cells also show increased number of eosinophils. Case has been reviewed in consultation with Dr. Ahuja who concurs with the above diagnosis. IDC:AM MICROSCOPIC DESCRIPTION Slides are reviewed. GROSS DESCRIPTION A - Received in fixative is one container labeled with the patient's name and designated bladder resection. The specimen consists of a piece of gonzalez, hemorrhagic soft tissue measuring 1 x 0.9 x 0.3 cm. The specimen is totally submitted in one cassette. B - Received is one container labeled with the patient's name and designated prostate chips. The specimen consists of multiple irregular fragments of pink-gonzalez, rubbery, soft tissue that in aggregate weigh 19.7 gm and measure in aggregate 8 x 6 x 3 cm. [employer] tissue is submitted in 12 cassettes. / SJ:rg 02/27/18 TC:5 CPT: 09872 x2
--- NOTE | 2018-02-24 16:29 | PCM.OPRPT ---
Problem List (1) Urinary retention due to benign prostatic hyperplasia Status: Acute Report of Operation Date of Procedure: 02/24/18 Pre-Operative Diagnosis: BPH with retention and a large bladder mass and prostate obstruction Post-Operative Diagnosis: Same Surgery/Procedure Performed:: Transurethral resection of the prostate, and transurethral resection of bladder, large. Description of Surgical Findings:: 82-year-old male presented to the emergency room in the with retention of urine and blood in the urine CAT scan was done demonstrated a large mass within the bladder. The mass appeared to be coming from the prostate but also from the bladder, causing obstruction and hydronephrosis and retention of urine and acute renal failure, has been admitted to the hospital stabilized and now he was taken back to the operating room for a trans-resection of the prostate and also bladder. 82-year-old male taken back to the operating room at the smooth induction of general anesthesia, the penis testicles were prepped and draped in usual sterile fashion, went into the bladder with a 26 [place] flow continuous resectoscope, first and notices a very large protruding prosthetic obstruction coming from his prostate growing into the bladder but also the bladder was very thickened and very inflamed. So I took the resectoscope and did a resection of the posterior aspect of the bladder to get a specimen this was handed off separately as a bladder specimen. After this was done then I switched over to the Ellik and the continuous flow with the Olympus and I started resecting the prostate resected the large median lobe and then resected the lateral lobe and the right side working all the way up to the dome and then resect the lateral lobe and the left side worked up to the dome and then at the top of the bladder there was a very large mass protruding from the prostate into the bladder appeared to be BPH this was also resected all the way down will take resected this protruding tissue that I resected back to the Mathieu is more protruding tissue coming to the right side to the left side eventually and opened up the channel nicely so all the obstructing tissue was resected, all this tissue was elected out large couple of tissue was handed off as a specimen I did obtain hemostasis make sure all the prostate chips were removed out of the bladder, placed a 3 way Santiago into the bladder with continuous irrigation the urine was nice and clear and the patient anesthetic is currently being reversed. That will complete the resection of the prostate and also transurethral resection of the bladder. Type of Anesthesia:: General Drains: 3 way - Admit VTE Documentation VTE Present on Admission: No VTE Mechan Device Prophylaxis: SCD's VTE Pharm Prophylaxis ordered?: No Reason prophylaxis not ordered:: Treatment Not Indicated
[2018-02-24] MEDS: 0.9% Normal Saline 1,000 ML 75 ML IV (18:37)
[2018-02-24] MEDS: Tamsulosin HCl 0.4 MG Capsule PO (20:01)
[2018-02-24] MEDS: Docusate Sodium 100 MG Capsule PO (22:33)
[2018-02-25] MEDS: 0.9% Normal Saline 1,000 ML 75 ML IV ×2 (00:11→13:54)
[2018-02-25 02:11] VITALS: BP 107/59; PULSE 76; RESP 16; TEMP 36.8; O2SAT 95
--- NOTE | 2018-02-25 07:01 | PCM.PROGNOTE ---
Patient Problems: Active and Suspected Problems (Last Updated 02/21/18 @ 14:09 by Gustavo Sauer DO) HEIDI (acute kidney injury) (Acute) UTI (urinary tract infection) (Acute) Urinary retention due to benign prostatic hyperplasia (Acute) Subjective: Status post TURP, the urine is fairly clear continue with slow CBI for now no complaints. - Physical Exam General: Alert, Oriented x3, Cooperative HEENT: Atraumatic, PERRLA, EOMI, Normocephalic Neck: Supple, No JVD, Negative Carotid Bruits Lungs: Clear to auscultation, Normal air movement Cardiovascular: Regular rate, No murmurs Abdomen: Bowel Sounds Present, Soft, Non Tender Extremities: No edema, Capillary Refill Less than 3 Seconds Skin: No rashes, No breakdown Musculoskeletal: No Tenderness to Palpation of Joints or Extremities Neurological: Cranial nerves II-XII grossly intact Psych/Mental Status: Normal Affect, Appropriate Vital Signs Temp Pulse Resp BP Pulse Ox 98.2 F 76 16 107/59 L 95 02/25/18 02:11 02/25/18 02:11 02/25/18 02:11 02/25/18 02:11 02/25/18 02:11 Oxygen Delivery Method Room Air Weight: 69.2 kg Body Mass Index (BMI) 24.6 Intake and Output for Last 24 Hours 02/23/18 02/24/18 02/25/18 23:59 23:59 23:59 Intake Total 50 / 50 1475 / 1475 1371 / 1371 Output Total 2200 / 2200 7475 / 7475 700 / 700 Balance -2150 / -2150 -6000 / -6000 671 / 671 Microbiology Past 72 Hours 02/21/18 13:25 Urine Culture - Final Urine Catheter - Santiago Staphylococcus epidermidis Laboratory Tests Past 24 Hrs 02/21/18 13:25 Eos Smear Total Cells 4 Medical Necessity - Tobacco Use Smoking Status: Never smoker Tobacco Use: Non-smoker, Chew Assessment/Plan All Active Problems (Last Updated 02/21/18 @ 14:09 by Gustavo Sauer DO) HEIDI (acute kidney injury) (Acute) UTI (urinary tract infection) (Acute) Urinary retention due to benign prostatic hyperplasia (Acute) Status post TURP clinically doing well continue with CBI can slow it down.
[2018-02-25 08:04] LABS: Absolute Neutrophil Count 5.7 X10^3/uL (2.0-7.7); Basophil# 0.02 X10^3/uL; Basophil% 0.3 % (0-1); Eosinophil# 0.27 X10^3/uL; Eosinophils% 3.6 % (0-5); Hematocrit 26.7 % (40-54); Hemoglobin 8.4 g/dl (13.0-16.5); Lymphocyte % 10.6 % (19-41); Mean Corp Hgb Conc 31.5 g/gl (32-36); Mean Corpuscular Hgb 29.1 pg (27.0-32.0); Mean Corpuscular Volume 92.4 fL (80-94); Monocyte# 0.75 X10^3/uL; Monocyte% 9.9 % (0-10); Neutrophil # 5.71 X10^3/uL (2.7-7.7); Neutrophil % 75.3 % (47-70); Platelet Count 177 K/mm3 (150-450); RBC Distribution Width CV 13.6 % (11.6-14.6); RBC Distribution Width SD 44.4 fl (35.1-43.9); Red Blood Count 2.89 M/mm3 (4.6-6.2); White Blood Count 7.6 K/mm3 (4.4-11.0)
[2018-02-25 08:16] LABS: BUN 53 mg/dL (7-18); Creatinine, Serum 4.05 mg/dL (0.70-1.30); EST Glomerular Filtration Rate 15 mL/min (>60); Estimated Creatinine Clearance 12.91 ml/min; Glucose 106 mg/dL (74-106)
[2018-02-25 08:17] LABS: Anion Gap 13 (5-15); BUN/Creat Ratio 13.1 RATIO (10-20); Calcium,Total 7.8 mg/dL (8.5-10.1); Chloride 108 mmol/L (98-107); Est Glom Filt Rate - Afr Amer 18 mL/min (>60); Potassium 4.2 mmol/L (3.5-5.1); Sodium Level 142 mmol/L (136-145)
[2018-02-25 08:26] LABS: POSITIVE COUNT NO; POSITIVE DIFFERENTIAL NO; POSITIVE MORPHOLOGY NO
[2018-02-25 08:51] VITALS: BP 95/64; PULSE 77; RESP 18; TEMP 37; O2SAT 98
[2018-02-25] MEDS: Ceftriaxone 1 GM/50 ML BAG IV (09:04)
[2018-02-25] MEDS: Docusate Sodium 100 MG Capsule PO ×2 (09:04→22:04)
[2018-02-25] MEDS: Pantoprazole Sodium 40 MG Tablet PO (09:04)
--- NOTE | 2018-02-25 12:09 | PCM.PN.HOSP ---
Patient Problems: Active and Suspected Problems (Last Updated 02/21/18 @ 14:09 by Gustavo Sauer DO) HEIDI (acute kidney injury) (Acute) UTI (urinary tract infection) (Acute) Urinary retention due to benign prostatic hyperplasia (Acute) Subjective: Patient had cystoscopy and TURP with tissue biopsy was done. Currently on triple lumen catheter with continuous bladder irrigation. Urine shows slight hematuria otherwise clear. No fever last night. Vitals/I&O's: Vital Signs Temp Pulse Resp BP Pulse Ox 98.6 F 77 18 95/64 98 02/25/18 08:51 02/25/18 08:51 02/25/18 08:51 02/25/18 08:51 02/25/18 08:51 Oxygen Delivery Method Room Air Weight: 152 lb 8.958 oz Body Mass Index (BMI) 24.6 Intake and Output for Last 24 Hours 02/23/18 02/24/18 02/25/18 23:59 23:59 23:59 Intake Total 50 / 50 1475 / 1475 1371 / 1371 Output Total 2200 / 2200 7475 / 7475 1400 / 1400 Balance -2150 / -2150 -6000 / -6000 -29 / -29 General: Alert, Oriented x3, Cooperative HEENT: Atraumatic, PERRLA, EOMI, Normocephalic Neck: Supple, No JVD, Negative Carotid Bruits Lungs: Clear to auscultation, Normal air movement, No rhonchi, No wheeze Cardiovascular: Regular rate, Regular Rhythm, Normal S1, Normal S2, No murmurs Abdomen: Bowel Sounds Present, Soft, Non Tender, Non-Distended, - - On CBI. Slight hematuria Extremities: No edema, Capillary Refill Less than 3 Seconds Skin: No rashes, No breakdown Musculoskeletal: No Tenderness to Palpation of Joints or Extremities, Arthritic Changes Neurological: Cranial nerves II-XII grossly intact Psych/Mental Status: Normal Affect, Appropriate Microbiology Past 72 Hours 02/21/18 13:25 Urine Catheter - Santiago Urine Culture - Final Staphylococcus epidermidis Laboratory Results 02/25/18 07:05: WBC 7.6, RBC 2.89 L, Hgb 8.4 L, Hct 26.7 L, MCV 92.4, MCH 29.1, MCHC 31.5 L, RDW 13.6, RDW Differential 44.4 H, Plt Count 177, MPV 10.0, Immature Gran % (Auto) 0.300, Neut % (Auto) 75.3 H, Lymph % (Auto) 10.6 L, [place] % (Auto) 9.9, Eos % (Auto) 3.6, Baso % (Auto) 0.3, Absolute Neuts (auto) 5.7, Absolute Lymphs (auto) 0.80 L, Total Counted Not Reportable 02/25/18 07:05: Sodium 142, Potassium 4.2, Chloride 108 H, Carbon Dioxide 21.0, Anion Gap 13, BUN 53 H, Creatinine 4.05 H, Estim Creat Clear Calc 12.91, Est GFR (MDRD) Af Amer 18 L, Est GFR (MDRD) Non-Af 15 L, BUN/Creatinine Ratio 13.1, Glucose 106, Calcium 7.8 L Current Medications Acetaminophen (Tylenol) 650 mg PO Q6H PRN PRN PRN Reason: Mild Pain (1-3)/Temp > 100.7 F Al Hydroxide/Mg Hydroxide (Mylanta Ii) 30 ml PO Q4H PRN PRN PRN Reason: Heartburn Docusate Sodium (Colace) 100 mg PO BID [facility] Last Admin: 02/25/18 09:04 Dose: 100 mg Ceftriaxone Sodium (Rocephin) 1 gm in 50 mls @ 100 mls/hr IV Q24 [facility] Last Admin: 02/25/18 09:04 Dose: 100 mls/hr Sodium Chloride () 250 mls @ 15 mls/hr IV .[id number] PRN PRN Reason: SALINE FLUSH Sodium Chloride () 1,000 mls @ 75 mls/hr IV .[id number] [facility] Last Admin: 02/25/18 00:11 Dose: 75 mls/hr Magnesium Hydroxide (Milk Of Magnesia) 30 ml PO DAILY PRN PRN PRN Reason: Constipation Nutritional Formula (Lactose Free) (Ensure Enlive) 120 ml PO 4X/DAY [facility] Last Admin: 02/25/18 09:04 Dose: Not Given Ondansetron HCl (Zofran) 4 mg IV Q8H PRN PRN PRN Reason: NAUSEA Oxycodone HCl (Oxyir) 5 mg PO Q4H PRN PRN PRN Reason: Pain Pantoprazole Sodium (Protonix) 40 mg PO DAILY [facility] Last Admin: 02/25/18 09:04 Dose: 40 mg Sodium Chloride () 5 - 30 ml IV UD PRN PRN Reason: SALINE FLUSH Last Admin: 02/24/18 10:52 Dose: 10 ml Tamsulosin HCl (Flomax) 0.4 mg PO DAILY@1730 [facility] Last Admin: 02/24/18 20:01 Dose: 0.4 mg Medical Necessity - Tobacco Use Smoking Status: Never smoker Tobacco Use: Non-smoker, Chew Assessment/Plan All Active Problems (Last Updated 02/21/18 @ 14:09 by Gustavo Sauer DO) HEIDI (acute kidney injury) (Acute) UTI (urinary tract infection) (Acute) Urinary retention due to benign prostatic hyperplasia (Acute) This 82-year-old gentleman who has not seen a physician for about 6 years was admitted with acute kidney injury secondary to bladder outlet obstruction with bilateral hydronephrosis and hydroureter admitting creatinine was 6. 3 3, BUN 66, bicarb 19, anion gap 12. UA positive of WBC 25-50 cells, 2+ bacteria, LE positive but nitrite negative. Urinary sodium 62 with urine creatinine 59.5. Patient also gave history of weight loss of about 70 pounds in last 2-3 years. 1. Acute kidney injury most probably secondary to BPH/bladder outlet obstruction with bilateral hydronephrosis and hydroureter, dilatation of urinary tract up to UV junction: Patient has Santiago catheter and had immediate 1 L of urine drained. Renal bladder ultrasound shows bilateral hydronephrosis down to the UV junction. Bladder wall was diffusely thickened and trabeculated. Similar finding in CT abdomen. No demonstrated source of distal urinary tract. On IV fluid. Flomax. Pairer Substandard and urologist consult reviewed. Discussed with Dr. Knox and he had advised to continue Santiago drainage for his kidney function to return to baseline and probably plan for TURP on Tuesday. BPH with retention and large bladder mass with prostate obstruction: Patient had TURP and transurethral resection of bladder mass: Postop day 1. Follow-up the biopsy. Incentive spirometry. Bronchodilator as needed. EKG shows normal sinus rhythm with PACs at 92 bpm. Chest x-ray report is as lungs hyperexpanded. Coarsened interstitial markings suggestive of mild chronic fibrosis. No gross focal infiltrate, effusion or acute disease. Patient said he has never been a smoker. Patient is moderate perioperative risk for cystoscopy and possible TURP. The [place] perioperative cardiovascular risk is 0.14% 2. UTI: Continue ceftriaxone. UA suggestive of UTI. Based on urinalysis findings Continue with ceftriaxone that was started in the emergency room Urine culture shows staph epidermidis suggestive of contamination. But clinically, continue antibiotic in view of positive UA with obstructive uropathy 3. Mild acute on chronic anemia mostly secondary to mild hematuria on baseline chronic anemia: Monitor hemoglobin. Currently H&H 9.7/30.1. CBC tomorrow a.m. 4. DVT prophylaxis: Bilateral SCDs. Discontinue heparin. 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 Nature of surgery and operative findings explained to the patient. Microbiology Past 72 Hours 02/21/18 13:25 Urine Catheter - Santiago Urine Culture - Final Staphylococcus epidermidis Laboratory Results 02/21/18 13:25: Eos Smear Total Cells 4 02/24/18 05:45: WBC 8.2, RBC 3.25 L, Hgb 9.5 L, Hct 29.1 L, MCV 89.5, MCH 29.2, MCHC 32.6, RDW 13.3, RDW Differential 41.9, Plt Count 193, MPV 9.7, Immature Gran % (Auto) 0.400, Neut % (Auto) 68.1, Lymph % (Auto) 16.7 L, [place] % (Auto) 9.8, Eos % (Auto) 4.8, Baso % (Auto) 0.2, Absolute Neuts (auto) 5.6, Absolute Lymphs (auto) 1.36, Total Counted Not Reportable 02/24/18 05:45: Sodium 140, Potassium 3.9, Chloride 108 H, Carbon Dioxide 20.0 L, Anion Gap 12, BUN 60 H, Creatinine 4.58 H, Estim Creat Clear Calc 11.41, Est GFR (MDRD) Af Amer 16 L, Est GFR (MDRD) Non-Af 13 L, BUN/Creatinine Ratio 13.1, Glucose 95, Calcium 8.5 Clinical Impression(s) from Imaging Studies Renal Ultrasound 02/21/18 14:30 IMPRESSION: 1. Bilateral hydronephrosis down to the ureterovesical junctions. Bilateral ureteral jets were not visualized. 2. The bladder wall is diffusely thickened and trabeculated. A Santiago catheter is incidentally noted. Abdomen/Pelvis CT 02/22/18 11:55 IMPRESSION: 1. Bilateral hydroureteronephrosis down to the ureterovesical junctions again noted. Diffusely thickened and trabeculated urinary bladder wall also again seen. There is no other demonstrated source of distal urinary tract obstruction. A Santiago catheter and small volume gas are seen within the bladder lumen. 2. Atherosclerotic calcifications of the coronary arteries, thoracoabdominal aorta, and proximal iliac arteries. There is 2.6 cm fusiform ectasia of the mid to distal infrarenal aorta and 16 mm diameter ectasia of the common iliac arteries. 3. 1 cm periampullary duodenal diverticulum. Colonic diverticulosis also present without acute diverticulitis. No sign of bowel obstruction. The appendix is normal. 4. Small midline defect of the high anterior abdominal wall abscess for a 4.5 cm sessile herniation of fat. 5. 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 Code Visit Inpatient E&M: 70618 Subs Hosp L3
--- NOTE | 2018-02-25 12:15 | PN_ITS ---
Patient Problems: Active and Suspected Problems (Last Updated 02/21/18 @ 14:09 by Gustavo Sauer DO) HEIDI (acute kidney injury) (Acute) UTI (urinary tract infection) (Acute) Urinary retention due to benign prostatic hyperplasia (Acute) Subjective: Patient had cystoscopy and TURP with tissue biopsy was done. Currently on triple lumen catheter with continuous bladder irrigation. Urine shows slight hematuria otherwise clear. No fever last night. Vitals/I&O's: Vital Signs Temp Pulse Resp BP Pulse Ox 98.6 F 77 18 95/64 98 02/25/18 08:51 02/25/18 08:51 02/25/18 08:51 02/25/18 08:51 02/25/18 08:51 Oxygen Delivery Method Room Air Weight: 152 lb 8.958 oz Body Mass Index (BMI) 24.6 Intake and Output for Last 24 Hours 02/23/18 02/24/18 02/25/18 23:59 23:59 23:59 Intake Total 50 / 50 1475 / 1475 1371 / 1371 Output Total 2200 / 2200 7475 / 7475 1400 / 1400 Balance -2150 / -2150 -6000 / -6000 -29 / -29 General: Alert, Oriented x3, Cooperative HEENT: Atraumatic, PERRLA, EOMI, Normocephalic Neck: Supple, No JVD, Negative Carotid Bruits Lungs: Clear to auscultation, Normal air movement, No rhonchi, No wheeze Cardiovascular: Regular rate, Regular Rhythm, Normal S1, Normal S2, No murmurs Abdomen: Bowel Sounds Present, Soft, Non Tender, Non-Distended, - - On CBI. Slight hematuria Extremities: No edema, Capillary Refill Less than 3 Seconds Skin: No rashes, No breakdown Musculoskeletal: No Tenderness to Palpation of Joints or Extremities, Arthritic Changes Neurological: Cranial nerves II-XII grossly intact Psych/Mental Status: Normal Affect, Appropriate Microbiology Past 72 Hours 02/21/18 13:25 Urine Catheter - Santiago Urine Culture - Final Staphylococcus epidermidis Laboratory Results 02/25/18 07:05: WBC 7.6, RBC 2.89 L, Hgb 8.4 L, Hct 26.7 L, MCV 92.4, MCH 29.1, MCHC 31.5 L, RDW 13.6, RDW Differential 44.4 H, Plt Count 177, MPV 10.0, Immature Gran % (Auto) 0.300, Neut % (Auto) 75.3 H, Lymph % (Auto) 10.6 L, [place] % (Auto) 9.9, Eos % (Auto) 3.6, Baso % (Auto) 0.3, Absolute Neuts (auto) 5.7, Absolute Lymphs (auto) 0.80 L, Total Counted Not Reportable 02/25/18 07:05: Sodium 142, Potassium 4.2, Chloride 108 H, Carbon Dioxide 21.0, Anion Gap 13, BUN 53 H, Creatinine 4.05 H, Estim Creat Clear Calc 12.91, Est GFR (MDRD) Af Amer 18 L, Est GFR (MDRD) Non-Af 15 L, BUN/Creatinine Ratio 13.1, Glucose 106, Calcium 7.8 L Current Medications Acetaminophen (Tylenol) 650 mg PO Q6H PRN PRN PRN Reason: Mild Pain (1-3)/Temp > 100.7 F Al Hydroxide/Mg Hydroxide (Mylanta Ii) 30 ml PO Q4H PRN PRN PRN Reason: Heartburn Docusate Sodium (Colace) 100 mg PO BID [facility] Last Admin: 02/25/18 09:04 Dose: 100 mg Ceftriaxone Sodium (Rocephin) 1 gm in 50 mls @ 100 mls/hr IV Q24 [facility] Last Admin: 02/25/18 09:04 Dose: 100 mls/hr Sodium Chloride () 250 mls @ 15 mls/hr IV .[id number] PRN PRN Reason: SALINE FLUSH Sodium Chloride () 1,000 mls @ 75 mls/hr IV .[id number] [facility] Last Admin: 02/25/18 00:11 Dose: 75 mls/hr Magnesium Hydroxide (Milk Of Magnesia) 30 ml PO DAILY PRN PRN PRN Reason: Constipation Nutritional Formula (Lactose Free) (Ensure Enlive) 120 ml PO 4X/DAY [facility] Last Admin: 02/25/18 09:04 Dose: Not Given Ondansetron HCl (Zofran) 4 mg IV Q8H PRN PRN PRN Reason: NAUSEA Oxycodone HCl (Oxyir) 5 mg PO Q4H PRN PRN PRN Reason: Pain Pantoprazole Sodium (Protonix) 40 mg PO DAILY [facility] Last Admin: 02/25/18 09:04 Dose: 40 mg Sodium Chloride () 5 - 30 ml IV UD PRN PRN Reason: SALINE FLUSH Last Admin: 02/24/18 10:52 Dose: 10 ml Tamsulosin HCl (Flomax) 0.4 mg PO DAILY@1730 [facility] Last Admin: 02/24/18 20:01 Dose: 0.4 mg Medical Necessity - Tobacco Use Smoking Status: Never smoker Tobacco Use: Non-smoker, Chew Assessment/Plan All Active Problems (Last Updated 02/21/18 @ 14:09 by Gustavo Sauer DO) HEIDI (acute kidney injury) (Acute) UTI (urinary tract infection) (Acute) Urinary retention due to benign prostatic hyperplasia (Acute) This 82-year-old gentleman who has not seen a physician for about 6 years was admitted with acute kidney injury secondary to bladder outlet obstruction with bilateral hydronephrosis and hydroureter admitting creatinine was 6. 3 3, BUN 66, bicarb 19, anion gap 12. UA positive of WBC 25-50 cells, 2+ bacteria, LE positive but nitrite negative. Urinary sodium 62 with urine creatinine 59.5. Patient also gave history of weight loss of about 70 pounds in last 2-3 years. 1. Acute kidney injury most probably secondary to BPH/bladder outlet obstruction with bilateral hydronephrosis and hydroureter, dilatation of urinary tract up to UV junction: Patient has Santiago catheter and had immediate 1 L of urine drained. Renal bladder ultrasound shows bilateral hydronephrosis down to the UV junction. Bladder wall was diffusely thickened and trabeculated. Similar finding in CT abdomen. No demonstrated source of distal urinary tract. On IV fluid. Flomax. 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 Discussed with Dr. Knox and he had advised to continue Santiago drainage for his kidney function to return to baseline and probably plan for TURP on Tuesday. BPH with retention and large bladder mass with prostate obstruction: Patient had TURP and transurethral resection of bladder mass: Postop day 1. Follow-up the biopsy. Incentive spirometry. Bronchodilator as needed. EKG shows normal sinus rhythm with PACs at 92 bpm. Chest x-ray report is as lungs hyperexpanded. Coarsened interstitial markings suggestive of mild chronic fibrosis. No gross focal infiltrate, effusion or acute disease. Patient said he has never been a smoker. Patient is moderate perioperative risk for cystoscopy and possible TURP. The Villarreal perioperative cardiovascular risk is 0.14% 2. UTI: Continue ceftriaxone. UA suggestive of UTI. * Based on urinalysis findings * Continue with ceftriaxone that was started in the emergency room * Urine culture shows staph epidermidis suggestive of contamination. But clinically, continue antibiotic in view of positive UA with obstructive uropathy 3. Mild acute on chronic anemia mostly secondary to mild hematuria on baseline chronic anemia: Monitor hemoglobin. Currently H&H 9.7/30.1. CBC tomorrow a.m. 4. DVT prophylaxis: Bilateral SCDs. Discontinue heparin. 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 Nature of surgery and operative findings explained to the patient. Microbiology Past 72 Hours 02/21/18 13:25 Urine Catheter - Santiago Urine Culture - Final Staphylococcus epidermidis Laboratory Results 02/21/18 13:25: Eos Smear Total Cells 4 02/24/18 05:45: WBC 8.2, RBC 3.25 L, Hgb 9.5 L, Hct 29.1 L, MCV 89.5, MCH 29.2, MCHC 32.6, RDW 13.3, RDW Differential 41.9, Plt Count 193, MPV 9.7, Immature Gran % (Auto) 0.400, Neut % (Auto) 68.1, Lymph % (Auto) 16.7 L, [place] % (Auto) 9.8, Eos % (Auto) 4.8, Baso % (Auto) 0.2, Absolute Neuts (auto) 5.6, Absolute Lymphs (auto) 1.36, Total Counted Not Reportable 02/24/18 05:45: Sodium 140, Potassium 3.9, Chloride 108 H, Carbon Dioxide 20.0 L , Anion Gap 12, BUN 60 H, Creatinine 4.58 H, Estim Creat Clear Calc 11.41, Est GFR (MDRD) Af Amer 16 L, Est GFR (MDRD) Non-Af 13 L, BUN/Creatinine Ratio 13.1, Glucose 95, Calcium 8.5 Clinical Impression(s) from Imaging Studies Renal Ultrasound 02/21/18 14:30 IMPRESSION: 1. Bilateral hydronephrosis down to the ureterovesical junctions. Bilateral ureteral jets were not visualized. 2. The bladder wall is diffusely thickened and trabeculated. A Santiago catheter is incidentally noted. Abdomen/Pelvis CT 02/22/18 11:55 IMPRESSION: 1. Bilateral hydroureteronephrosis down to the ureterovesical junctions again noted. Diffusely thickened and trabeculated urinary bladder wall also again seen. There is no other demonstrated source of distal urinary tract obstruction. A Santiago catheter and small volume gas are seen within the bladder lumen. 2. Atherosclerotic calcifications of the coronary arteries, thoracoabdominal aorta, and proximal iliac arteries. There is 2.6 cm fusiform ectasia of the mid to distal infrarenal aorta and 16 mm diameter ectasia of the common iliac arteries. 3. 1 cm periampullary duodenal diverticulum. Colonic diverticulosis also present without acute diverticulitis. No sign of bowel obstruction. The appendix is normal. 4. Small midline defect of the high anterior abdominal wall abscess for a 4.5 cm sessile herniation of fat. 5. 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 Code Visit Inpatient E&M: 57278 Subs Hosp L3
[2018-02-25 15:53] VITALS: BP 117/69; PULSE 89; RESP 18; TEMP 37.1; O2SAT 98
[2018-02-25] MEDS: Tamsulosin HCl 0.4 MG Capsule PO (17:38)
[2018-02-25 20:20] LABS: Hematocrit 26.6 % (40-54); Hemoglobin 8.5 g/dl (13.0-16.5)
[2018-02-25 21:59] VITALS: BP 98/63; PULSE 76; RESP 18; TEMP 37; O2SAT 98
[2018-02-26 02:19] VITALS: BP 118/71; PULSE 76; RESP 18; TEMP 37.1; O2SAT 97
[2018-02-26] MEDS: 0.9% Normal Saline 1,000 ML 75 ML IV (02:24)
[2018-02-26 06:46] LABS: Absolute Lymphocyte Count 1.17 X10^3/ul (0.83-4.51); Absolute Neutrophil Count 4.9 X10^3/uL (2.0-7.7); Basophil# 0.01 X10^3/uL; Basophil% 0.1 % (0-1); Eosinophil# 0.31 X10^3/uL; Eosinophils% 4.3 % (0-5); Hematocrit 24.6 % (40-54); Hemoglobin 7.9 g/dl (13.0-16.5); Lymphocyte # 1.17 X10^3/ul (4.0); Lymphocyte % 16.2 % (19-41); Mean Corp Hgb Conc 32.1 g/gl (32-36); Mean Corpuscular Hgb 29.6 pg (27.0-32.0); Mean Corpuscular Volume 92.1 fL (80-94); Mean Platelet Vol. 9.9 fl (6.2-12.0); Monocyte# 0.82 X10^3/uL; Monocyte% 11.3 % (0-10); Neutrophil % 67.7 % (47-70); Platelet Count 165 K/mm3 (150-450); RBC Distribution Width CV 13.4 % (11.6-14.6); RBC Distribution Width SD 43.4 fl (35.1-43.9); Red Blood Count 2.67 M/mm3 (4.6-6.2); White Blood Count 7.2 K/mm3 (4.4-11.0)
[2018-02-26 06:58] LABS: POSITIVE COUNT NO; POSITIVE DIFFERENTIAL NO; POSITIVE MORPHOLOGY NO
[2018-02-26 07:03] LABS: Anion Gap 10 (5-15); BUN 49 mg/dL (7-18); BUN/Creat Ratio 13.1 RATIO (10-20); Calcium,Total 7.8 mg/dL (8.5-10.1); Chloride 109 mmol/L (98-107); Creatinine, Serum 3.73 mg/dL (0.70-1.30); EST Glomerular Filtration Rate 17 mL/min (>60); Est Glom Filt Rate - Afr Amer 20 mL/min (>60); Estimated Creatinine Clearance 14.02 ml/min; Glucose 87 mg/dL (74-106); Potassium 3.8 mmol/L (3.5-5.1); Sodium Level 141 mmol/L (136-145)
[2018-02-26 09:03] VITALS: BP 130/85; PULSE 84; RESP 18; TEMP 36.7; O2SAT 98
[2018-02-26] MEDS: Ceftriaxone 1 GM/50 ML BAG IV (10:20)
[2018-02-26] MEDS: Docusate Sodium 100 MG Capsule PO (10:22)
[2018-02-26] MEDS: Pantoprazole Sodium 40 MG Tablet PO (10:22)
[2018-02-26 13:07] LABS: Hematocrit 26.5 % (40-54); Hemoglobin 8.3 g/dl (13.0-16.5)
--- NOTE | 2018-02-26 13:29 | DCINST_ITS ---
- Discharge Diagnoses Current Active Problems: Current Active and Chronic Problems (Last Updated 02/21/18 @ 14:09 by Gustavo Sauer DO) HEIDI (acute kidney injury) (Acute) UTI (urinary tract infection) (Acute) Urinary retention due to benign prostatic hyperplasia (Acute) You will use the following diet at home:: Cardiac Discharge Activity: May Not Drive Weight Bearing Status: Weight bearing as tolerated Call your doctor if you observe: Fever of 101 or Higher, Inability to have a bowel movement, Shortness of breath, - - Hematuria are unable to urinate Additional Instructions: Follow with PCP if patient has persistently hypertension, needs to be started on antihypertensive medication Allergies/Adverse Reactions: Allergies topic sulfate eye wash Allergy (Uncoded 02/21/18 14:54) Swelling Medications to take at Discharge Acetaminophen [Tylenol Tablet] 500 mg PO Q6H PRN PRN tablet 02/26/18 Cefadroxil [Duricef] 500 mg PO X1 #1 capsule 02/26/18 Docusate Sodium [Colace] 200 mg PO BID PRN PRN capsule 02/26/18 Ferrous Sulfate [Iron] 325 mg PO TID #90 tablet 02/26/18 Tamsulosin HCl [Flomax] 0.4 mg PO DAILY@1730 #30 capsule 02/26/18 The following prescriptions were given: Cefadroxil [Duricef] 500 mg PO X1 #1 capsule Tamsulosin HCl [Flomax] 0.4 mg PO DAILY@1730 #30 capsule Ferrous Sulfate [Iron] 325 mg PO TID #90 tablet Primary Care Physician: Mati Cody MD [Primary Care Provider] - Please follow up with your Primary Care Physician in: In 1-2 weeks Test Results: Test results from this visit will be discussed in further detail at your follow- up appointment, if applicable. Please Follow Up With: Philip Knox MD When: in 2 weeks after TURP Please Follow Up With: Flaquito Santos MD When: IN 2 WEEKS for HEIDI
--- NOTE | 2018-02-26 13:29 | PCM.DC.SUM ---
Discharge Date and Diagnosis - Problem List Patient Problems: Active and Suspected Problems (Last Updated 02/21/18 @ 14:09 by Gustavo Sauer DO) HEIDI (acute kidney injury) (Acute) UTI (urinary tract infection) (Acute) Urinary retention due to benign prostatic hyperplasia (Acute) Date of Admission: 02/21/18 Date of Discharge: 02/26/18 - Primary Discharge Diagnosis Active and Suspected Problems (Last Updated 02/21/18 @ 14:09 by Gustavo Sauer DO) HEIDI (acute kidney injury) (Acute) UTI (urinary tract infection) (Acute) Urinary retention due to benign prostatic hyperplasia (Acute) 1. Acute kidney injury most probably secondary to BPH/bladder outlet obstruction with bilateral hydronephrosis and hydroureter, dilatation of urinary tract up to UV junction: BPH with retention and large bladder mass with prostate obstruction: 2. Acute anemia secondary to hematuria and TURP, postoperative blood loss: 3. UTI cystitis secondary to bladder outlet obstruction Hospital Course and Treatment Summary of Care Provided: [] This 82-year-old gentleman who has not seen a physician for about 6 years was admitted with acute kidney injury secondary to bladder outlet obstruction with bilateral hydronephrosis and hydroureter admitting creatinine was 6. 3 3, BUN 66, bicarb 19, anion gap 12. UA positive of WBC 25-50 cells, 2+ bacteria, LE positive but nitrite negative. Urinary sodium 62 with urine creatinine 59.5. Patient also gave history of weight loss of about 70 pounds in last 2-3 years. Patient was seen and examined today. Earlier triple-lumen Santiago catheter was removed by Dr. Knox. Patient passed urine. No fever. General: Alert, Oriented x3, Cooperative HEENT: Atraumatic, PERRLA, EOMI, Normocephalic Neck: Supple, No JVD, Negative Carotid Bruits Lungs: Clear to auscultation, Normal air movement, No rhonchi, No wheeze Cardiovascular: Regular rate, Regular Rhythm, Normal S1, Normal S2, No murmurs Abdomen: Bowel Sounds Present, Soft, Non Tender, Non-Distended, - - On CBI. Slight hematuria Extremities: No edema, Capillary Refill Less than 3 Seconds Skin: No rashes, No breakdown Musculoskeletal: No Tenderness to Palpation of Joints or Extremities, Arthritic Changes Neurological: Cranial nerves II-XII grossly intact Psych/Mental Status: Normal Affect, Appropriate 1. Acute kidney injury most probably secondary to BPH/bladder outlet obstruction with bilateral hydronephrosis and hydroureter, dilatation of urinary tract up to UV junction: Patient has Santiago catheter and had immediate 1 L of urine drained. Renal bladder ultrasound shows bilateral hydronephrosis down to the UV junction. Bladder wall was diffusely thickened and trabeculated. Similar finding in CT abdomen. No demonstrated source of distal urinary tract. On IV fluid. Flomax. [employer] and urologist consult reviewed. Discussed with Dr. Knox and he had advised to continue Santiago drainage for his kidney function to return to baseline and probably plan for TURP on Tuesday. BPH with retention and large bladder mass with prostate obstruction: Patient had TURP and transurethral resection of bladder mass: Postop day 1. Follow-up the biopsy. Incentive spirometry. Bronchodilator as needed. EKG shows normal sinus rhythm with PACs at 92 bpm. Chest x-ray report is as lungs hyperexpanded. Coarsened interstitial markings suggestive of mild chronic fibrosis. No gross focal infiltrate, effusion or acute disease. Patient said he has never been a smoker. Patient is moderate perioperative risk for cystoscopy and possible TURP. The Villarreal perioperative cardiovascular risk is 0.14% 2. Acute anemia secondary to hematuria and TURP, postoperative blood loss:Hemoglobin had dropped from 10.1 to 9.5-8.3. IV sucrose was given. Hemoglobin is stabilized. Patient is discharged on ferrous sulfate 325 mg 3 times daily. 3. UTI secondary to bladder outlet obstruction with BPH: Continue ceftriaxone. UA suggestive of UTI. Based on urinalysis findings Continue with ceftriaxone that was started in the emergency room Urine culture shows staph epidermidis suggestive of contamination. But clinically, continue antibiotic in view of positive UA with obstructive uropathy Patient had total of 6 days of IV antibiotics, ceftriaxone. Discharged on 1 dose of cefadroxil 500 mg tomorrow based on creatinine clearance of about 17 mL/min 4. DVT prophylaxis: Bilateral SCDs. Discontinue heparin. Follow-up the bladder mass biopsy and prostatic tissue biopsy after TURP with Dr. Knox in about 1-2 weeks. Follow-up [place] main line assembler, Dr. ANGELA in 2 weeks. Follow with PCP in 1-2 weeks. His blood pressure needs to be monitored and if persistently high, needs antihypertensive medications. Discharge meds reconciliation done. Discharge follow-up with Dr. palacios. Total time spent, exact 35 minutes on discharge meds reconciliation, examination, review of imaging and blood test and discussion with the patient on follow-up instructions. Discharge Activity: May Not Drive Weight Bearing Status: Weight bearing as tolerated Call your doctor if you observe: Fever of 101 or Higher, Inability to have a bowel movement, Shortness of breath, - - Hematuria are unable to urinate Home Medications: Medications to take at Discharge Acetaminophen [Tylenol Tablet] 500 mg PO Q6H PRN PRN tablet 02/26/18 Cefadroxil [Duricef] 500 mg PO X1 #1 capsule 02/26/18 Docusate Sodium [Colace] 200 mg PO BID PRN PRN capsule 02/26/18 Ferrous Sulfate [Iron] 325 mg PO TID #90 tablet 02/26/18 Tamsulosin HCl [Flomax] 0.4 mg PO DAILY@1730 #30 capsule 02/26/18 Following Prescrptions Were Given to Patient: Cefadroxil [Duricef] 500 mg PO X1 #1 capsule Tamsulosin HCl [Flomax] 0.4 mg PO DAILY@1730 #30 capsule Ferrous Sulfate [Iron] 325 mg PO TID #90 tablet Primary Care Physician: Mati Cody MD [Primary Care Provider] - Please follow up with your Primary Care Physician in: In 1-2 weeks Please Follow Up With: Philip Knox MD When: in 1 week after TURP Please Follow Up With: Flaquito Angela MD When: IN 2 WEEKS for HEIDI Medical Necessity - Tobacco Use Smoking Status: Never smoker Tobacco Use: Non-smoker, Chew Meaningful Use Info Meaningful Use Diagnoses (Choose all that apply): None applicable Code Visit Inpatient E&M: 56441 Disch Hosp
--- NOTE | 2018-02-26 13:35 | DS.PCM_ITS ---
Discharge Date and Diagnosis - Problem List Patient Problems: Active and Suspected Problems (Last Updated 02/21/18 @ 14:09 by Gustavo Sauer DO) HEIDI (acute kidney injury) (Acute) UTI (urinary tract infection) (Acute) Urinary retention due to benign prostatic hyperplasia (Acute) Date of Admission: 02/21/18 Date of Discharge: 02/26/18 - Primary Discharge Diagnosis Active and Suspected Problems (Last Updated 02/21/18 @ 14:09 by Gustavo Sauer DO) HEIDI (acute kidney injury) (Acute) UTI (urinary tract infection) (Acute) Urinary retention due to benign prostatic hyperplasia (Acute) 1. Acute kidney injury most probably secondary to BPH/bladder outlet obstruction with bilateral hydronephrosis and hydroureter, dilatation of urinary tract up to UV junction: BPH with retention and large bladder mass with prostate obstruction: 2. Acute anemia secondary to hematuria and TURP, postoperative blood loss: 3. UTI cystitis secondary to bladder outlet obstruction Hospital Course and Treatment Summary of Care Provided: [] This 82-year-old gentleman who has not seen a physician for about 6 years was admitted with acute kidney injury secondary to bladder outlet obstruction with bilateral hydronephrosis and hydroureter admitting creatinine was 6. 3 3, BUN 66, bicarb 19, anion gap 12. UA positive of WBC 25-50 cells, 2+ bacteria, LE positive but nitrite negative. Urinary sodium 62 with urine creatinine 59.5. Patient also gave history of weight loss of about 70 pounds in last 2-3 years. Patient was seen and examined today. Earlier triple-lumen Santiago catheter was removed by Dr. Knox. Patient passed urine. No fever. General: Alert, Oriented x3, Cooperative HEENT: Atraumatic, PERRLA, EOMI, Normocephalic Neck: Supple, No JVD, Negative Carotid Bruits Lungs: Clear to auscultation, Normal air movement, No rhonchi, No wheeze Cardiovascular: Regular rate, Regular Rhythm, Normal S1, Normal S2, No murmurs Abdomen: Bowel Sounds Present, Soft, Non Tender, Non-Distended, - - On CBI. Slight hematuria Extremities: No edema, Capillary Refill Less than 3 Seconds Skin: No rashes, No breakdown Musculoskeletal: No Tenderness to Palpation of Joints or Extremities, Arthritic Changes Neurological: Cranial nerves II-XII grossly intact Psych/Mental Status: Normal Affect, Appropriate 1. Acute kidney injury most probably secondary to BPH/bladder outlet obstruction with bilateral hydronephrosis and hydroureter, dilatation of urinary tract up to UV junction: Patient has Santiago catheter and had immediate 1 L of urine drained. Renal bladder ultrasound shows bilateral hydronephrosis down to the UV junction. Bladder wall was diffusely thickened and trabeculated. Deborah lar finding in CT abdomen. No demonstrated source of distal urinary tract. On IV fluid. Flomax. Ornament Maker Hand and urologist consult reviewed. Discussed with Dr. Knox and he had advised to continue Santiago drainage for his kidney function to return to baseline and probably plan for TURP on Tuesday. BPH with retention and large bladder mass with prostate obstruction: Patient had TURP and transurethral resection of bladder mass: Postop day 1. Follow-up the biopsy. Incentive spirometry. Bronchodilator as needed. EKG shows normal sinus rhythm with PACs at 92 bpm. Chest x-ray report is as bernarda gs hyperexpanded. Coarsened interstitial markings suggestive of mild chronic fibrosis. No gross focal infiltrate, effusion or acute disease. Patient said he has never been a smoker. Patient is moderate perioperative risk for cystoscopy and possible TURP. The Villarreal perioperative cardiovascular risk is 0.14% 2. Acute anemia secondary to hematuria and TURP, postoperative blood loss:Hemoglobin had dropped from 10.1 to 9.5-8.3. IV sucrose was given. Hemoglobin is stabilized. Patient is discharged on ferrous sulfate 325 mg 3 times daily. 3. UTI secondary to bladder outlet obstruction with BPH: Continue ceftriaxone. UA suggestive of UTI. * Based on urinalysis findings * Continue with ceftriaxone that was started in the emergency room * Urine culture shows staph epidermidis suggestive of contamination. But clinically, continue antibiotic in view of positive UA with obstructive uropathy * Patient had total of 6 days of IV antibiotics, ceftriaxone. Discharged on 1 dose of cefadroxil 500 mg tomorrow based on creatinine clearance of about 17 mL/min 4. DVT prophylaxis: Bilateral SCDs. Discontinue heparin. Follow-up the bladder mass biopsy and prostatic tissue biopsy after TURP with Dr. Knox in about 1-2 weeks. Follow-up [place] [employer] catapult operator, Dr. ANGELA in 2 weeks. Follow with PCP in 1-2 weeks. His blood pressure needs to be monitored and if persistently high, needs antihypertensive medications. Discharge meds reconciliation done. Discharge follow-up with Dr. palacios. Total time spent, exact 35 minutes on discharge meds reconciliation, examination, review of imaging and blood test and discussion with the patient on follow-up instructions. Discharge Activity: May Not Drive Weight Bearing Status: Weight bearing as tolerated Call your doctor if you observe: Fever of 101 or Higher, Inability to have a bowel movement, Shortness of breath, - - Hematuria are unable to urinate Home Medications: Medications to take at Discharge Acetaminophen [Tylenol Tablet] 500 mg PO Q6H PRN PRN tablet 02/26/18 Cefadroxil [Duricef] 500 mg PO X1 #1 capsule 02/26/18 Docusate Sodium [Colace] 200 mg PO BID PRN PRN capsule 02/26/18 Ferrous Sulfate [Iron] 325 mg PO TID #90 tablet 02/26/18 Tamsulosin HCl [Flomax] 0.4 mg PO DAILY@1730 #30 capsule 02/26/18 Following Prescrptions Were Given to Patient: Cefadroxil [Duricef] 500 mg PO X1 #1 capsule Tamsulosin HCl [Flomax] 0.4 mg PO DAILY@1730 #30 capsule Ferrous Sulfate [Iron] 325 mg PO TID #90 tablet Primary Care Physician: Mati Cody MD [Primary Care Provider] - Please follow up with your Primary Care Physician in: In 1-2 weeks Please Follow Up With: Philip Knox MD When: in 1 week after TURP Please Follow Up With: Flaquito Angela MD When: IN 2 WEEKS for HEIDI Medical Necessity - Tobacco Use Smoking Status: Never smoker Tobacco Use: Non-smoker, Chew Meaningful Use Info Meaningful Use Diagnoses (Choose all that apply): None applicable Code Visit Inpatient E&M: 50679 Disch Hosp
[2018-02-26 13:53] VITALS: BP 140/66; PULSE 88; RESP 18; TEMP 36.4; O2SAT 98
== END 2018-02-26 13:59 | disposition home or self-care (01) | DRG 666 ==
LOC: ED 13:16 → MS3 14:09
PROVIDERS: Urology; Emergency Provider Emergency Medicine; Family Provider Internal Medicine; PCP Internal Medicine; Visit Provider Internal Medicine
PROC: 0TBB8ZZ Excision of Bladder, Via Natural or Artificial Opening Endoscopic (ICD-10-PCS; principal; 2018-02-24 14:35)
DX: N17.9 Acute kidney failure, unspecified (principal); N13.8 Other obstructive and reflux uropathy; D62 Acute posthemorrhagic anemia; N40.1 Benign prostatic hyperplasia with lower urinary tract symptoms; N39.498 Other specified urinary incontinence; R33.8 Other retention of urine; N32.0 Bladder-neck obstruction; N13.30 Unspecified hydronephrosis; N30.91 Cystitis, unspecified with hematuria
CPT/HCPCS: 36415; 51702; 71046; 74176; 76770; 80048; 81001; 82570; 84300; 85014; 85018; 85025; 87077; 87086; 87088; 87186; 87205; 88305; 93005; 97110; 97127; 97162; 97165; 97530; 97535; 97802; 99283; 99406; J1756; J7030; A4216; G0515; J2405

== ENCOUNTER → 2018-03-23 08:33 | Outpatient (CLI) | payer MEDICARE, OTHER, SELFPAY ==
[2018-03-23 10:26] LABS: Protein, Urine (Random) 57.6 mg/dL (<11.9); Protein:Creat Ratio 722 mg/g CRE (0-200)
[2018-03-24 16:12] LABS: Cytoplasmic Ab (C-ANCA) <1:20 titer (Neg:<1:20); PROEL- A/G Ratio 1.1 (0.7-1.7); PROEL- Albumin 3.8 g/dL (2.9-4.4); PROEL- Alpha-1 Globulin 0.3 g/dL (0.0-0.4); PROEL- Alpha-2 Globulin 1.1 g/dL (0.4-1.0); PROEL- Gamma Globulin 1.1 g/dL (0.4-1.8); PROEL- Globulin, Total 3.6 g/dL (2.2-3.9); PROEL- TOTAL PROTEIN 7.4 g/dL (6.0-8.5)
[2018-03-27 11:56] LABS: Complement C3 144 mg/dL (82-167); Perinuclear Ab (P-ANCA) <1:20 titer (Neg:<1:20)
== END ==
PROVIDERS: Family Provider Internal Medicine; PCP Internal Medicine; Referring Provider Internal Medicine Nephrology; Visit Provider Internal Medicine Nephrology
DX: N19 Unspecified kidney failure (principal)
CPT/HCPCS: 36415; 82570; 84156; 84165; 86160; 86256

== ENCOUNTER → 2018-06-23 08:25 | Outpatient (CLI) | payer MEDICARE, OTHER, SELFPAY ==
[2018-06-23 10:43] LABS: Protein, Urine (Random) 52.3 mg/dL (<11.9); Protein:Creat Ratio 418 mg/g CRE (0-200)
[2018-06-23 10:48] LABS: Albumin, Serum 3.8 g/dL (3.2-5.0); BUN 37 mg/dL (7-18); BUN/Creat Ratio 10.4 RATIO (10-20); Calcium,Total 8.7 mg/dL (8.5-10.1); Chloride 111 mmol/L (98-107); Creatinine, Serum 3.55 mg/dL (0.70-1.30); EST Glomerular Filtration Rate 18 mL/min (>60); Est Glom Filt Rate - Afr Amer 21 mL/min (>60); Glucose 91 mg/dL (74-106); Phosphorus 3.3 mg/dL (2.5-4.9); Potassium 4.3 mmol/L (3.5-5.1); Sodium Level 143 mmol/L (136-145)
== END ==
PROVIDERS: Family Provider Internal Medicine; PCP Internal Medicine; Referring Provider Internal Medicine Nephrology; Visit Provider Internal Medicine Nephrology
DX: N17.9 Acute kidney failure, unspecified (principal)
CPT/HCPCS: 36415; 80069; 82570; 84156

== ENCOUNTER → 2018-11-30 07:34 | Outpatient (CLI) | payer MEDICARE, OTHER, SELFPAY ==
[2018-02-24 18:05] VITALS: BMI 24.6
[2018-11-20 11:17] VITALS: BMI 27.8
[2018-11-30 10:09] LABS: Protein:Creat Ratio 604 mg/g CRE (0-200)
[2018-11-30 10:12] LABS: Hematocrit 35.9 % (40-54); Hemoglobin 11.2 g/dl (13.0-16.5); Mean Corp Hgb Conc 31.2 g/gl (32-36); Mean Corpuscular Hgb 29.6 pg (27.0-32.0); Mean Platelet Vol. 11.5 fl (6.2-12.0); Platelet Count 171 K/mm3 (150-450); RBC Distribution Width CV 14.9 % (11.6-14.6); RBC Distribution Width SD 49.7 fl (35.1-43.9); Red Blood Count 3.78 M/mm3 (4.6-6.2)
[2018-11-30 10:14] LABS: Scan Indicated on CBC? Y/N NO
[2018-11-30 10:36] LABS: Albumin, Serum 3.4 g/dL (3.2-5.0); BUN 46 mg/dL (7-18); BUN/Creat Ratio 16.8 RATIO (10-20); Chloride 104 mmol/L (98-107); Creatinine, Serum 2.73 mg/dL (0.70-1.30); EST Glomerular Filtration Rate 24 mL/min (>60); Est Glom Filt Rate - Afr Amer 29 mL/min (>60); Ferritin 425 ng/mL (26-388); Glucose 97 mg/dL (74-106); Iron 86 ug/dL (65-175); Iron Binding Capacity,Total 298 ug/dL (250-450); PERCENT IRON SATURATION 28.9 % (15.0-55.0); Phosphorus 2.3 mg/dL (2.5-4.9); Potassium 4.3 mmol/L (3.5-5.1); Sodium Level 139 mmol/L (136-145); Vitamin D,25 Hydroxy 25.1 ng/mL (29.95-100.01)
== END ==
PROVIDERS: Family Provider Internal Medicine; PCP Internal Medicine; Referring Provider Internal Medicine Nephrology; Visit Provider Internal Medicine Nephrology
DX: N17.9 Acute kidney failure, unspecified (principal); D64.9 Anemia, unspecified
CPT/HCPCS: 36415; 80069; 82306; 82570; 82728; 83540; 83550; 83970; 84156; 85027

== ENCOUNTER 2018-12-06 14:57 | Outpatient (RCR) | payer MEDICARE, OTHER, SELFPAY ==
[2018-11-20 11:17] VITALS: BMI 27.8
== END 2018-12-20 23:59 ==
LOC: NS 14:57
PROVIDERS: Family Provider Internal Medicine; PCP Internal Medicine; Visit Provider Student in an Organized Health Care Education/Training Program
DX: C06.9 Malignant neoplasm of mouth, unspecified (principal); N18.9 Chronic kidney disease, unspecified; Z71.3 Dietary counseling and surveillance
CPT/HCPCS: 77386; 97802; 97803

== ENCOUNTER → 2018-12-08 12:36 | Outpatient (CLI) | payer MEDICARE, OTHER, SELFPAY ==
[2018-02-24 18:05] VITALS: BMI 24.6
[2018-11-20 11:17] VITALS: BMI 27.8
--- NOTE | 2018-12-08 12:45 | SP.MBSS_ITS ---
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 José Miguel Guerra DO, MS CURRENT DIET: NPO with alternative means of nutrition via PEG. 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 PREVIOUS MODIFIED BARIUM SWALLOW STUDY: None. ASSESSMENT PARAMETERS: The Patient participated in a Modified Barium Swallow (MBS) study on 12/08/2018. Dr. Bender was the radiologist present for this evaluation. This study was recorded in the lateral view and images were sent to PACs for storage. Scoring was completed through each trial using the 8-point Penetration-Aspiration Scale (PAS) and Videofluoroscopic Scale Score (VSS), and summarized via the Modified Barium Swallow Impairment Profile (MBSImP) and the Bolus Residue Scale (BRS), with severity scoring through the Dysphagia Severity Rating Scale (DSRS), Swallowing Performance Scale (SPS), and the Dynamic Imaging Grade of Swallowing Toxicity (DIGEST), and recommended diet textures through the International Dysphagia Diet Standardisation Initiative (IDDSI). 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 OBJECTIVE ASSESSMENT OF SWALLOW FUNCTION (QUANTITATIVE ? PER TRIAL): PENETRATION / ASPIRATION SCALE (LUNA): 1 = does not enter airway 2 = enters airway/above vocal folds/ejected 3 = enters airway/above vocal folds/not ejected 4 = enters airway/contacts vocal folds/ejected 5 = enters airway/contacts vocal folds/not ejected 6 = enters airway/below vocal folds/ejected 7 = enters airway/below vocal folds/not ejected despite effort 8 = enters airway/below vocal folds/no effort VIDEOFLOROSCOPIC SCALE SCORE (LUNA): Grade I = aspiration of material that has penetrated into the laryngeal vestibule, intact cough reflex Grade II = aspiration < 10 % of the bolus, intact cough reflex Grade III = aspiration of < 10 % of the bolus, reduced cough reflex or aspiration of > 10 % of the bolus, intact cough reflex Grade IV = aspiration of > 10 % of the bolus, reduced cough reflex PENETRATION / ASPIRATION SCALE (SCORE) WITH VIDEOFLOROSCOPIC SCALE SCORE: Thin liquid - 5 mL tsp.: 1 Thin liquids via cup (single sip): 1 Thin liquids via cup (single sip): 7 ? Grade III Thin liquids via straw (chin tuck): 2 Thin liquids via straw (chin tuck): 1 Thin liquids via straw (chin tuck): NA* Thin liquids via straw (chin tuck): 3 Pudding via spoon: 1 Pudding via spoon: 1 Thin liquids via straw (chin tuck): 2 Thin liquids via straw (chin tuck): 8 ? Grade III [place] thickened liquids via straw (chin tuck): 1 [place] thickened liquids via straw: 1 [place] thickened liquids via straw: 1 [place] thickened liquids via straw: 3 [place] thickened liquids via straw: 2 * could not view images; Patient movement out of visual field. OBJECTIVE ASSESSMENT OF SWALLOW FUNCTION (QUANTITATIVE ? AGGREGATE): MODIFIED BARIUM SWALLOW IMPAIRMENT PROFILE (MBSImP) LABIAL SEAL: 4 (of 4) escape beyond mid chin TONGUE CONTROL: 1 (of 3) lateral buccal cavity / floor of mouth BOLUS PREPARATION / MASTICATION: did not test BOLUS TRANSPORT / LINGUAL MOTION: 1 (of 4) delayed initiation of motion ORAL RESIDUE: 2 (of 4) residue collection on oral structures INITIATION OF PHARYNGEAL SWALLOW: 3 (of 4) pyriforms SOFT PALATE ELEVATION: 1 (of 4) trace column between soft palate & pharyngeal wall LARYNGEAL ELEVATION: 2 (of 3) minimal superior movement / approximation ANTERIOR HYOID EXCURSION: 1 (of 2) partial movement EPIGLOTTIC MOVEMENT: 1 (of 2) partial inversion LARYNGEAL VESTIBULE CLOSURE: 1 (of 2) incomplete closure PHARYNGEAL STRIPPING WAVE: 1 (of 2) present / diminished PE SEGMENT OPENIN (of 3) minimal distension / duration; marked obstruction TONGUE BASE RETRACTION: 2 (of 4) narrow column of contrast PHARYNGEAL RESIDUE: 2 (of 4) collection of residue ESOPHAGEAL BOLUS CLEARANCE: 1 (of 4) mild / occasional esophageal retention BOLUS RESIDUE SCALE (BRS): 4 (of 6) residue in valleculae and pyriform sinus DYSPHAGIA SEVERITY RATING SCALE (DSRS): 5 (moderate-severe) SWALLOWING PERFORMANCE SCALE (SPS): 6 (moderate to severe) DYNAMIC IMAGING GRADE OF SWALLOWING TOXICITY (DIGEST): DIGEST SAFETY GRADE: Grade II DIGEST EFFICIENCY GRADE: Grade I SUMMARY DIGEST GRADE: Grade II (moderate) OBJECTIVE ASSESSMENT OF SWALLOW FUNCTION (QUALITATIVE): ORAL PREPARATORY PHASE: significantly impaired anterior bolus containment with anterior right sided bolus loss spilling past the chin with liquids (particularly with ingestion via cup); preserved management of breathing / bolus formation without disrupted E ? S ? E pattern; solid textures held due to concerns with pharyngeal motility and high clinical likelihood for suboptimal mastication (edentulous, continued loss of sensation status post right selective neck dissection and reconstruction). ORAL TRANSITIONAL PHASE: incompetent bolus manipulation / transportation with frequent fragmented swallowing (piecemeal deglutition) possibly complicated by anticipated difficulties with pharyngeal motility and / or oral sensory disruptions status post right selective neck dissection and reconstruction; slowed rate of movement with progressing oral phase swallow onset delay (2-3 seconds in length) with thicker viscosities; impaired oral clearance without side specific consolidation (though higher likelihood for right sided consolidation); no presence of premature posterior bolus loss. PHARYNGEAL PHASE: inconsistent pharyngeal swallow delay / dyssynchrony resulting in pre-prandial penetration and subsequent aspiration of thin liquids; reduced hyolaryngeal excursion with suboptimal laryngeal vestibule with inconsistent laryngeal vestibule pressure generated to fully expel penetrated material; pharyngeal dysmotility most prominently with thicker viscosities. ESOPHAGEAL PHASE: esophageal phase marked by small collection of post prandial residue at the C-7 location (may be structural related; inconsistent identification); upper esophageal phase otherwise appears unremarkable CONTRIBUTING / COMPLICATING FACTORS AND NOTABLE FINDINGS: inconsistent cough response with overall weak cough intensity when elicited in response to tracheobronchial aspiration (dystussia / atussia) with an inability to completely expel laryngotracheal aspiration. Mandibular hardware present along with multiple surgical felicita status post right selective neck dissection and reconstruction that did not significantly complicate views; RESPONSE TO STRATEGIES: all deficits appeared to be managed successfully with bolus rate / volume adjustments and diet texture / viscosity adjustments; improved bolus placement with use of straws; inconsistent albeit promising results with execution of the chin tuck posture (rather inconsistent execution). CONSIDERATIONS: The Patient was noted to overtly and SILENTLY aspirate with thin liquids, with clinical assessment at bedside relying on identification of classic overt signs and symptoms of aspiration considered unreliable (between 5-10% of bolus volume). Would strongly discourage advancement past nectar thickened liquids without completion of a repeat modified barium swallow study due to the presence of aspirate identified that was SILENT in nature. Would consider the Patient to be at a higher risk of aspiration related medical complications / aspiration pneumonia / aspiration related pulmonary syndrome secondary to an altered upper aerodigestive tract secondary to oropharyngeal cancer status post status post right selective neck dissection and reconstruction; the presence of dysphagia with extensive pharyngeal phase impairment; presence of SILENT aspiration identified under fluoroscopy, and potential for tracheobronchial aspiration of more dense viscosities; presence of dystussia; edentulous status; current lowered functional status; current tube feeding use / dependence. Would strongly advise against altering primary caloric intake route from alternative means of nutrition / PEG at this time. I would consider implementing careful monitoring for temperature spikes, or abnormal fatigue if any overt signs and symptoms of aspiration are noted during PO intake ingestion. The Patent is at higher risk of oropharyngeal colonization with respiratory pathogens secondary to the Patient?s advanced age, persistence of xerostomia, impaired salivary clearance, anticipated suboptimal immune system functioning, and placement on alternative means of nutrition. Aspiration of saliva contaminated with pathogens can lead to pulmonary infections, with creation, implementation, and adherence to an aggressive oral care program is essential. Results and recommendations were discussed with the Patient and Patients family immediately following MBS completion, with the Patient and Patients family verbalizing understanding and agreement with all recommendations and education provided. We discussed factors impacting effects of aspiration, to include: the quantity of aspiration, the depth of aspiration (trachea or distal airways), and the physical properties of the aspirate. We discussed consequences of oropharyngeal dysphagia, to include pulmonary complications from tracheobronchial aspiration; potential for airway obstruction / asphyxiation; inadequate oral intake because of dysphagia; reduced liquid intake resulting in dehydration; reduced caloric intake resulting in unintentional and potentially medically complicating loss of weight; impairment in mental and physical condition; complications in overall course of care; and increased risk for mortality / . We discussed benefits and risks associated with alternative means of nutrition, with increased access to caloric supplementation and reduce hydration deficits, in addition to possible reduction in stress associated with mealtimes, though gastrostomy feeding does not significantly reduce aspiration risk and may lead to reduced quality of life, disrupted sleep patterns, and stoma site infections. RECOMMENDATIONS: Recommend a repeat modified barium swallow study within 1-2 months post chemoradiation to further assess the Patients oropharyngeal swallow function and identify any post radiation changes in the oropharyngeal physiology, as the patient is at higher risk for continual changes and possible decline in swallow functioning / dysphagia severity throughout the chemoradiation intervention cycle; would benefit from continued monitoring and treatment plan adjustments as necessary. Would consider implementation of the [place] Free Water Protocol (FFWP) following Patient and family education IF the Patient has the adequate level of supervision to support implementation. Will continue to recommend an aggressive oral care program that includes pre-rinse use prior to water intake; routine oral care in the a.m., prior to oral intake, after oral intake, and prior to bed via swab / rinse; use of oral moisturizers as needed to reduce impact of xerostomia. The Patient requires continued intensive skilled speech-language intervention targeting diet texture management and training / implementation of recommended compensatory strategies; training and implementation of a home based prophylactic swallowing exercise program to promote the highest level of preserved post- irradiation swallow functioning status post irradiation; training and implementation of a Trismus based exercise program to promote improved (nima- irradiation) and sustained (post-irradiation) mandibular functioning; training and implementation of a home oral care protocol to reduce the effects of xerostomia and improve / maintain the integrity of the oral mucosa reducing the risk of aspiration related pulmonary complications; considerations for training / implementation of Expiratory Strength Muscle Training (EMST); considerations for implementation of thermal tactile approach to promote improved oral phase swallow onset;training, implementation, and Patient / caregiver education regarding implementation of the [place] Free Water Protocol (FFWP); Patient / caregiver education regarding nima and post-irradiation dysphagia and associated symptomology; And Patient / caregiver training targeting meal preparation / thickened liquid preparation PRIOR to advancement to a PO diet. DIET TEXTURE RECOMMENDATIONS: Will recommend a pureed textured (IDDSI: 4), nectar thickened liquid (IDDSI: 2) diet with continued utilization of alternative means of nutrition via PEG (to remain NPO pending Patient / family education regarding diet texture preparation). RECOMMENDED COMPENSATORY STRATEGIES: Direct supervision by family / spouse, reduced bolus volume / rate of ingestion, alternate bites and sips, straws with all liquids, seated upright at 90 degrees during PO intake, remain upright for 30-60 minutes post meal (GERD precaution), medications crushed in purees / via PEG. IMAGE COUNT: [id number] Dc Blakely M.A., CCC-KNOWLEDGE ENGINEER MBSImP Certified, LSVT Certified [facility] Speech-Language Pathology Department [email or web address]
--- NOTE | 2018-12-08 13:00 | RAD_ITS ---
STUDY: SWALLOWING STUDY REASON FOR EXAM: Male, 83 years old. Dysphagia. Status post radical neck dissection. TECHNIQUE: The examination was performed with Speech Pathology in attendance. Under fluoroscopic observation, the patient ingested thin barium, thick barium, barium pudding, and barium coated cracker. FLUOROSCOPY TIME: 3:23 minutes/seconds. [id number] images were obtained. RADIOLOGIST INVOLVEMENT: Radiologist was present and providing direct supervision. COMPARISON: None. FINDINGS: The following was observed during swallowing of the various mixtures of barium: Thin Barium: Aspiration with ingestion of thin liquids. Thick Barium: Transient penetration with ingestion of nectar thickened liquids. Barium Pudding: There was no evidence of aspiration or laryngeal penetration. Barium Coated Cracker: There was no evidence of aspiration or laryngeal penetration. RAD/Swallowing Function w/Video IMPRESSION: Aspiration with ingestion of thin liquids. Penetration with ingestion of nectar thickened liquids. The swallow study findings were discussed with the patient by the speech pathologist at the conclusion of the examination. Please see speech pathology report for more information and recommendations. Electronically Signed: Doug Bender, at 14:21 EDT , Service support ,
== END ==
PROVIDERS: Family Provider Internal Medicine; PCP Internal Medicine; Referring Provider Student in an Organized Health Care Education/Training Program; Visit Provider Student in an Organized Health Care Education/Training Program
DX: R13.10 Dysphagia, unspecified (principal)
CPT/HCPCS: 74230; 77336; 77386; 92611

== ENCOUNTER → 2019-01-29 13:02 | Outpatient (CLI) | payer MEDICARE, OTHER, SELFPAY ==
[2018-11-20 11:17] VITALS: BMI 27.8
[2018-12-13 09:20] VITALS: BMI 27.8
--- NOTE | 2019-01-29 13:25 | RAD_ITS ---
STUDY: SWALLOWING STUDY REASON FOR EXAM: Male, 83 years old. Dysphagia. TECHNIQUE: The examination was performed with Speech Pathology in attendance. Under fluoroscopic observation, the patient ingested thin barium, thick barium, barium pudding, and barium coated cracker. FLUOROSCOPY TIME: 4:18 minutes/seconds. [id number] spot images were obtained. RADIOLOGIST INVOLVEMENT: Radiologist was present and providing direct supervision. COMPARISON: Comparison is made with prior study dated December 08, 2018. FINDINGS: The following was observed during swallowing of the various mixtures of barium: Thin Barium: Silent aspiration with ingestion of thin liquids. Thick Barium: Transient penetration with ingestion of nectar thickened liquids. Barium Pudding: There was no evidence of aspiration or laryngeal penetration. Barium Coated Cracker: There was no evidence of aspiration or laryngeal penetration. RAD/Swallowing Function w/Video IMPRESSION: Solid aspiration with ingestion of thin liquids. Penetration with ingestion of nectar thickened liquids. The swallow study findings were discussed with the patient by the speech pathologist at the conclusion of the examination. Please see speech pathology report for more information and recommendations. Electronically Signed: Doug Bender, at 13:58 EDT , Service support ,
--- NOTE | 2019-01-29 14:00 | SP.MBSS_ITS ---
PRIMARY / SECONDARY DIAGNOSIS: dysphagia (R13.12) REFERRING PHYSICIAN: Dr. 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 PREVIOUS MODIFIED BARIUM SWALLOW STUDY: 12/08/2018 MBS revealed moderate to severe oropharyngeal dysphagia (DSRS: 5; SPS: 6; DIGEST: grade II) with grade III overt and SILENT aspiration of thin liquids. ASSESSMENT PARAMETERS: The Patient participated in a Modified Barium Swallow (MBS) study on 01/29/2019. Dr. Bender was the radiologist for this evaluation. This study was recorded in the lateral view and images were sent to PACs for storage. Scoring was completed through each trial using the 8-point Penetration- Aspiration Scale (PAS) and Videofluoroscopic Scale Score (VSS), and summarized via the Modified Barium Swallow Impairment Profile (MBSImP) and the Bolus Residue Scale (BRS), with severity scoring through the Dysphagia Severity Rating Scale (DSRS), Swallowing Performance Scale (PSP), and the Dynamic Imaging Grade of Swallowing Toxicity (DIGEST), and recommended diet textures through the International Dysphagia Diet Standardisation Initiative (IDDSI). 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 OBJECTIVE ASSESSMENT OF SWALLOW FUNCTION (QUANTITATIVE ? PER TRIAL): PENETRATION / ASPIRATION SCALE (LUNA): 1 = does not enter airway 2 = enters airway/above vocal folds/ejected 3 = enters airway/above vocal folds/not ejected 4 = enters airway/contacts vocal folds/ejected 5 = enters airway/contacts vocal folds/not ejected 6 = enters airway/below vocal folds/ejected 7 = enters airway/below vocal folds/not ejected despite effort 8 = enters airway/below vocal folds/no effort VIDEOFLOROSCOPIC SCALE SCORE (LUNA): Grade I = aspiration of material that has penetrated into the laryngeal vestibule, intact cough reflex Grade II = aspiration < 10 % of the bolus, intact cough reflex Grade III = aspiration of < 10 % of the bolus, reduced cough reflex or aspiration of > 10 % of the bolus, intact cough reflex Grade IV = aspiration of > 10 % of the bolus, reduced cough reflex PENETRATION / ASPIRATION SCALE (SCORE) WITH VIDEOFLOROSCOPIC SCALE SCORE: Thin liquid - 5 mL tsp.: 1 Thin liquids via flow controlled cup (single sip): 1 Thin liquids via flow controlled cup (single sip): 1 Thin liquids via flow controlled cup (single sip): 8 ? Grade III Thin liquids via cup (single sip): 3 Thin liquids via cup (single sip): 3 Kathryn thickened liquids via cup (single sip): 3, 8* ? Grade III Kathryn thickened liquids via cup (single sip): 1 Kathryn thickened liquids via cup (single sip): 1 Soft textured minced hardboiled eg Thin liquids via flow controlled cup (single sip): 1 Mixed textured breakfast bar: 1 Thin liquids via flow controlled cup (left head tilt): 1 Thin liquids via flow controlled cup (left head tilt): 1 Thin liquids via flow controlled cup (left head tilt): 1 Thin liquids via flow controlled cup (left head tilt): 1 Thin liquids via flow controlled cup (supraglottic swallow): 1 Thin liquids via flow controlled cup (supraglottic swallow): 1 Thin liquids via flow controlled cup (supraglottic swallow): 2 * denotes aspiration of previously penetrated materials denotes poor execution OBJECTIVE ASSESSMENT OF SWALLOW FUNCTION (QUANTITATIVE ? AGGREGATE): MODIFIED BARIUM SWALLOW IMPAIRMENT PROFILE (MBSImP) LABIAL SEAL: 1 (of 4) interlabial escape, no progression TONGUE CONTROL: 2 (of 3) posterior escape < 50% BOLUS PREPARATION / MASTICATION: 1 (of 3) slow prolonged; complete recollection BOLUS TRANSPORT / LINGUAL MOTION: 1 (of 4) delayed initiation of motion ORAL RESIDUE: 2 (of 4) residue collection on oral structures INITIATION OF PHARYNGEAL SWALLOW: 3 (of 4) pyriforms SOFT PALATE ELEVATION: 0 (of 4) no bolus between soft palate & pharyngeal wall LARYNGEAL ELEVATION: 1 (of 3) partial superior movement / approximation ANTERIOR HYOID EXCURSION: 1 (of 2) partial movement EPIGLOTTIC MOVEMENT: 1 (of 2) partial inversion LARYNGEAL VESTIBULE CLOSURE: 1 (of 2) incomplete closure PHARYNGEAL STRIPPING WAVE: 1 (of 2) present / diminished PE SEGMENT OPENIN (of 3) minimal distension / duration; marked obstruction TONGUE BASE RETRACTION: 2 (of 4) narrow column of contrast PHARYNGEAL RESIDUE: 2 (of 4) collection of residue ESOPHAGEAL BOLUS CLEARANCE: could not view BOLUS RESIDUE SCALE (BRS): 4 (of 6) residue in valleculae and piriform sinus DYSPHAGIA SEVERITY RATING SCALE (DSRS): 4 (moderate) SWALLOWING PERFORMANCE SCALE (SPS): 5 (moderate) DYNAMIC IMAGING GRADE OF SWALLOWING TOXICITY (DIGEST) DIGEST SAFETY GRADE: Grade 1 DIGEST EFFICIENCY GRADE: Grade 1 SUMMARY DIGEST GRADE: Grade 1 (mild) OBJECTIVE ASSESSMENT OF SWALLOW FUNCTION (QUALITATIVE): ORAL PREPARATORY PHASE: mastication inefficiency with prolonged and at times discoordinated mastication; impaired albeit improving anterior bolus containment during oral presentation / oral manipulation; preserved management of breathing / bolus formation ORAL TRANSITIONAL PHASE: inconsistent bolus manipulation / transportation with frequent fragmented swallowing (piecemeal deglutition), with impaired coordination status post-surgical intervention (again, improving) with varying onset timing associated with independent bolus preparation prior to transportation; impaired / inconsistent oral clearance with tendency to collect within the left buccal pocket (again improving); intermittent premature posterior bolus loss that appeared to spill from the left side pre and post deglutition directly contributing to pre-prandial aspiration of thin liquids. PHARYNGEAL PHASE: mild pharyngeal phase dyssynchrony most pronounced with thin liquids via cup; reduced hyolaryngeal excursion and duration insufficient laryngeal vestibule pressure generated to expel penetrated material; noted pharyngeal dysmotility with mild consolidation within the vallecula and at times pyriforms; no signs of velopharyngeal impairments. ESOPHAGEAL PHASE: no obvious esophageal phase abnormalities observed. CONTRIBUTING / COMPLICATING FACTORS AND NOTABLE FINDINGS: absent cough in response to tracheobronchial aspiration (atussia); sufficient / strong cued volitional cough intensity to expel penetrated material / laryngotracheal aspiration; mandibular hardware present along with multiple surgical felicita status post right selective neck dissection and reconstruction that did not significantly complicate views. RESPONSE TO STRATEGIES: all deficits managed successfully with reduction in bolus rate / volume adjustments, and diet texture / viscosity adjustments; promise noted with execution of a right head tilt, an additionally with correct execution of the supraglottic swallow maneuver - though execution of both the supraglottic swallow and right head tilt was not consistently accurate, would benefit from continued training. DYSPHAGIA ASSOCIATED MEDICAL CONSIDERATIONS / INTERVENTION CONSIDERATIONS: The Patient was noted to SILENTLY aspirate with thin liquids, with clinical assessment at bedside relying on identification of classic overt signs and symptoms of aspiration considered unreliable. All penetration identified very scant in nature, with very minimal amounts of contrast identified (approximately < 5% of bolus). Recommend a repeat modified barium swallow study within 3 - 6 months (if clinically appropriate) post irradiation to further assess the presence and extent of silent aspiration in addition to any progressive changes secondary to his recent neck irradiation. Would consider the Patient to be at a higher risk of aspiration related medical complications / aspiration pneumonia / aspiration related pulmonary syndrome secondary to his history of head and neck cancer with prior surgery and radiation therapy, presence of dysphagia with pharyngeal phase impairment, presence of SILENT aspiration identified under fluoroscopy, his edentulous status, his advanced age, and continued tube feeding use. Recommend careful monitoring for temperature spikes, or abnormal fatigue if any overt signs and symptoms of aspiration are noted during PO intake ingestion. Encouraged frequent and thorough oral care despite edentulous status to assist with reduction in aspiration related medical complications. Would consider the Patent to be at a higher risk of oropharyngeal colonization with respiratory pathogens secondary to the Patient?s advanced age, poor oral nutritional status, impaired salivary clearance, recent use of antibiotics possibly provoking a variety of respiratory nela, and placement on alternative means of nutrition. Aspiration of saliva contaminated with pathogens can lead to pulmonary infections, with creation, implementation, and adherence to an aggressive oral and dental care program is essential. Would consider the Patient to be a higher risk of non-compliance with dietary recommendations secondary to cost / financial considerations, distaste of altered liquid viscosities / diet texture recommendations, and negative impact on quality of life, with overall low compliance rates reported (40%; Vero et al. 2012). INTERVENTION RECOMMENDATIONS AND CONSIDERATIONS: The Patient requires intensive skilled speech-language intervention targeting diet texture management and training / implementation of recommended compensatory strategies, with specific recommendations for Patient training of the supraglottic swallow and the left head tilt posture); continued training and implementation of a home based prophylactic swallowing exercise program to promote the highest level of preserved post-irradiation swallow functioning; continued training and implementation of a Trismus based exercise program to promote sustained (post-irradiation) mandibular functioning; training, implementation, and Patient / caregiver education regarding implementation of the [place] Free Water Protocol (FFWP); continued Patient / caregiver education regarding nima and post-irradiation dysphagia and associated symptomology; and continued Patient and caregiver training targeting meal preparation / thickened liquid preparation. POST ASSESSMENT EDUCATION: Results and recommendations were discussed with the Patient and Patients family immediately following MBS completion, with the Patient and Patients family verbalizing understanding and agreement with all recommendations and education provided. We discussed factors impacting effects of aspiration, to include: the quantity of aspiration, the depth of aspiration (trachea or distal airways), and the physical properties of the aspirate. We discussed consequences of oropharyngeal dysphagia, to include pulmonary complications from tracheobronchial aspiration; potential for airway obstruction / asphyxiation; reduced liquid intake resulting in dehydration; reduced caloric intake resulting in unintentional and potentially medically complicating loss of weight; impairment in mental and physical condition; complications in overall course of care; and increased risk for mortality / . We discussed benefits and risks associated with alternative means of nutrition, with increased access to caloric supplementation and reduce hydration deficits, in addition to possible reduction in stress associated with mealtimes, though gastrostomy feeding does not significantly reduce aspiration risk and may lead to reduced quality of life, disrupted sleep patterns, and stoma site infections. I provided brief overview of signs and symptoms of aspiration, with recommendations for the Patient to further discuss symptoms with the Patients primary care provider. Further education is indicated. DIET TEXTURE RECOMMENDATIONS: Will recommend a pureed textured (IDDSI: 4), nectar thickened liquid (IDDSI: 2) diet RECOMMENDED COMPENSATORY STRATEGIES: Distant supervision, left sided bolus placement, check for right sided pocketing, reduced bolus volume / rate of ingestion, liquid chaser at reasonable intervals, seated upright at 90 degrees during PO intake, remain upright for 30-60 minutes post meal (GERD precaution); medications crushed in purees. Future considerations for execution of the supraglottic swallow and left head tilt following extensive training. IMAGE COUNT: [id number] Dc Blakely M.A., CCC-SPRING FORGER MBSImP Certified, LSVT Certified [facility] Speech-Language Pathology Department [email or web address]
== END ==
PROVIDERS: Family Provider Internal Medicine; PCP Internal Medicine; Referring Provider Student in an Organized Health Care Education/Training Program; Visit Provider Student in an Organized Health Care Education/Training Program
DX: R13.10 Dysphagia, unspecified (principal)
CPT/HCPCS: 74230; 92611

== ENCOUNTER 2019-03-07 13:39 | Outpatient (RCR) | payer MEDICARE, OTHER, SELFPAY ==
[2018-11-20 11:17] VITALS: BMI 27.8
[2018-12-13 09:20] VITALS: BMI 27.8
== END 2019-03-22 23:59 ==
LOC: NS 13:39
PROVIDERS: Family Provider Internal Medicine; PCP Internal Medicine; Visit Provider Student in an Organized Health Care Education/Training Program
DX: Z71.3 Dietary counseling and surveillance (principal); C06.9 Malignant neoplasm of mouth, unspecified; N18.9 Chronic kidney disease, unspecified
CPT/HCPCS: 97803

== ENCOUNTER → 2019-03-16 12:26 | Outpatient (CLI) | payer MEDICARE, OTHER, SELFPAY ==
[2018-11-20 11:17] VITALS: BMI 27.8
[2018-12-13 09:20] VITALS: BMI 27.8
--- NOTE | 2019-03-16 12:45 | RAD_ITS ---
STUDY: SWALLOWING STUDY REASON FOR EXAM: Male, 84 years old. Dysphagia. TECHNIQUE: The examination was performed with Speech Pathology in attendance. Under fluoroscopic observation, the patient ingested thin barium, thick barium, barium pudding, and barium coated cracker. FLUOROSCOPY TIME: 2:14 minutes/seconds. 1244 images were obtained. RADIOLOGIST INVOLVEMENT: Radiologist was present and providing direct supervision. COMPARISON: Comparison is made with prior study dated January 29, 2019. FINDINGS: The following was observed during swallowing of the various mixtures of barium: Thin Barium: Penetration with ingestion of thin liquids. Barium Pudding: There was no evidence of aspiration or laryngeal penetration. Barium Coated Cracker: There was no evidence of aspiration or laryngeal penetration. RAD/Swallowing Function w/Video IMPRESSION: Transient penetration with ingestion of thin liquids. The swallow study findings were discussed with the patient by the speech pathologist at the conclusion of the examination. Please see speech pathology report for more information and recommendations. Electronically Signed: Doug Bender, at 14:21 EDT , Service support ,
--- NOTE | 2019-03-16 13:00 | SP.MBSS_ITS ---
PRIMARY / SECONDARY DIAGNOSIS: dysphagia (R13.12) REFERRING PHYSICIAN: Dr. 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 PREVIOUS MODIFIED BARIUM SWALLOW STUDY: 12/08/2018 MBS revealed moderate to severe oropharyngeal dysphagia (DSRS: 5; SPS: 6; DIGEST: grade II) with grade III overt and SILENT aspiration of thin liquids. 01/29/2019 MBS revealed moderate oropharyngeal dysphagia (DSRS: 4; SPS: 5; DIGEST: grade I) with grade III SILENT aspiration of thin liquids ASSESSMENT PARAMETERS: The Patient participated in a Modified Barium Swallow (MBS) study on 03/16/2019. Dr. Bender was the radiologist present for this evaluation. This study was recorded in the lateral view and images were sent to PACs for storage. Scoring was completed through each trial using the 8-point Penetration-Aspiration Scale (PAS), and summarized via the Modified Barium Swallow Impairment Profile (MBSImP) and the Bolus Residue Scale (BRS), with severity scoring through the Dysphagia Severity Rating Scale (DSRS), Swallowing Performance Scale (PSP), and the Dynamic Imaging Grade of Swallowing Toxicity (DIGEST), and recommended diet textures through the International Dysphagia Diet Standardisation Initiative (IDDSI). 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 OBJECTIVE ASSESSMENT OF SWALLOW FUNCTION (QUANTITATIVE ? PER TRIAL): PENETRATION / ASPIRATION SCALE (LUNA): 1 = does not enter airway 2 = enters airway/above vocal folds/ejected 3 = enters airway/above vocal folds/not ejected 4 = enters airway/contacts vocal folds/ejected 5 = enters airway/contacts vocal folds/not ejected 6 = enters airway/below vocal folds/ejected 7 = enters airway/below vocal folds/not ejected despite effort 8 = enters airway/below vocal folds/no effort PENETRATION / ASPIRATION SCALE (SCORE): Thin liquid - 5 mL tsp.: 1 Thin liquids via cup (single sip): 1 Thin liquids via cup (single sip): 2 Thin liquids via cup (single sip): 2 Thin liquids via cup (single sip): 2 Thin liquids via cup (single sip): 2 Pudding via spoon: 1 Regular textured cookie: 1 Thin liquids via cup (sequential swallows): 3 OBJECTIVE ASSESSMENT OF SWALLOW FUNCTION (QUANTITATIVE ? AGGREGATE): MODIFIED BARIUM SWALLOW IMPAIRMENT PROFILE (MBSImP) LABIAL SEAL: 3 (of 4) escape progressing to mid-chin TONGUE CONTROL: 2 (of 3) posterior escape < 50% BOLUS PREPARATION / MASTICATION: 1 (of 3) slow prolonged; complete recollection BOLUS TRANSPORT / LINGUAL MOTION: 1 (of 4) delayed initiation of motion ORAL RESIDUE: 1 (of 4) trace residue lining oral structures* INITIATION OF PHARYNGEAL SWALLOW: 3 (of 4) pyriforms SOFT PALATE ELEVATION: 0 (of 4) no bolus between soft palate & pharyngeal wall LARYNGEAL ELEVATION: 1 (of 3) partial superior movement / approximation ANTERIOR HYOID EXCURSION: 1 (of 2) partial movement EPIGLOTTIC MOVEMENT: 1 (of 2) partial inversion LARYNGEAL VESTIBULE CLOSURE: 1 (of 2) incomplete closure PHARYNGEAL STRIPPING WAVE: 1 (of 2) present / diminished PE SEGMENT OPENIN (of 3) partial distension / duration* TONGUE BASE RETRACTION: 1 (of 4) trace column of contrast* PHARYNGEAL RESIDUE: 1 (of 4) trace residue* ESOPHAGEAL BOLUS CLEARANCE: could not view BOLUS RESIDUE SCALE (BRS): 2 (of 6) residue in valleculae* DYSPHAGIA SEVERITY RATING SCALE (DSRS): 3 (mild-moderate)* SWALLOWING PERFORMANCE SCALE (SPS): 3 (mild)* DYNAMIC IMAGING GRADE OF SWALLOWING TOXICITY (DIGEST) DIGEST SAFETY GRADE: Grade 1 (PAS 3-4) DIGEST EFFICIENCY GRADE: Grade 0 (< 10%; minimal to no residue)* SUMMARY DIGEST GRADE: Grade 1 (mild) * denotes improvement OBJECTIVE ASSESSMENT OF SWALLOW FUNCTION (QUALITATIVE): ORAL PREPARATORY PHASE: competent bolus manipulation with semisolids requiring brief mastication; efficiency complicated by chronic edentulous status limiting appropriateness for solid texture trials; impaired albeit improving anterior bolus containment during oral presentation / oral manipulation; preserved management of breathing / bolus formation ORAL TRANSITIONAL PHASE: inconsistent bolus manipulation / transportation with fragmented swallowing (piecemeal deglutition) with increased in prevalence likely attributed to Patient reported confusion with directions, varied oral phase swallow onset delay (1-4 seconds in length); improved and quite sufficient oral clearance; premature posterior bolus loss predominantly with liquid ingestion leading to intermittent pre-prandial shallow penetration. PHARYNGEAL PHASE: mild pharyngeal phase dyssynchrony most pronounced with thin liquids via cup; mild reduction in hyolaryngeal excursion and duration with inconsistent (albeit improving) laryngeal vestibule pressure generated to expel penetrated material; clear improvement in regards to pharyngeal motility, with no clinically significant findings of pharyngeal dysmotility across similar viscosity subtypes; no signs of velopharyngeal impairments. ESOPHAGEAL PHASE: esophageal phase appears unremarkable CONTRIBUTING / COMPLICATING FACTORS AND NOTABLE FINDINGS: sufficient / strong cued volitional cough intensity to expel penetrated material; mandibular hardware present along with multiple surgical felicita status post right selective neck dissection and reconstruction that did not significantly complicate views. RESPONSE TO STRATEGIES: all deficits managed successfully with reduction in bolus rate / volume adjustments; previously planned execution of the supraglottic swallow maneuver was not clinically indicated, as the Patient demonstrated improved airway integrity with the above stated less restrictive strategies. DYSPHAGIA ASSOCIATED MEDICAL CONSIDERATIONS / INTERVENTION CONSIDERATIONS: Improved functional performance this date, with no aspiration appreciated throughout trials; though given this fact we are unable to definitively rule out silent aspiration in the case of potential aspiration. As previously recommended, we will plan for annual repeat objective videofluoroscopic assessments moving forward (yearly) for the initial 5 years post irradiation to assess for progressive deteriorations in swallow function (adjustments to this plan as clinically appropriate), as this population is at a high risk for continual changes in swallow function post irradiation. I would consider the Patient to be at a higher risk of aspiration related medical complications / aspiration pneumonia / aspiration related pulmonary syndrome secondary to his history of head and neck cancer with prior surgery and radiation therapy, presence of dysphagia with pharyngeal phase impairment, his edentulous status, and his advanced age. Recommend careful monitoring for temperature spikes, or abnormal fatigue if any overt signs and symptoms of aspiration are noted during PO intake ingestion. Encouraged frequent and thorough oral care despite edentulous status to assist with reduction in aspiration related medical complications. INTERVENTION RECOMMENDATIONS AND CONSIDERATIONS: The Patient requires continued skilled speech-language intervention targeting diet texture management and training / implementation of recommended compensatory strategies; continued training and implementation of a home based prophylactic swallowing exercise program to promote the highest level of preserved post-irradiation swallow functioning; continued training and implementation of a Trismus based exercise program to promote sustained (post-irradiation) mandibular functioning; and continued Patient / caregiver education regarding nima and post-irradiation dysphagia and associated symptomology. POST ASSESSMENT EDUCATION: Results and recommendations were discussed with the Patient and Patients family immediately following MBS completion, with the Patient and Patients family verbalizing understanding and agreement with all recommendations and education provided. I provided brief overview of signs and symptoms of aspiration, with recommendations for the Patient to further discuss symptoms with the Patients primary care provider. Further education is indicated. DIET TEXTURE RECOMMENDATIONS: Will recommend a mechanical soft textured (IDDSI: 5), thin liquid diet (IDDSI: 0) diet RECOMMENDED COMPENSATORY STRATEGIES: Distant supervision, left sided bolus placement, check for right sided pocketing, reduced bolus volume / rate of ingestion, seated upright at 90 degrees during PO intake, remain upright for 30-60 minutes post meal (GERD precaution); medications with purees. IMAGE COUNT: [id number] Dc Blakely M.A., [employer], CBIS MBSImP Certified, LSVT Certified [facility] Speech-Language Pathology Department [email or web address]
== END ==
PROVIDERS: Family Provider Internal Medicine; PCP Internal Medicine; Referring Provider Student in an Organized Health Care Education/Training Program; Visit Provider Student in an Organized Health Care Education/Training Program
DX: C06.9 Malignant neoplasm of mouth, unspecified (principal); R13.12 Dysphagia, oropharyngeal phase
CPT/HCPCS: 74230; 92611

== ENCOUNTER 2019-04-25 11:00 | Outpatient (RCR) | payer MEDICARE, OTHER, SELFPAY ==
--- NOTE | 2018-11-10 13:30 | SOAP_ITS ---
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 The Patient underwent a left mandibular resection and bone graft with left sublingual tissue graft with percutaneous endoscopic gastrostomy (PEG) and tracheostomy tube placement (tracheostomy tube since removed on 10/23/2018). He is currently NPO with strong medical recommendations to hold any PO intake pending MBS completion, with all intake via PEG (5x daily) The Patient denies any coughing / throat clearing with intake, sensations of stasis, or sensations of nasopharyngeal reflux prior to surgical intervention; denies any significant weight loss or change in appetite (when he was cleared to eat) ; denies nausea and emesis; denies trismus (initial discomfort with mandibular movement post-surgical interventions); currently denies odynophagia; reports increasing albeit mild xerostomia (Grade I per RTOG) with persistent diurnal sialorrhea (SSS: 4); denies any dysgeusia / hypogeusia / ageusia or hyposmia; denies globus sensation, reflux, substernal discomfort, or abnormal / persistent eructation; denies any current or previous issues with aspiration related pulmonary complications, to include pneumonia, bronchitis, or unexplained asthma symptoms. The Patient appears cognitively intact; affect appears appropriate given the Patients current medical circumstances. 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 PREVIOUS MODIFIED BARIUM SWALLOW STUDY: None. ORAL MOTOR / MODIFIED CRANIAL NERVE ASSESSMENT: Currently healing flap reconstruction. CNV impaired: left facial hypoesthesia, left anterior lingual hypoesthesia, suboptimal mandibular strength / range of motion. CNVII impaired; left facial asymmetry at rest / upon contraction, left labial asymmetry at rest / upon retraction / protrusion, insufficient labial seal. CNIX impaired; left posterior lingual hypoesthesia. CNXII impaired; left lingual drift, impaired lingual strength, suboptimal left lingual mobility. Edentulous; remaining teeth recently extracted. Mild xerostomia with mild whitish coating on the lingual blade; diurnal sialorrhea extending to the chin and beyond with movement. Appropriate volitional cough intensity. Slight restriction in mandibular movement; does not clearly present as trismus. Moderate to marked dysarthria FUNCTIONAL STATUS ASSESSMENT RESULTS: Functional Assessment of Cancer Therapy ? 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 non-oral feeding (tube fed) Public Eatin ? not applicable Understandability of Speech: 25 ? difficult to understand Total Dysphagia Risk Score (TDRS): 20 ? High risk (TDRS > 18) CLINICAL ASSESSMENT OF SWALLOW FUNCTION (QUANTITATIVE): Repetitive Saliva Swallowing Test (RSST): Pass; > 2 dry swallows within 30 seconds. Modified Water Swallowing Test (MWST): unable to assess 1oz (30mL) Water Swallowing Test (1oz WST): unable to assess 3oz (90mL) Water Swallow Test (3oz WST): unable to assess Food Test: unable to assess Modified Lehman Assessment of Swallowing Ability (MMASA): 83 (Fail < 95) Lehman Assessment of Swallowing Ability ? Cancer (MASA-C): unable to assess MASA-C Dysphagia Risk Rating: Definite; strong evidence for disorder Swallowing Performance Scale (PSP): 7 (severe) Functional Oral Intake Scale (FIOS): 1 (no oral intake) CLINICAL ASSESSMENT OF SWALLOW FUNCTION (QUALITATIVE): ORAL PREPARATORY PHASE: unable to assess ORAL TRANSITIONAL PHASE: unable to assess PHARYNGEAL PHASE: unable to assess ESOPHAGEAL PHASE: unable to assess RESULTS OF THE EVALUATION: Clinical dysphagia evaluation completed this date, with the Patient presenting with severe oral dysphagia (R13.11) with possible pharyngeal phase impairment secondary to stage RACH (pT4a pN1 M0) 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 RECOMMENDATIONS: Cannot definitively rule out silent aspiration at bedside. The Patient requires further assessment of the oropharyngeal swallow function under fluoroscopy given the etiology of cause and anticipated severity level necessitating physician directions to hold any intake pending MBS completion. The patient is at higher risk for continual changes and possible decline in swallow functioning / dysphagia severity throughout the irradiation intervention cycle; would benefit from continued monitoring across all domains. Would consider implementation of the Waldrop Free Water Protocol (FFWP) following discussion with medical team in addition to Patient and family education completion if unable to advance to a PO diet post MBS. The Patient requires intensive skilled speech-language intervention targeting diet texture management and training / implementation of recommended compensatory strategies; training and implementation of a home based prophylactic swallowing exercise program to promote the highest level of preserved post-irradiation swallow functioning; training and implementation of a Trismus based exercise program to promote sustained (post-irradiation) mandibular functioning; training and implementation of a home oral care protocol to reduce the effects of xerostomia and improve / maintain the integrity of the oral mucosa reducing the risk of aspiration related pulmonary complications; training, implementation, and Patient / caregiver education regarding implementation of the Waldrop Free Water Protocol (FFWP); Patient / caregiver education regarding nima and post-irradiation dysphagia and associated symptomology; Patient and caregiver training targeting meal preparation / thickened liquid preparation (if / when advanced to a PO diet); with goal adjustment pending MBS completion. DIET TEXTURE RECOMMENDATIONS: Unable to determine least restrictive means of nutrition based on the findings obtained and pre-established intake restrictions this date, will require further assessment under fluoroscopy. Recommend NPO status with nutritional supplementation via established alternative route (PEG) FUNCTIONAL OUTCOMES: OUTCOME 1: the Patient will tolerate the least restrictive means of nutrition to facilitate adequate hydration / nutrition with optimum safety and efficiency of swallowing function during P.O. intake without overt signs and symptoms of aspiration. OUTCOME 2: the Patient will demonstrate and utilize recommended compensatory swallowing techniques to facilitate improved airway protection and decreased risk for aspiration during PO intake. OUTCOME 3: the Patient will independently demonstrate and utilize recommended safety precautions associated with the Waldrop Free Water Protocol to facilitate improved hydration / intake with complete independence across 3 consecutive sessions. OUTCOME 4: the Patient will demonstrate and utilize recommended oropharyngeal range of motion exercise within the Patients clinical and home based program to improve and maintain overall oropharyngeal functioning and reducing the effects of post-irradiation dysphagia, with minimal cueing and prompting provide by the clinician, across 2 out of 3 sessions. OUTCOME 5: The Patient will demonstrate and utilize recommended mandibular range of motion stretching and exercise within the Patients clinical and home based program to improve and maintain overall mandibular functioning and oral preparatory functioning reducing the effects of trismus, with minimal cueing and prompting provide by the clinician, across 2 out of 3 sessions. OUTCOME 6: the Patient will participate in a home based oral care program established during intervention sessions to facilitate improved and maintained integrity of the oral mucosa throughout the irradiation process with complete independence. OUTCOME 7: the Patient will participate in a repeat Modified Barium Swallow (MBS) study to objectively assess the Patient?s oropharyngeal swallowing function, to determine the least restrictive means of nutrition, and to identify appropriate intervention approaches / strategies to implement during treatment sessions at the supervised level. OUTCOME 8: goal adjustment as needed post MBS Dc Blakely M.A., CCC-VIOLIN RESTORER MBSImP Certified, LSVT Certified [facility] Speech-Language Pathology Department [email or web address]
[2018-11-20 11:17] VITALS: BMI 27.8
--- NOTE | 2019-01-18 08:50 | WMO.ENDTX_ITS ---
End of Treatment Summary: Diagnosis: Danisha Mota is an 83 year-old male diagnosed with pathologic Stage RACH (pT4a pN1 M0) poorly differentiated SCC involving multifocal sites in the oral cavity (right buccal mucosa, mandible, FOM) s/p CT neck and chest (10/10/2018) and Composite resection of tumor with right selective neck dissection and reconstruction (10/23/2018). Oncologic History: 10/06/2018: Biopsy of the right oral cavity lesion was consistent with poorly differentiated SCC 10/10/2018: CT chest with contrast was performed which demonstrated a few benign- appearing small nodular densities within the bilateral lungs including a 3 mm right upper lobe subpleural nodule, a 3 mm right lower lobe calcified nodule, and a 3 mm left lower lobe subpleural nodule. Recommend following up on future exams. There is no evidence of thoracic lymphadenopathy. There is a mildly ectatic ascending aorta measuring up to 4 cm in diameter with the rest of the thoracic aorta being normal. No evidence of metastatic disease is identified. 10/10/2018: CT neck with contrast was performed which demonstrated a right buccal space mass measuring approximately 45 mm x 24 mm in dimension. There is erosion of the adjacent right mandible as well as 2 prominent enhancing lymph nodes within the right submandibular space measuring approximately 15 and 13 mm in diameter which are suspicious for malignant lymph nodes. There is no other evidence of significant cervical adenopathy. 10/23/2018: Patient underwent direct laryngoscopy, flexible bronchoscopy, gastro- esophagoscopy, insertion of feeding tube, tracheotomy, right composite resection (mandible, floor of mouth, and overlying soft tissues), excision of right buccal region, right selective neck dissection levels 1 through 4, and mandibular reconstruction with plate. He also underwent left osteocutaneous fibular free flap reconstruction with microvascular anastomosis, split thickness skin graft to left lower extremity, and removal of all remaining teeth. Pathology demonstrated a poorly differentiated keratinizing squamous cell carcinoma measuring 5 cm, at least 19 mm depth of invasion, lymph vascular invasion is not identified, perineural invasion is not identified, buccal margin is involved with moderate squamous dysplasia but no invasive carcinoma identified on reexcision, the floor of mouth margin is involved by moderate to severe squamous dysplasia, 1 of 31 lymph nodes contained 0.6 cm of metastatic carcinoma located in the right level 1B region and RUDI was not identified. pT4a N1 11/07/2018: Patient was evaluated by ENT he was found to be healing well. Tracheostomy was still in place which have been included since he left the hospital, he had not resumed p.o. intake. Multiple margins were obtained with the final margin showing a degree of dysplasia. Trach was removed. 11/17/2018: patient was evaluated for healing, lower extremity donor site with questionable infection and antibiotics were given. The patient completed a course of external beam radiotherapy in our department. This treatment was delivered for curative intent. Treatment was given according to the following parameters: DANISHA MOTA received 6000 cGy delivered to tumor bed and dissected right neck and 5400 cGy delivered to the left neck levels 2 through 4, right neck level 5, and bilateral supraclavicular region. Treatment was delivered using 6 MV photons with a single VMAT plan with SIB technique consisting of 3 arcs. Daily CBCT was used for image guidance. The patient did not receive concurrent chemotherapy. Date of First Treatment: 12/04/18 Date of Last Treatment: 01/12/19 Total Elapsed Days (including weekend and holidays): 39 Missed Treatments: none Response and Tolerance: The patient tolerated this course of radiotherapy well overall. The following radiation related toxicities developed during the course of radiation therapy: * Grade 2 skin erythema with patchy dry desquamation which was treated with aquaphor * Grade 1-2 mucositis which was treated with MMW and other rinses * Grade 1 fatigue * Moderate xerostomia and mild dysguesia * Thrush developed and was treated with diflucan Total weight change during therapy: no weight loss. Continued with 6 cans isosource per day via PEG tube and slowly introduced soft foods during treatment with close observation by speech therapy At the end of therapy the physical examination showed no evidence of gross disease. Disposition: The patient tolerated the planned course of radiation therapy well without unexpected toxicity in an appropriate time course. I will have DANISHA follow-up in 2 weeks for a routine visit to assess resolution of radiation toxicity. The patient will maintain scheduled follow-up visits with the other providers. He was instructed to call with any further questions or concerns in the interim. If we can provide any further information on this patient's course of care, please do not hesitate to ask. We would like to thank you very much for allowing us to participate in the care of this patient. Sincerely, José Miguel Guerra DO, MS Powder Mixer, Department of Radiation Oncology [facility]
== END 2019-04-25 19:00 | disposition home or self-care (01) ==
LOC: SP 11:00
PROVIDERS: Family Provider Internal Medicine; PCP Internal Medicine; Visit Provider Otolaryngology
DX: C06.9 Malignant neoplasm of mouth, unspecified (principal); R13.10 Dysphagia, unspecified; R47.81 Slurred speech
CPT/HCPCS: 92507; 92526; 92610

== ENCOUNTER → 2019-06-06 09:31 | Outpatient (CLI) | payer MEDICARE, OTHER, SELFPAY ==
[2018-11-20 11:17] VITALS: BMI 27.8
[2018-12-13 09:20] VITALS: BMI 27.8
[2019-06-06 10:08] LABS: Hematocrit 43.2 % (40-54); Hemoglobin 13.9 g/dL (13.0-16.5); Mean Corp Hgb Conc 32.2 g/dL (32-36); Mean Corpuscular Hgb 30.6 pg (27.0-32.0); Mean Corpuscular Volume 95.2 fL (80-94); Mean Platelet Vol. 9.3 fl (6.2-12.0); Platelet Count 217 K/mm3 (150-450); RBC Distribution Width CV 13.2 % (11.6-14.6); RBC Distribution Width SD 46.2 fl (35.1-43.9); Red Blood Count 4.54 M/mm3 (4.6-6.2); White Blood Count 5.3 K/mm3 (4.4-11.0)
[2019-06-06 10:38] LABS: PTHIN 129.9 pg/mL (18.4-80.1)
[2019-06-06 10:39] LABS: Albumin, Serum 3.7 g/dL (3.2-5.0); BUN 31 mg/dL (7-18); BUN/Creat Ratio 12.1 RATIO (10-20); Calcium,Total 9.1 mg/dL (8.5-10.1); Chloride 104 mmol/L (98-107); Creatinine, Serum 2.56 mg/dL (0.70-1.30); EST Glomerular Filtration Rate 26 mL/min (>60); Est Glom Filt Rate - Afr Amer 31 mL/min (>60); Glucose 91 mg/dL (74-106); Phosphorus 3.2 mg/dL (2.5-4.9); Potassium 4.2 mmol/L (3.5-5.1); Sodium Level 138 mmol/L (136-145)
[2019-06-06 10:43] LABS: Vitamin D,25 Hydroxy 41.5 ng/mL (29.95-100.01)
[2019-06-06 12:43] LABS: Protein, Urine (Random) 10.7 mg/dL (<11.9); Protein:Creat Ratio 392 mg/g CRE (0-200)
== END ==
PROVIDERS: Family Provider Internal Medicine; PCP Internal Medicine; Referring Provider Internal Medicine Nephrology; Visit Provider Internal Medicine Nephrology
DX: N18.4 Chronic kidney disease, stage 4 (severe) (principal); D64.9 Anemia, unspecified
CPT/HCPCS: 36415; 80069; 82306; 82570; 83970; 84156; 85027; 92526

== ENCOUNTER 2019-08-01 09:00 | Outpatient (RCR) | payer MEDICARE, OTHER, SELFPAY ==
[2018-11-20 11:17] VITALS: BMI 27.8
[2018-12-13 09:20] VITALS: BMI 27.8
--- NOTE | 2019-08-01 18:21 | HP.SP.DC_ITS ---
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 The Patient participated in intervention sessions consisting of diet texture management and training / implementation of recommended compensatory strategies; training and implementation of a home based prophylactic swallowing exercise program to promote the highest level of preserved post-irradiation swallow functioning; training and implementation of a Trismus based exercise program to promote sustained (post-irradiation) mandibular functioning; training and implementation of a home oral care protocol to reduce the effects of xerostomia and improve / maintain the integrity of the oral mucosa reducing the risk of aspiration related pulmonary complications; training, implementation, and Patient / caregiver education regarding implementation of the [place] Free Water Protocol (FFWP); Patient / caregiver education regarding nima and post-irradiation dysphagia and associated symptomology; Patient and caregiver training targeting meal preparation / thickened liquid preparation. At this time, all intervention goals have been met. Following discussion with the Patient and his significant other, we will proceed with discharge from the speech-language pathology caseload, though would gladly re-initiate intervention as needed moving forward. I would consider the Patient to be at higher risk for continual changes and possible decline in swallow functioning / dysphagia severity post irradiation (late effects of radiation fibrosis can occur upwards of 40 years post treatment); he would benefit from continual monitoring and yearly follow up modified barium swallow studies for at least 5 years post irradiation. Given this, we will follow preferred practice patterns and recommend a repeat modified barium swallow study in addition to follow up clinical assessment of the swallow function at 1 year post irradiation (and additionally on a yearly basis for the initial 5 years post irradiation) unless earlier intervention is clinically indicated.
== END 2019-08-01 19:00 | disposition home or self-care (01) ==
LOC: SP 09:00
PROVIDERS: Family Provider Internal Medicine; PCP Internal Medicine; Referring Provider Otolaryngology; Visit Provider Otolaryngology
DX: C08.9 Malignant neoplasm of major salivary gland, unspecified (principal); R13.10 Dysphagia, unspecified; R47.81 Slurred speech
CPT/HCPCS: 92526

== ENCOUNTER → 2019-08-01 10:41 | Outpatient (CLI) | payer MEDICARE, OTHER, SELFPAY ==
[2018-11-20 11:17] VITALS: BMI 27.8
[2018-12-13 09:20] VITALS: BMI 27.8
== END ==
PROVIDERS: PCP Internal Medicine; Referring Provider Otolaryngology; Visit Provider Otolaryngology
DX: T66.XXXA Radiation sickness, unspecified, initial encounter (principal)
CPT/HCPCS: 36415; 84443

== ENCOUNTER → 2019-10-05 08:15 | Outpatient (CLI) | payer MEDICARE, OTHER, SELFPAY ==
[2018-11-20 11:17] VITALS: BMI 27.8
[2018-12-13 09:20] VITALS: BMI 27.8
[2019-10-05 16:21] LABS: Xtra Tube EP Lab EXTRA TUBE
== END ==
PROVIDERS: PCP Internal Medicine; Referring Provider Otolaryngology; Visit Provider Otolaryngology
DX: E03.9 Hypothyroidism, unspecified (principal)
CPT/HCPCS: 36415; 84443

== ENCOUNTER → 2019-11-22 12:07 | Outpatient (CLI) | payer MEDICARE, OTHER, SELFPAY ==
[2018-11-20 11:17] VITALS: BMI 27.8
[2018-12-13 09:20] VITALS: BMI 27.8
--- NOTE | 2019-11-22 14:05 | SP.MBSS_ITS ---
Primary/Secondary Diagnosis: oropharyngeal dysphagia (R13.12) Referring Physician: Dr. 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 Reason for Referral: repeat MBS study due to history of dysphagia Current Diet: mechanical soft textures/thin liquids Dentition: edentulous Mental Status: WFL Respiratory Status: oxygenating on room air Previous Modified Barium Swallow: February 2019 at [facility] Study Findings: This patient was seen for a Modified Barium Swallow Study. This study was recorded in the lateral view and images were sent to PACs for storage. The following consistencies were presented to this patient for analysis of oropharyngeal swallow function: thin liquid, nectar thick liquid, pudding, and a cookie. Oral Phase Labial seal: Escape progressing to mid-chin Tongue control during bolus hold: posterior escape of less than half of bolus Bolus preparation/mastication: disorganized chewing/mashing with solid pieces of bolus unchewed Bolus transport/lingual motion: slowed tongue motion Oral residue: residue collection on oral structures Pharyngeal Phase Initiation of pharyngeal swallow: bolus head in pyriforms Soft palate elevation: trace column of contrast/air between soft palate and pharyngeal wall Laryngeal elevation: partial superior movement of thyroid cartilage/partial approximation of arytenoids cartilage to epiglottic petiole Anterior hyoid excursion: partial anterior movement Epiglottic movement: partial inversion Laryngeal vestibule closure at height of swallow: incomplete; narrow column of air/contrast in laryngeal vestibule Pharyngeal stripping wave: present diminished Pharyngoesophageal segment opening: partial distension and partial duration; partial obstruction of flow Tongue base retraction: narrow column of contrast between tongue base and posterior pharyngeal wall Pharyngeal residue: collection of residue within or on pharyngeal structures Penetration-Aspiration Scale 1 = does not enter airway 2 = enters airway/above vocal folds/ejected 3 = enters airway/above vocal folds/not ejected 4 = enters airway/contacts vocal folds/ejected 5 = enters airway/contacts vocal folds/not ejected 6 = enters airway/below vocal folds/ejected 7 = enters airway/below vocal folds/not ejected despite effort 8 = enters airway/below vocal folds/no effort Penetration-Aspiration Scale Score: 1) Thin liquids via teaspoon = 1 2) Thin liquids via teaspoon = 2 3) Thin liquids via large single sip from cup = 4 4) Thin liquids via sequential sips from cup = 4 5) Thin liquids via small single sips from cup = 1 6) [place] thick liquid via large single sip from cup = 2 7) [place] thick liquid via large single sip from cup = 1 8) pudding = 1 9) cookie = 1 10) Thin liquid via sequential sips from straw = 1 11) Thin liquids via sequential sips from cup = 4 Diagnosis: mild-moderate oropharyngeal dysphagia (R13.12) Impression: The patient was found to have penetration of thin liquids to the vocal cords which were able to be ejected naturally. Patient did show improvement in thin liquid tolerance when taking small single sips one at a time. With solid Lyla Doone cookie broken into small pieces (1/4 of cookie) the patient had lengthy mastication with some of cookie requiring to be spit out as the patient was unable to break it down any more to swallow. No aspiration found on this date or time. Recommendations Diet: mechanical soft textures/thin liquids Compensatory Strategies Recommended: moisten food with sauce/gravy/condiments, distant supervised meals, small bites/sips, upright 90 degrees during PO intake and 30-60 minutes, straws ok. ADDITIONAL COMMENTS/RECOMMENDATIONS: All results and recommendations were reviewed with the patient and patients following MBS completion, with the patient and verbalizing understanding and agreement with all recommendations and education provided. Encouraged patient to further discuss symptoms with the patients primary care provider and/or ordering physician. Sofie Garnica MA, CCC-SUPERIOR COURT JUDGE [place] [phone] [email or web address]
== END ==
PROVIDERS: PCP Internal Medicine; Referring Provider Student in an Organized Health Care Education/Training Program; Visit Provider Student in an Organized Health Care Education/Training Program
DX: R13.12 Dysphagia, oropharyngeal phase (principal)
CPT/HCPCS: 74230; 92611

== ENCOUNTER 2019-12-05 10:07 | Outpatient (RCR) | payer MEDICARE, OTHER, SELFPAY ==
[2018-11-20 11:17] VITALS: BMI 27.8
[2018-12-13 09:20] VITALS: BMI 27.8
--- NOTE | 2019-12-05 10:30 | SOAP_ITS ---
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 The Patient?s was present for the evaluation, and provided additional details regarding the Patient?s current level of functioning. The Patient reports infrequent post prandial throat clearing / coughing (< 1x per week) since the previous intervention cycle, in addition to intermittent anterior bolus loss (bilateral) with thin liquid administration (this is managed through use of a restricted flow cup), and occasionally with manipulation of solids and liquids, otherwise he reports he has no significant issues with intake tolerance. He continues to demonstrate mastication limitations, though he is edentulous; he is able to sufficiently self-select appropriate items for intake. He reports persistent mild xerostomia (dry mouth), though this does not significantly complicate intake. He denies any unintentional weight loss (reports he has gained ~5lbs since irradiation); denies any issues with appetite or early satiety (feeling full after few bites); denies issues with dysgeusia / hypogeusia / ageusia / hyposmia; denies any symptoms associate with trismus; denies odynophagia (pain during swallow); denies issues with reflux/heartburn, globus sensation, post prandial substernal discomfort, or feelings of bolus stasis. He denies any current or previous issues with aspiration related pulmonary complications, to include pneumonia, bronchitis, or unexplained asthma symptoms. He reports he continues to adhere to recommended carryover oropharyngeal exercise maintenance program established during intervention sessions, as well as adherence to trismus and cervical lymphedema based exercises 2-3x per day. He reports he wears his cervical compression garment at night, and reports self-perceived benefit. 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 (right buccal mucosa, mandible, floor of the mouth) status post composite resection of tumor with right selective neck dissection and reconstruction (10/23/2018), status post percutaneous endoscopic gastrostomy (PEG) tube placement (10/23/2017), status post tracheostomy tube placement (10/23/2018; removed 11/07/2018), smokeless tobacco abuse (since 1965; quit this month); benign bladder mass, stage 4 chronic kidney disease, venous thromboembolism, status post tonsillectomy PREVIOUS MODIFIED BARIUM SWALLOW STUDY: 12/08/2018 MBS revealed moderate to severe oropharyngeal dysphagia (DSRS: 5; SPS: 6; DIGEST: grade II) with grade III overt and SILENT aspiration of thin liquids. 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 FUNCTIONAL STATUS ASSESSMENT RESULTS: SANTO INDEX OF INDEPENDENCE IN ACTIVITIES OF DAILY LIVING: BATHIN DRESSIN TOILETIN TRANSFERRIN CONTINENCE: 1 FEEDIN TOTAL SCORE: 6/6 INTERPRETATION: lower scores indicate worse impairment EULA-CRISTOBAL INSTRUMENTAL ACTIVITIES OF DAILY LIVING SCALE (IADL): ABILITY TO USE THE TELEPHONE: 1 SHOPPIN FOOD PREPARATION: 1 HOUSEKEEPIN LAUNDRY: 1 MODE OF TRANSPORTATION: 1 RESPONSIBILITY FOR OWN MEDICATION: 1 ABILITY TO HANDLE FINANCES: 1 TOTAL SCORE: 8/8 INTERPRETATION: lower scores indicate worse impairment FUNCTIONAL AMBULATION CATEGORY (FAC): FAC SCORE: 5 (ambulator- independent) FAC DESCRIPTION: subject can ambulate independently on nonlevel and level surfaces, stairs, and inclines. SUPPLEMENTARY DYSPHAGIA ASSESSMENT RESULTS (SCALES / PROM): REFLUX SYMPTOM INDEX (RSI) RSI TOTAL SCORE: 0 RSI INDICATIONS: a score of >13 may indicate significant reflux [employer] ORGANIZATION (WHO) ORAL MUCOSITIS SCALE: WHO ORAL MUCOSITIS SCALE GRADE: grade 0 WHO ORAL MUCOSITIS SCALE GRADE DESCRIPTION: no objective findings, function irrelevant [facility] XEROSTOMIA QUESTIONNAIRE: TOTAL SCORE: 8/80 INTERPRETATION: higher scores indicate worse impairment RTOG RADIATION MORBIDITY SCORING CRITERIA FOR XEROSTOMIA: LATE EFFECTS: grade I GRADE DESCRIPTION: slight dryness of mouth; good response on stimulation SIALORRHEA SCORING SCALE (SSS): SSS SCORE: 2/9 SSS DESCRIPTION: mild, only the lips are wet, occasionally SCALE OF SUBJECTIVE TOTAL TASTE ACUITY (STTA): STTA GRADE: grade 0 STTA GRADE DESCRIPTION: same taste acuity as before treatment INTER-INCISOR DISTANCE (IID) AVERAGE IID: 5.0 cm IID GRADE: grade 0 IID GRADE DESCRIPTION: no symptoms of OSMF; no trismus PERFORMANCE STATUS SCALE FOR HEAD & NECK CANCER PATIENTS (PSS-HN): NORMALCY OF DIET: 50 ? soft chewable foods PUBLIC EATIN ? no restriction of place, food, or company UNDERSTANDABILITY OF SPEECH: 75 ? understandable most of the time; occasional repetition necessary PSS-HN TOTAL SCORE: 225/300 NE PEDRO LUIS DYSPHAGIA INVENTORY (MDADI): GLOBAL: 35 PHYSICAL: EMOTIONAL: FUNCTIONAL: COMPOSITE SCORE: 55 MEAN POINT SCORE: 2.89 FINAL SCORE: 57.89 (poor) ORAL MOTOR / MODIFIED CRANIAL NERVE ASSESSMENT: TRIGEMINAL NERVE (CNV): abnormal; left facial hypoesthesia; left anterior lingual hypoesthesia FACIAL NERVE (CNVII): abnormal; left facial asymmetry upon retraction; left labial asymmetry; insufficient labial seal GLOSSOPHARYNGEAL NERVE (CNIX): abnormal; left posterior lingual hypoesthesia VAGUS NERVE (CNX): abnormal; intermittent dysphonic vocal quality HYPOGLOSSAL NERVE (CNXII): abnormal; left lingual drift; impaired left sided lingual strength; suboptimal left sided lingual mobility. DENTITION: edentulous upper / lower status ORAL MUCOSA / GINGIVA: moist appearance to the oral cavity SALIVATION: mild xerostomia (dry mouth) reported; occasional diurnal sialorrhea (drooling during daytime) COUGH SUFFICIENCY: appropriate volitional cough intensity OBJECTIVE ASSESSMENT OF SWALLOW FUNCTION (QUANTITATIVE ? PER TRIAL): 11/22/2019 MBS PENETRATION / ASPIRATION SCALE (SCORE): Thin liquid - 5 mL tsp.: 1 Thin liquid - 5 mL tsp.: 1* Thin liquids via cup (single sip): 4 Thin liquids via cup (sequential swallows): 4 Thin liquids via cup (single sip): 1 [place] thickened liquids via cup (single sip): 2 [place] thickened liquids via cup (single sip): 1 Pudding via spoon: 1 Regular textured cookie: 1 Thin liquids via straw (sequential swallows): 2 Thin liquids via cup (single sip): 2 Thin liquids via cup (single sip): 2 Thin liquids via cup (single sip): 1 * denotes increased density with scar tissue from prior tracheostomy tube site, questionable aspiration (unable to verify) OBJECTIVE ASSESSMENT OF SWALLOW FUNCTION (SEVERITY GRADING): 11/22/2019 [facility] DYSPHAGIA SEVERITY RATING SCALE (DSRS): DSRS CLASSIFICATION: 3 (mild-moderate) DSRS CLASSIFICATION CHARACTERISTICS: mild-moderate dysphagia?potential for aspiration exists but is diminished by specific swallow techniques and a modified diet; time for eating is significantly increased; thus supplemental nutrition may be indicated. SWALLOWING PERFORMANCE SCALE (SPS): SPS CLASSIFICATION: 4 (mild to moderate) SPS CLASSIFICATION CHARACTERISTICS: mild-moderate impairment with need for therapeutic precautions: mild dysfunction in oral and pharyngeal stage; requires modified diet and therapeutic precautions to minimize aspiration risk BOLUS RESIDUE SCALE (BRS): BRS SCORE: 1 (of 6) BRS SCORE DESCRIPTION: no residue DYSPHAGIA CLASSIFICATION SCALE (DCS): DCS CLASSIFICATION: D0 (normal) DCS CLASSIFICATION CHARACTERISTICS: without stasis or food consistency restrictions DYNAMIC IMAGING GRADE OF SWALLOWING TOXICITY (DIGEST) DIGEST SAFETY GRADE: grade 1 SAFETY GRADE DESCRIPTION: (PAS 3-4) DIGEST EFFICIENCY GRADE: grade 1 EFFICIENCY GRADE DESCRIPTION: (10-49%; less than half residue; any bolus type) SUMMARY DIGEST GRADE: grade 1 (mild) CLINICAL ASSESSMENT OF SWALLOW FUNCTION (QUANTITATIVE): REPETITIVE SALIVA SWALLOWING TEST (RSST): RSST RESULT: pass RSST DESCRIPTION: able to elicit 2 dry swallows within 30 seconds. 1OZ WATER SWALLOWING TEST (1OZ WST): 1OZ WST RESULTS: normal ? 1 (of 5) 1OZ WST DESCRIPTION: single swallow without coughing during ingestion DRINKING EPISODES: none 3OZ WATER SWALLOWING TEST (3OZ WST): 3OZ WST RESULTS: normal DRINKING EPISODES: none DUPREE ASSESSMENT OF SWALLOWING ABILITY ? CANCER (MASA-C): MASA ASPIRATION SEVERITY SCORE: 169 MASA SEVERITY SCORE DESCRIPTION: moderate impairment MASA-C DYSPHAGIA RISK RATING: definite; strong evidence for disorder CLINICAL ASSESSMENT OF SWALLOW FUNCTION (QUALITATIVE): ORAL PREPARATORY PHASE: mastication inefficiency with prolonged mastication complicated primarily by his edentulous status; impaired anterior bolus containment with intermittent bilateral anterior bolus loss (markedly improved from prior intervention cycle); preserved management of breathing / bolus formation without disrupted E ? S ? E pattern ORAL TRANSITIONAL PHASE: sufficient bolus transportation; no lingual discoordination (no tremor / undulations) noted upon digital palpation; sufficient oral clearance; no signs or symptoms of premature posterior bolus loss; sufficient oral containment across textures; PHARYNGEAL PHASE: mild reduction in hyolaryngeal excursion and duration upon digital palpation possibly suggestive of suboptimal laryngeal vestibule closure / pressure / duration; no obvious findings suggestive of pharyngeal phase delay / dyssynchrony (mild issues prevalent during review of fluoroscopic imaging); no signs or symptoms of pharyngeal dysmotility; no subjective signs of velopharyngeal impairments; no signs or symptoms of penetration / aspiration throughout trials. ESOPHAGEAL PHASE: esophageal phase appears unremarkable CLINICAL ASSESSMENT OF SWALLOW FUNCTION (SEVERITY GRADING): SWALLOWING PERFORMANCE SCALE (SPS): SPS SCORE: 4 (mild to moderate) SPS SCORE DESCRIPTION: mild-moderate impairment with need for therapeutic precautions: mild dysfunction in oral and pharyngeal stage; requires modified diet and therapeutic precautions to minimize aspiration risk INTERVENTION CONSIDERATIONS AND RECOMMENDATIONS: The patient presents with essentially maintained intake abilities, with slight improvements noted in pharyngeal motility. At this time it is appropriate to continue with implementation of carryover oropharyngeal, trismus, and lymphedema based exercises vs. re-initiation of intervention, with re-assessment of the swallow function under fluoroscopy and in the clinical setting in 1 year (for initial 5 years post irradiation). POST ASSESSMENT EDUCATION: The results and recommendations were discussed with the Patient and the Patients family immediately following completion of the assessment, with the Patient and the Patients family verbalizing understanding and agreement with all recommendations and education provided. We discussed factors impacting effects of aspiration, to include: the quantity of aspiration, the depth of aspiration (trachea or distal airways), and the physical properties of the aspirate. We discussed consequences of oropharyngeal dysphagia, to include pulmonary complications from tracheobronchial aspiration; potential for airway obstruction / asphyxiation; inadequate oral intake because of dysphagia with possible reductions in liquid intake resulting in dehydration and/or reduced caloric intake resulting in unintentional and potentially medically complicating loss of weight; impairment in mental and physical condition to include increased disability rates and lengthening of healing; and potential complications in overall course of care with later discharge from acute admissions / increased length of hospitalizations and overall worse rehabilitation outcomes; and increased risk for mortality / . We discussed the Patients elevated risk for continual changes and possible decline in swallow functioning / dysphagia severity post irradiation. We discussed recommendations for continued use of prophylactic oropharyngeal strengthening / range of motion exercises to reduce the effects of post radiation induced oropharyngeal dysphagia associated with head and neck cancer. I provided brief overview of signs and symptoms of aspiration, with recommendations for the Patient to further discuss symptoms with the Patients primary care provider. DIET TEXTURE RECOMMENDATIONS: Will recommend a mechanical soft textured (IDDSI: 5), thin liquid diet (IDDSI: 0) diet RECOMMENDED COMPENSATORY STRATEGIES: Direct supervision by family / spouse, reduced bolus volume / rate of ingestion, liquid chaser at reasonable intervals, cut solids into bite sized pieces, seated upright at 90 degrees during PO intake, remain upright for 30- 60 minutes post meal (GERD precaution), medications one at a time with a liquid chaser or purees. Dc Blakely M.A., [employer] ENGINEERING MANAGER, CBIS MBSImP Certified, LSVT Certified [facility] Speech-Language Pathology Department Email: [email or web address]
--- NOTE | 2020-05-02 12:55 | HP.SP.DC ---
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 The patient presents with essentially maintained intake abilities, with slight improvements noted in pharyngeal motility. At this time it is appropriate to continue with implementation of carryover oropharyngeal, trismus, and lymphedema based exercises vs. re-initiation of intervention, with re-assessment of the swallow function under fluoroscopy and in the clinical setting in 1 year (for initial 5 years post irradiation). Will discharge from the skilled speech-language pathology caseload at this time, though would gladly re-initiate intervention as needed moving forward.
== END 2019-12-05 19:00 | disposition home or self-care (01) ==
LOC: SP 10:07
PROVIDERS: PCP Internal Medicine; Referring Provider Student in an Organized Health Care Education/Training Program; Visit Provider Student in an Organized Health Care Education/Training Program
DX: R13.10 Dysphagia, unspecified (principal)
CPT/HCPCS: 92610

== ENCOUNTER → 2020-07-03 11:32 | Outpatient (CLI) | payer MEDICARE, OTHER, SELFPAY ==
[2018-11-20 11:17] VITALS: BMI 27.8
[2018-12-13 09:20] VITALS: BMI 27.8
[2020-07-03 15:07] LABS: Hematocrit 43.8 % (40-54); Hemoglobin 14.2 g/dL (13.0-16.5); Mean Corp Hgb Conc 32.4 g/dL (32-36); Mean Corpuscular Hgb 31.3 pg (27.0-32.0); Mean Corpuscular Volume 96.5 fL (80-94); Mean Platelet Vol. 10.3 fl (6.2-12.0); Platelet Count 151 K/mm3 (150-450); RBC Distribution Width CV 12.6 % (11.6-14.6); RBC Distribution Width SD 44.9 fl (35.1-43.9); Red Blood Count 4.54 M/mm3 (4.6-6.2)
[2020-07-03 15:15] LABS: Protein:Creat Ratio 369 mg/g CRE (0-200)
[2020-07-03 15:21] LABS: BUN 27 mg/dL (7-18); BUN/Creat Ratio 10.5 RATIO (10-20); Calcium,Total 9.4 mg/dL (8.5-10.1); Chloride 103 mmol/L (98-107); Creatinine, Serum 2.57 mg/dL (0.70-1.30); EST Glomerular Filtration Rate 25 mL/min (>60); Est Glom Filt Rate - Afr Amer 31 mL/min (>60); Glucose 110 mg/dL (74-106); Phosphorus 2.4 mg/dL (2.5-4.9); Potassium 4.4 mmol/L (3.5-5.1); Sodium Level 136 mmol/L (136-145); Vitamin D,25 Hydroxy 34.7 ng/mL
== END ==
PROVIDERS: PCP Internal Medicine; Referring Provider Internal Medicine Nephrology; Visit Provider Internal Medicine Nephrology
DX: N18.4 Chronic kidney disease, stage 4 (severe) (principal); D64.9 Anemia, unspecified
CPT/HCPCS: 36415; 80069; 82306; 82570; 83970; 84156; 85027

== ENCOUNTER → 2021-01-30 08:26 | Outpatient (CLI) | payer MEDICARE, OTHER, SELFPAY ==
[2018-11-20 11:17] VITALS: BMI 27.8
[2021-01-30 10:32] LABS: Protein, Urine (Random) 21.9 mg/dL (<11.9); Protein:Creat Ratio 490 mg/g CRE (0-200)
[2021-01-30 10:50] LABS: Anion Gap 8 (5-15); BUN 27 mg/dL (7-18); BUN/Creat Ratio 12.3 RATIO (10-20); Calcium,Total 9.3 mg/dL (8.5-10.1); Chloride 106 mmol/L (98-107); EST Glomerular Filtration Rate 30 mL/min (>60); Est Glom Filt Rate - Afr Amer 37 mL/min (>60); Glucose 95 mg/dL (74-106); Sodium Level 139 mmol/L (136-145)
== END ==
PROVIDERS: PCP Internal Medicine; Referring Provider Internal Medicine Nephrology; Visit Provider Internal Medicine Nephrology
DX: N18.4 Chronic kidney disease, stage 4 (severe) (principal)
CPT/HCPCS: 36415; 80048; 82570; 84156

== ENCOUNTER → 2021-09-10 | Outpatient (CLI) | payer MEDICARE, OTHER, SELFPAY ==
[2018-11-20 11:17] VITALS: BMI 27.8
[2021-09-10 10:22] LABS: Protein, Urine (Random) 9.8 mg/dL (<11.9); Protein:Creat Ratio 649 mg/g CRE (0-200)
[2021-09-10 10:23] LABS: Anion Gap 5 (5-15); BUN 27 mg/dL (7-18); Calcium,Total 9.1 mg/dL (8.5-10.1); Chloride 104 mmol/L (98-107); Creatinine, Serum 2.46 mg/dL (0.70-1.30); EST Glomerular Filtration Rate 27 mL/min (>60); Est Glom Filt Rate - Afr Amer 32 mL/min (>60); Glucose 104 mg/dL (74-106); Potassium 4.3 mmol/L (3.5-5.1); Sodium Level 137 mmol/L (136-145)
== END | disposition home or self-care (01) ==
LOC: MTLAB 08:35
PROVIDERS: PCP Internal Medicine; Referring Provider Nurse Practitioner Adult Health; Visit Provider Nurse Practitioner Adult Health
DX: N18.4 Chronic kidney disease, stage 4 (severe) (principal)
CPT/HCPCS: 36415; 80048; 82570; 84156

== ENCOUNTER → 2022-02-15 | Outpatient (CLI) | payer MEDICARE, OTHER, SELFPAY ==
[2018-11-20 11:17] VITALS: BMI 27.8
[2022-02-15 12:25] LABS: Protein, Urine (Random) 25.3 mg/dL (<11.9); Protein:Creat Ratio 371 mg/g CRE (0-200)
[2022-02-15 12:28] LABS: PTHIN 132.4 pg/mL (18.4-80.1)
[2022-02-15 12:49] LABS: Anion Gap 9 (5-15); BUN 28 mg/dL (7-18); BUN/Creat Ratio 12.3 RATIO (10-20); Calcium,Total 9.5 mg/dL (8.5-10.1); Chloride 107 mmol/L (98-107); Creatinine, Serum 2.27 mg/dL (0.70-1.30); EST Glomerular Filtration Rate 29 mL/min (>60); Est Glom Filt Rate - Afr Amer 35 mL/min (>60); Glucose 97 mg/dL (74-106); Potassium 4.4 mmol/L (3.5-5.1); Sodium Level 140 mmol/L (136-145)
== END | disposition home or self-care (01) ==
PROVIDERS: PCP Internal Medicine; Referring Provider Nurse Practitioner Adult Health; Visit Provider Nurse Practitioner Adult Health
DX: N18.4 Chronic kidney disease, stage 4 (severe) (principal)
CPT/HCPCS: 36415; 80048; 82306; 82570; 83970; 84156

== ENCOUNTER → 2022-08-13 | Outpatient (CLI) | payer MEDICARE, OTHER, SELFPAY ==
[2018-11-20 11:17] VITALS: BMI 27.8
[2022-08-13 12:38] LABS: Hemoglobin 14.6 g/dL (13.0-16.5); Mean Corp Hgb Conc 32.4 g/dL (32-36); Mean Corpuscular Hgb 31.3 pg (27.0-32.0); Mean Corpuscular Volume 96.4 fL (80-94); Mean Platelet Vol. 10.2 fl (6.2-12.0); Platelet Count 170 K/mm3 (150-450); RBC Distribution Width CV 12.9 % (11.6-14.6); RBC Distribution Width SD 45.8 fl (35.1-43.9); Red Blood Count 4.67 M/mm3 (4.6-6.2); White Blood Count 5.7 K/mm3 (4.4-11.0)
[2022-08-13 12:49] LABS: BUN 29 mg/dL (7-18); BUN/Creat Ratio 12.7 RATIO (10-20); Calcium,Total 9.3 mg/dL (8.5-10.1); Chloride 104 mmol/L (98-107); Creatinine, Serum 2.29 mg/dL (0.70-1.30); EST Glomerular Filtration Rate 29 mL/min (>60); Est Glom Filt Rate - Afr Amer 35 mL/min (>60); Glucose 102 mg/dL (74-106); Potassium 4.6 mmol/L (3.5-5.1); Sodium Level 135 mmol/L (136-145)
[2022-08-13 12:52] LABS: Protein, Urine (Random) 9.9 mg/dL (<11.9); Protein:Creat Ratio 418 mg/g CRE (0-200)
[2022-08-13 12:57] LABS: Vitamin D,25 Hydroxy 39.4 ng/mL
[2022-08-13 12:58] LABS: PTHIN 155.9 pg/mL (18.4-80.1)
== END | disposition home or self-care (01) ==
LOC: MTLAB 10:59
PROVIDERS: PCP Internal Medicine; Referring Provider Nurse Practitioner Adult Health; Visit Provider Nurse Practitioner Adult Health
DX: N18.4 Chronic kidney disease, stage 4 (severe) (principal); D63.1 Anemia in chronic kidney disease
CPT/HCPCS: 36415; 80069; 82306; 82570; 83970; 84156; 85027

== ENCOUNTER → 2023-02-14 | Outpatient (CLI) | payer MEDICARE, OTHER, SELFPAY ==
[2018-11-20 11:17] VITALS: BMI 27.8
[2023-02-14 12:08] LABS: Hematocrit 45.1 % (40-54); Hemoglobin 14.3 g/dL (13.0-16.5); Mean Corp Hgb Conc 31.7 g/dL (32-36); Mean Corpuscular Hgb 31.4 pg (27.0-32.0); Mean Corpuscular Volume 99.1 fL (80-94); Mean Platelet Vol. 10.1 fl (6.2-12.0); Platelet Count 186 K/mm3 (150-450); Protein, Urine (Random) 20.8 mg/dL (<11.9); Protein:Creat Ratio 264 mg/g CRE (0-200); RBC Distribution Width CV 13.2 % (11.6-14.6); RBC Distribution Width SD 47.5 fl (35.1-43.9); Red Blood Count 4.55 M/mm3 (4.6-6.2); White Blood Count 6.2 K/mm3 (4.4-11.0)
[2023-02-14 12:35] LABS: Albumin, Serum 3.8 g/dL (3.2-5.0); BUN 26 mg/dL (7-18); BUN/Creat Ratio 10.2 RATIO (10-20); Calcium,Total 9.4 mg/dL (8.5-10.1); Chloride 107 mmol/L (98-107); Creatinine, Serum 2.54 mg/dL (0.70-1.30); EST Glomerular Filtration Rate 26 mL/min (>60); Est Glom Filt Rate - Afr Amer 31 mL/min (>60); Glucose 100 mg/dL (74-106); Phosphorus 2.5 mg/dL (2.5-4.9); Potassium 4.3 mmol/L (3.5-5.1); Sodium Level 140 mmol/L (136-145)
[2023-02-16 07:53] LABS: PTHIN 84.1 pg/mL (18.4-80.1)
== END | disposition home or self-care (01) ==
LOC: MTLAB 10:14
PROVIDERS: PCP Internal Medicine; Referring Provider Internal Medicine Nephrology; Visit Provider Internal Medicine Nephrology
DX: N18.4 Chronic kidney disease, stage 4 (severe) (principal)
CPT/HCPCS: 36415; 80069; 82306; 82570; 83970; 84156; 85027

== ENCOUNTER 2023-08-14 12:01 | Inpatient (IN) | payer MEDICARE, OTHER, SELFPAY ==
[2018-11-20 11:17] VITALS: BMI 27.8
[2023-08-14 12:03] VITALS: BP 107/74; PULSE 93; RESP 18; TEMP 36.6; O2SAT 97; BMI 24.8
--- NOTE | 2023-08-14 13:28 | EKG12_ITS ---
Test Reason : Blood Pressure : / mmHG Vent. Rate : 078 BPM Atrial Rate : 078 BPM P-R Int : 228 ms QRS Dur : 096 ms QT Int : 378 ms P-R-T Axes : 068 -05 038 degrees QTc Int : 430 ms Sinus rhythm with 1st degree A-V block with Premature supraventricular complexes Otherwise normal ECG Confirmed by Carlos Finch ([id number]), publication editor DAV VICENTE ([id number]) on 08/16/2023 9:10:04 AM Referred By: Confirmed By:Carlos Finch
[2023-08-14] MEDS: 0.9% Normal Saline (1000mL) 1,000 ML 1000 ML IV ×2 (13:38→15:00)
[2023-08-14] MEDS: Ondansetron 4 MG/2 ML Vial IV (13:39)
[2023-08-14 13:41] LABS: Absolute Lymphocyte Count 0.72 X10^3/uL (0.83-4.51); Absolute Neutrophil Count 15.5 X10^3/uL (2.0-7.7); Basophil# 0.03 X10^3/uL; Basophil% 0.2 % (0-1); Eosinophil# 0.32 X10^3/uL; Eosinophils% 1.8 % (0-5); Hematocrit 37.2 % (40-54); Lymphocyte # 0.72 X10^3/ul (0.83-4.51); Mean Corp Hgb Conc 32.3 g/dL (32-36); Mean Corpuscular Hgb 30.1 pg (27.0-32.0); Mean Corpuscular Volume 93.2 fL (80-94); Mean Platelet Vol. 9.8 fl (6.2-12.0); Monocyte# 1.19 X10^3/uL; Monocyte% 6.7 % (0-10); NRBC Flagged by Analyzer 0 % (0-5); Neutrophil # 15.53 X10^3/uL (2.7-7.7); Neutrophil % 86.8 % (47-70); Platelet Count 254 K/mm3 (150-450); RBC Distribution Width CV 12.9 % (11.6-14.6); RBC Distribution Width SD 44.2 fl (35.1-43.9); Red Blood Count 3.99 M/mm3 (4.6-6.2); White Blood Count 17.9 K/mm3 (4.4-11.0)
--- NOTE | 2023-08-14 13:50 | RAD_ITS ---
STUDY: XR Chest 1 View 08/14/2023 1:47 PM REASON FOR EXAM: Male, 88 years old. weakness COMPARISON: None TECHNIQUE: XR Chest 1 View FINDINGS: There is a right pleural effusion. There is a solid appearing masslike lesion in the right lower lobe measuring 74 x 78 mm. Normal heart size. Normal mediastinum. Normal palma. Prominent appearing increased interstitial lung markings. Normal visualized pulmonary arteries. There is atherosclerotic calcification of the aortic arch with tortuosity. There are diffuse degenerative changes of the visualized thoracic spine. There is degenerative osteoarthritis of the bilateral shoulders. There are no acute findings of the upper abdomen. RAD/Chest 1 View (Portable) IMPRESSION: Right lower lobe mass. Recommend CT chest with IV can better evaluate. Small right pleural effusion. Electronically Signed: Aj Cueva MD at 14:23 EDT ,
--- NOTE | 2023-08-14 13:50 | EDS_ITS ---
HPI History of Present Illness Chief Complaint: Nausea/Vomiting/Diarrhea Narrative Narrative: 88-year-old female presenting with family out of concern for dehydration. Patient's family states that his legs are weak. Patient unable to ambulate since about a week ago. Patient states that he has a couple episodes of loose watery stools a day and does not eat very much. He drinks about 1 bottle of water per day. He has diminished p.o. intake for food. No fevers. He has not complained of any nausea. He has not had chest pain, shortness of breath, abdominal pain. They deny him having a cough. He is making not very much urine however. Family states that the last time he voided was 3 or 4 AM this morning. And has not voided up until now and its almost 2:00. Patient also complains of left leg pain. He states he has a lump on the left medial calf. He is not anticoagulated he has expressed concern he might have a DVT. [facility] Medical History Benign bladder mass Inguinal hernia Squamous cell carcinoma of oral cavity Stage 4 chronic kidney disease Venous insufficiency VTE (venous thromboembolism) Home Medications losartan 25 mg tablet 25 mg PO DAILY 06/20/23 [History Last Taken 08/14/23] levothyroxine 125 mcg tablet (Synthroid) 125 mcg PO DAILY 08/14/23 [History Last Taken 08/14/23] Allergy/AdvReac Type Severity Reaction Status Date / Time polymyxin B Allergy Swelling Verified 06/20/23 13:02 Family History Brother Rectal cancer Prostate CA Mesothelioma Daughter Colon cancer Surgical History History of tonsillectomy Social History Smoking Status: Never smoker ROS ROS ED Constitutional Constitutional ED: Denies chills, fever(s) or sweats Eyes Eyes: Denies blurry vision or change in vision ENT ENT ED: Denies ear pain or sore throat Cardiovascular Cardiovascular: Denies chest pain, palpitations or racing heartbeat Respiratory/Chest Respiratory/Chest: Denies cough, dyspnea or sputum Gastrointestinal Gastrointestinal: Reports diarrhea and other Details: Decreased p.o. intake ; Denies abdominal pain, constipation, nausea or vomiting Genitourinary Genitourinary ED: Denies dysuria, hematuria or urinary frequency Musculoskeletal Musculoskeletal: Reports myalgias; Denies arthralgias or neck pain Integumentary Denies abscess, Abrasions or rash Neurologic Neurologic: Denies headache(s), paresthesias or weakness Psychiatric Psychiatric: Denies anxiety, depression, suicidal ideation or suicidal thoughts Endocrine Endocrinology: Denies polydipsia or polyuria EXAM Physical Exam Const Vital Signs: 08/14/23 12:03 08/14/23 14:02 08/14/23 15:09 Temperature 97.8 F 97.8 F Temperature Source Oral Pulse Rate 93 68 77 Respiratory Rate 18 15 23 H Blood Pressure 107/74 147/109 H 169/88 H Blood Pressure Mean 85 121 115 Pulse Ox 97 94 98 Oxygen Delivery Method Room Air 08/14/23 15:10 Temperature 97.8 F Temperature Source Temporal Pulse Rate 90 Respiratory Rate 17 Blood Pressure 169/88 H Blood Pressure Mean 115 Pulse Ox 98 Oxygen Delivery Method Room Air MDM MDM MDM Narrative Medical decision making narrative: Patient presenting with decreased p.o. intake, weakness, inability to ambulate. Patient has not been eating and drinking over the last week. He is also not vomiting but does have a lot of diarrhea. Patient's family states that every time he tries to eat or drink he gags and chokes. No fevers at home. Patient has a history of oral cancer distantly. Patient denies any pain currently. Differential includes COVID, influenza, RSV, dehydration, anemia, electrolyte abnormalities, pneumonia. CBC was obtained to assess white blood cell count, hemoglobin, platelets. CMP to assess liver function, renal function, electrolytes, glucose. CBC shows leukocytosis of 17.9. Hemoglobin 12.0 creatinine elevated at 3.93 with a baseline of about 2.5. Patient was given IV fluids. Calcium elevated today at 13.6 again patient was hydrated and this will need to be rechecked. Given that the patient is too weak to ambulate he will need to be admitted for hydration and mobility. Chest x-ray which I obtained today shows concern for a right lower lobe mass with a small pleural effusion associated which could be better elucidated by CT. I discussed with the hospitalist and we will try to hydrate the patient better to try to get a CT with contrast which would elucidate more. Urinalysis is still pending. Patient will be placed on Unasyn to cover for aspiration pneumonia given his choking concerns. Discussed with family for admission. COVID, influenza, RSV all negative. Impression: 1. Aspiration pneumonia 2. Debility 3. Acute kidney injury 4. Diarrhea 5. Right lower lobe mass Lab Data Attestation: I reviewed the patient's lab results. Labs: Laboratory Results - last 24 hr 08/14/23 12:16 WBC 17.9 H RBC 3.99 L Hgb 12.0 L Hct 37.2 L MCV 93.2 MCH 30.1 MCHC 32.3 RDW Std Deviation 44.2 H RDW Coeff of [place] 12.9 Plt Count 254 MPV 9.8 Immature Gran % (Auto) 0.500 Neut % (Auto) 86.8 H Lymph % (Auto) 4.0 L [place] % (Auto) 6.7 Eos % (Auto) 1.8 Baso % (Auto) 0.2 Absolute Neuts (auto) 15.5 H Absolute Lymphs (auto) 0.72 L Nucleated RBC % 0 Sodium 138 Potassium 4.4 Chloride 109 H Carbon Dioxide 21.0 Anion Gap 8 BUN 75 H Creatinine 3.93 H Estim Creat Clear Calc 11.95 Est GFR (MDRD) Af Amer 19 L Est GFR (MDRD) Non-Af 16 L BUN/Creatinine Ratio 19.1 Glucose 98 Calcium 13.6 H* Total Bilirubin 0.60 AST 27 ALT 35 Alkaline Phosphatase 94 Total Creatine Kinase 87 Total Protein 6.6 Albumin 2.9 L Globulin 3.7 Albumin/Globulin Ratio 0.8 L Radiography Diagnostic Testing: Clinical Impression(s) from Imaging Studies Chest X-Ray 08/14/23 13:50 IMPRESSION: Right lower lobe mass. Recommend CT chest with IV can better evaluate. Small right pleural effusion. Electronically Signed: Aj Cueva MD at 14:23 EDT , Discharge Plan Disposition Disposition: Acute Care Hospital [facility] Discharge Date/Time: 08/14/23 15:31
[2023-08-14 14:02] VITALS: BP 147/109; PULSE 68; RESP 15; O2SAT 94
[2023-08-14 14:08] LABS: ALB/GLOB Ratio 0.8 RATIO (0.9-2.4); AST(SGOT) 27 U/L (15-37); Alanine Aminotransfer ALT/SGPT 35 U/L (16-61); Albumin, Serum 2.9 g/dL (3.2-5.0); Alkaline Phosphatase 94 U/L (45-117); Anion Gap 8 (5-15); BUN 75 mg/dL (7-18); BUN/Creat Ratio 19.1 RATIO (10-20); CPK Total, Creatine Kinase 87 U/L (39-308); Calcium,Total 13.6 mg/dL (8.5-10.1); Chloride 109 mmol/L (98-107); Creatinine, Serum 3.93 mg/dL (0.70-1.30); EST Glomerular Filtration Rate 16 mL/min (>60); Est Glom Filt Rate - Afr Amer 19 mL/min (>60); Estimated Creatinine Clearance 11.95 ml/min; Globulin 3.7 g/dL (2.2-4.2); Glucose 98 mg/dL (74-106); Potassium 4.4 mmol/L (3.5-5.1); Protein, Total 6.6 g/dL (6.4-8.2); Sodium Level 138 mmol/L (136-145)
--- NOTE | 2023-08-14 14:30 | ED.RN ---
Spoke with [facility]. They would like social work to see patient on the floor. Message left for Saritha Lindquist.
--- NOTE | 2023-08-14 14:51 | HP.PCM.HOS_ITS ---
HPI - General General Date of Admission: 08/14/23 Date of Service: 08/14/23 Chief Complaint: Progressive weakness HPI Narrative DANISHA MOTA, is a 88 M who presents to the ED with progressive weakness since the last 1 week. 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 From 12/04/18 - 01/12/19 he received 6000 cGy delivered to tumor bed and dissected right neck and 5400 cGy delivered to the left neck levels 2 through 4, right neck level 5, and bilateral supraclavicular region. Also has CKD stage IV [baseline creatinine around 2], hypertension on losartan 20 mg daily, hypothyroidism on levothyroxine 112 mcg daily. Much of the history was provided by the daughter and bedside. Since last 1 week [around August 05] they have been noticing progressive decline in his vitality and energy levels. Gets tired after walking few steps. There have been occasions where he had to sit down on the ground while walking and crawled back to the bed or chair because of weakness. His p.o. intake has declined significantly including hydration. Has 1-2 bowel movements daily generally soft no blood noticed. Has episodes of nocturia, no increased frequency of urine noted. The family takes care of much of his activities of daily living. He is edentulous following his radiation therapy and is on mechanical soft diet at home. Over the last few weeks family has been noticing dysphagia with solids associated with instant coughing and regurgitation of the food. No fever, headache, prior stroke, chest pain or CVA in the past. No anticoagulation [facility] Medical History Benign bladder mass Inguinal hernia Squamous cell carcinoma of oral cavity Stage 4 chronic kidney disease Venous insufficiency VTE (venous thromboembolism) Home Medications losartan 25 mg tablet 25 mg PO DAILY 06/20/23 [History Last Taken 08/14/23] levothyroxine 125 mcg tablet (Synthroid) 125 mcg PO DAILY 08/14/23 [History Last Taken 08/14/23] Allergy/AdvReac Type Severity Reaction Status Date / Time polymyxin B Allergy Swelling Verified 06/20/23 13:02 Family History Brother Rectal cancer Prostate CA Mesothelioma Daughter Colon cancer Surgical History History of tonsillectomy Social History Smoking Status: Never smoker ROS Review of Systems ROS Unobtainable: Denies due to encephalopathy, due to endotracheal tube, due to mental condition, due to mental status or other Constitutional Constitutional: Reports anorexia, change in weight, fatigue, malaise and weakness Eyes Eyes: Denies blurry vision, change in eye color, change in vision, discharge from eye(s), double vision, erythema, eye pain, loss of vision or other ENT HEENT: Reports abnormal hearing Cardiovascular Cardiovascular: Denies chest pain, claudication, dyspnea on exertion, edema, lightheadedness, orthopnea, palpitations, paroxysmal nocturnal dyspnea, rapid heart rate, syncope or other Respiratory/Chest Respiratory/Chest: Denies cough, dyspnea, excessive phlegm production, hemoptysis, productive cough, shortness of breath at rest, shortness of breath with exertion, wheezing or other Gastrointestinal Gastrointestinal: Denies abdominal pain, coffee ground emesis, constipation, diarrhea, dyspepsia, hematemesis, hematochezia, loose stools, melena, nausea, vomiting or other Genitourinary Genitourinary: Denies burning urination, difficulty urinating, dysuria, hematuria, nocturia, urinary frequency, urinary hesitancy, urinary incontinence, urinary urgency or other Musculoskeletal Musculoskeletal: Denies arthralgias, back pain, joint pain, joint stiffness, joint swelling, myalgias, neck pain or other Neurologic Neurologic: Reports abnormal gait and confusion; Denies abnormal speech, dis equilibrium, dizziness, focal weakness, headache(s), numbness, paresthesias, seizure-like activity, seizures, syncope, tingling, tremor(s) or other Psychiatric Psychiatric: Denies anxiety, depression, homicidal ideation, suicidal ideation or other Endocrine Endocrinology: Denies change in body appearance, cold intolerance, excessive sweating, heat intolerance, polydipsia, polyuria or other Hematologic/Lymphatic Hematologic/Lymphatic: Denies anemia, easy bleeding, easy bruising, lymphadenopathy or other Vital Signs Vital Signs Vital Signs: 08/14/23 12:03 08/14/23 14:02 Temperature 97.8 F Temperature Source Oral Pulse Rate 93 68 Respiratory Rate 18 15 Blood Pressure 107/74 147/109 H Blood Pressure Mean 85 121 Pulse Ox 97 94 Oxygen Delivery Method Room Air Weight Weight: 154 lb 1.65 oz Body Mass Index (BMI) 24.8 Physical Exam Const alert, oriented x3 and no apparent distress Constitutional Narrative: Malnourished, hard of hearing HEENT normocephalic HEENT Narrative: Edentulous Neck no lymphadenopathy Resp normal respiratory effort and no retractions Auscultation: Negative for rales, rhonchi or wheezes GI normal to inspection, nondistended, normoactive bowel sounds Extremity Extremity Narrative: Pain over swelling on the left leg. The swelling is nonerythematous. Neuro oriented x3 Sensorium / Orientation: awake and alert Psych affect normal Results Medical Records Data Attestation: I reviewed the patient's medical records Lab / Micro Data Attestation: I reviewed the patient's lab results. Lab results narrative: Leukocytosis, calcium 13.6 with albumin of 2.9, creatinine 3.9, BUN 75. 08/14/23 12:16 08/14/23 12:16 Labs: Laboratory Results - last 24 hr 08/14/23 12:16: WBC 17.9 H, RBC 3.99 L, Hgb 12.0 L, Hct 37.2 L, MCV 93.2, MCH 30.1, MCHC 32.3, RDW Std Deviation 44.2 H, RDW Coeff of German 12.9, Plt Count 254, MPV 9.8, Immature Gran % (Auto) 0.500, Neut % (Auto) 86.8 H, Lymph % (Auto) 4.0 L, Hayes % (Auto) 6.7, Eos % (Auto) 1.8, Baso % (Auto) 0.2, Absolute Neuts (auto) 15.5 H, Absolute Lymphs (auto) 0.72 L, Nucleated RBC % 0, Sodium 138, Potassium 4.4, Chloride 109 H, Carbon Dioxide 21.0, Anion Gap 8, BUN 75 H, Creatinine 3.93 H, Estim Creat Clear Calc 11.95, Est GFR (MDRD) Af Amer 19 L, Est GFR (MDRD) Non-Af 16 L, BUN/Creatinine Ratio 19.1, Glucose 98, Calcium 13.6 H*, Total Bilirubin 0.60, AST 27, ALT 35, Alkaline Phosphatase 94, Total Creatine Kinase 87, Total Protein 6.6, Albumin 2.9 L, Globulin 3.7, Albumin/Globulin Ratio 0.8 L Micro: Microbiology 08/14/23 13:42 Mucosa - Nose SARS-CoV-2, Influenza & RSV (PCR) - Final Imaging Radiology Impression Chest X-Ray 08/14/23 13:50 IMPRESSION: Right lower lobe mass. Recommend CT chest with IV can better evaluate. Small right pleural effusion. Electronically Signed: Aj Cueva MD at 14:23 EDT , Assessment & Plan Assessment/Plan (1) History of malignant neoplasm of oral cavity: (2) HEIDI (acute kidney injury): PLAN: Plan 88-year-old man with prior history of squamous cell carcinoma of mandible, hypertension hypothyroidism, CKD stage IV presents to the ED with concerns regarding worsening fatigue and was found to have moderate hypercalcemia, HEIDI on CKD, leukocytosis. Chest x-ray is concerning for right lower lobe mass with right-sided pleural effusion. 1. Hypercalcemia: This contributing to his dehydration and possibly his present symptoms. Given his prior history of malignancy and recently diagnosed recently seen right lobe mass this is likely hypercalcemia of malignancy. -IV normal saline 1 L -Condom catheter for monitoring urine output -Close monitoring of BUN/creatinine, calcium levels -Will start him on normal saline with 100 cc/h after completion of 2 L [first liter was provided in the ED] -Plan to start IV Lasix 20 mg tomorrow after rehydrating -If no improvement in calcium levels will consider calcitonin 2. Lung mass: Given the prior history of cancer, presentation with hypercalcemia at this time, the likely differentials include malignancy but could be aspiration pneumonia [leukocytosis, dysphagia with swallow]. Not requiring any oxygen support at this time. For further characterization of mass CT chest with IV contrast is preferred will wait till his prerenal HEIDI improves. -Start IV Unasyn for suspected pneumonia -Bronchopulmonary hygiene -CT with IV contrast after the HEIDI improves 3. HEIDI on CKD:Elevated BUN and creatinine levels in the setting of dehydration and hypercalcemia. This likely related to prerenal HEIDI. -IV fluids as above -Close BMP monitoring -Input output monitoring 4. Dysphagia on swallowing: The presentation is concerning for oropharyngeal dysphagia as there is associated coughing and regurgitation with its follow-up. Given his prior history of mandibular resection this could be related to the same. Will get a modified barium swallow to characterize further -Modified barium swallow -Speech language pathology consult 5. Poorly differentiated SCC involving right buccal mucosa, mandible, floor of mouth: He underwent right composite resection (mandible, floor of mouth, and overlying soft tissues), excision of right buccal region, right selective neck dissection levels 1 through 4, and mandibular reconstruction with plate. He also underwent left osteocutaneous fibular free flap reconstruction with microvascular anastomosis, split thickness skin graft to left lower extremity, and removal of all remaining teeth. Received 6000 cGy delivered to tumor bed and dissected right neck and 5400 cGy delivered to the left neck levels 2 through 4, right neck level 5, and bilateral supraclavicular region. - Last seen by radiation oncology Dr. Guerra on 06/20/2023 no further treatment was being planned 6. Hypertension: Continue losartan 20 mg as home medication 7. Hypothyroidism: Check TSH tomorrow, continue home dose 8. Swelling over left leg: Ultrasound to evaluate further 9. DVT: High risk, enoxaparin starting today
[2023-08-14 15:09] VITALS: BP 169/88; PULSE 77; RESP 23; TEMP 36.6; O2SAT 98
[2023-08-14 15:10] VITALS: BP 169/88; PULSE 90; RESP 17; TEMP 36.6; O2SAT 98
[2023-08-14 15:34] VITALS: BMI 22.6
[2023-08-14 15:35] VITALS: BP 154/86; PULSE 93; RESP 18; TEMP 36.8; O2SAT 97
[2023-08-14] MEDS: Ampicillin/Sulbactam 3 GM in 0.9% Normal Saline (100mL MB+) 100 ML IV (16:07)
[2023-08-14] MEDS: Enoxaparin 30 MG/0.3 ML Syringe SC (17:37)
[2023-08-14 22:32] VITALS: BP 155/81; PULSE 90; RESP 16; TEMP 37.1; O2SAT 96
[2023-08-15 03:32] VITALS: BP 146/81; PULSE 85; RESP 14; TEMP 35.9; O2SAT 100
[2023-08-15 06:03] LABS: Absolute Lymphocyte Count 0.54 X10^3/uL (0.83-4.51); Absolute Neutrophil Count 15.6 X10^3/uL (2.0-7.7); Basophil# 0.04 X10^3/uL; Basophil% 0.2 % (0-1); Eosinophil# 0.14 X10^3/uL; Eosinophils% 0.8 % (0-5); Hematocrit 34.2 % (40-54); Hemoglobin 10.7 g/dL (13.0-16.5); Lymphocyte # 0.54 X10^3/ul (0.83-4.51); Lymphocyte % 3.1 % (19-41); Mean Corp Hgb Conc 31.3 g/dL (32-36); Mean Corpuscular Hgb 29.1 pg (27.0-32.0); Mean Corpuscular Volume 92.9 fL (80-94); Mean Platelet Vol. 9.3 fl (6.2-12.0); Monocyte# 1.13 X10^3/uL; Monocyte% 6.4 % (0-10); NRBC Flagged by Analyzer 0 % (0-5); Neutrophil # 15.57 X10^3/uL (2.7-7.7); Neutrophil % 88.8 % (47-70); POSITIVE DIFFERENTIAL YES; Platelet Count 244 K/mm3 (150-450); RBC Distribution Width CV 12.8 % (11.6-14.6); RBC Distribution Width SD 43.4 fl (35.1-43.9); Red Blood Count 3.68 M/mm3 (4.6-6.2); White Blood Count 17.6 K/mm3 (4.4-11.0)
[2023-08-15 06:26] LABS: International Normalized Ratio 1.2; Prothrombin Time (Protime)PT. 15.6 SECONDS (11.7-14.9)
[2023-08-15] MEDS: Levothyroxine 125 MCG Tablet PO (06:32)
[2023-08-15 06:45] LABS: ALB/GLOB Ratio 0.8 RATIO (0.9-2.4); AST(SGOT) 25 U/L (15-37); Alanine Aminotransfer ALT/SGPT 28 U/L (16-61); Albumin, Serum 2.6 g/dL (3.2-5.0); Alkaline Phosphatase 82 U/L (45-117); Anion Gap 7 (5-15); BUN 66 mg/dL (7-18); BUN/Creat Ratio 18.8 RATIO (10-20); Bilirubin, Direct 0.38 mg/dL (0.00-0.30); Calcium,Total 12.7 mg/dL (8.5-10.1); Chloride 116 mmol/L (98-107); Creatinine, Serum 3.51 mg/dL (0.70-1.30); EST Glomerular Filtration Rate 18 mL/min (>60); Est Glom Filt Rate - Afr Amer 21 mL/min (>60); Estimated Creatinine Clearance 13.32 ml/min; Globulin 3.3 g/dL (2.2-4.2); Glucose 95 mg/dL (74-106); Magnesium 2.6 mg/dL (1.6-2.6); Phosphorus 4.8 mg/dL (2.5-4.9); Potassium 4.2 mmol/L (3.5-5.1); Protein, Total 5.9 g/dL (6.4-8.2); Sodium Level 143 mmol/L (136-145); Thyroid Stim Hormone (TSH) 3.47 uIU/mL (0.358-3.74)
--- NOTE | 2023-08-15 08:02 | CT_ITS ---
STUDY: CT CHEST WITHOUT CONTRAST REASON FOR EXAM: Male, 88 years old. RLL Lung mass RADIATION DOSAGE (If Supplied By Facility): CTDIvol = ( 6.23 ) mGy, DLP = ( 165.32 ) mGycm TECHNIQUE: Transaxial imaging was performed without the administration of intravenous contrast material. Multiplanar coronal and sagittal images were reformatted. Individualized dose optimization techniques were used for this CT. COMPARISON: Comparison is made with prior chest radiograph dated August 14, 2023. FINDINGS: CHEST There is a 5 cm x 7 cm mass in the right lower lobe corresponding to the radiographic findings. Increased linear markings are seen in both lungs suggestive of interstitial fibrosis. Tiny noncalcified nodules are seen in the left upper lobe. Tiny noncalcified nodule also seen in the right upper lobe. Possible metastasis should be ruled out. There is no demonstrated pleural abnormality. There are calcifications of the coronary arteries. There are multiple small lymph nodes within the mediastinum, which are normal in size and morphology most compatible with reactive lymph hyperplasia. Normal hilar regions. Normal unenhanced pulmonary arteries. There is atherosclerotic calcification of the aortic arch. There are multi-level degenerative changes of the thoracic spine. Increased kyphosis. There is no demonstrated abnormality of the visualized upper abdomen. CT/Chest without Contrast IMPRESSION: 5 cm x 7 cm mass in the right lower lobe. A neoplastic process should be ruled out. Tiny bilateral noncalcified lung nodules. Metastatic disease should be considered. Findings suggestive of scarring. Electronically Signed: Doug Bender MD at 9:18 EDT ,
[2023-08-15 08:26] LABS: Ionized Calcium 6.65 mg/dL (4.36-5.20)
[2023-08-15 09:12] VITALS: BP 147/77; PULSE 70; RESP 18; TEMP 36.4; O2SAT 99
[2023-08-15] MEDS: Calcitonin 400 UNITS/2 ML Vial 260 UNITS SC ×2 (09:30→21:27)
[2023-08-15] MEDS: Enoxaparin 30 MG/0.3 ML Syringe SC (09:32)
[2023-08-15] MEDS: 0.9% Normal Saline (1000mL) 1,000 ML 100 ML IV ×2 (09:32→20:01)
[2023-08-15] MEDS: Ampicillin/Sulbactam 3 GM in 0.9% Normal Saline (100mL MB+) 100 ML IV (09:42)
[2023-08-15] MEDS: 0.9% Saline Lock 10 ML Syringe IV (11:28)
[2023-08-15] MEDS: Pamidronate Disodium 90 MG in 0.9% Normal Saline (1000mL) 1,000 ML 333 MG IV (11:38)
--- NOTE | 2023-08-15 11:55 | CASEMGMT ---
RN CM Face to Face with patient for initial transition planning/care coordination assessment. RN CM introduced self and role at [facility]. Patient sitting in chair, alert and oriented, family at bedside. Patient willing to participate in assessment and is able to answer all questions appropriately. Care providers, pharmacy, and demographics verified. PCP: [facility] Specialists: Mari, Oncologist; Danielle, powder coater Preferred Pharmacy: [facility] Insurance: MCR, Prescription Benefit: yes Living Will/HPOA: no, intrested in completing, SW notified LNOK: , daughters Living Arrangements: Patient lives with and daughter in a single story home with 3 steps and railing or ramp to enter the home. Patient was independent at home until recent illness. Transportation: self, daughters DME/HHC: [employer] has shower chair, BSC, raised toilet, cane, walker, grab bars, rollator, wheelchair, and pulse ox at home. No previous HHC or SNF Patient wishes to discharge home, may benefit from SNF or HHC at discharge. Will monitor progress with therapy. Patient states he has no further needs or concerns at this time. CM to follow for discharge planning needs that may arise. Disposition Plan: TBD, anticipate HHC vs SNF pending course of treatment and progress with therapy. Lanny AGUILAR, RN, CM
--- NOTE | 2023-08-15 15:53 | EX.PCM.CONCC ---
Assessment & Plan Assessment/Plan (1) Hypercalcemia: (2) Right lower lobe lung mass: PLAN: Plan RECOMMENDATIONS: 1. Continue therapy for hypercalcemia 2. Okay to arrange for CT-guided biopsy 3. Probable heme-onc consult pending results 4. Not necessary to keep hospitalized until biopsy results available 5. Possibly obtain a complete PFT/PET scan as an outpatient IMPRESSIONS: 1. 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 Patient is receiving IV fluids, bisphosphonate and calcitonin. Clinical suspicion is leg weakness is secondary to hypercalcemia. GI symptoms may also be from hypercalcemia. 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 2. 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 Unclear if this is metastasis versus a second primary. Patient would be a marginal treatment. Patient may have an element of postobstructive pneumonia and is on Unasyn. Did discuss about bronchoscopy versus CT-guided biopsy. After review the risks, benefits alternatives, patient will proceed with a CT-guided biopsy. Unclear what treatment options would be available to the patient. Given concomitant infectious concerns, accuracy of PET scan would be questionable. Anticipate at least stage II disease. High clinical suspicion for malignancy given paraneoplastic and size of lesion. Long-term prognosis is extremely guarded. 3. Metabolic encephalopathy secondary to hypercalcemia versus dementia Patient reportedly does have issues with memory at baseline. Patient does have some tangential thoughts at this time. Would avoid benzodiazepines if possible. Continue with delirium protocol. 4. 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 Patient has been receiving aggressive hydration secondary to problem #1. Patient's losartan is currently on hold. Could reassess on continuation once hypercalcemia addressed. Patient may benefit from Lasix and will need to follow I's and O's closely. 5. Advanced age/BPH/frailty Complicates care, management, recovery and prognosis. Therapy has been working with the patient, but high clinical suspicion that he will require placement of patient wishes to remain aggressive. Continue to monitor urine output closely. Over 35 minutes was spent in conjunction with Dr. Boo talking to the family about goals of therapy. HPI Consult Data Date of Consult: 08/15/23 HPI Narrative Reason for Consultation: Lung mass HPI Narrative: DANISHA MOTA is an 88 M, with past medical history listed below, who presents to [facility] on 08/14/2023 secondary to nausea, vomiting and diarrhea. Patient reportedly was brought in by his family secondary concerns for dehydration. Patient was reportedly very weak and unable to ambulate for approximately a week. Patient has been reporting some loose watery stools and decreased appetite. Patient reportedly had anorexia, but no fevers or reported nausea. Patient had not complained of chest pain or abdominal pain and the family did not report much cough. Patient's urine output was decreased, so was brought in for evaluation. In the ER, patient was afebrile, but hypertensive at 147/109. Patient was saturating well on room air. Laboratory workup showed a white blood cell count of 17.9, hemoglobin of 12 and a platelet count of 254. Chemistry showed an elevated BUN of 75 and a creatinine of 3.9. Calcium was elevated at 13.6 and LFTs were relatively unremarkable. Chest x-ray showed a right lower lobe mass and a small pleural effusion. Patient was admitted to the floor for further evaluation. Since being on the floor, patient did have a CT scan of the chest showing a 5 x 7 cm mass in the right lower lobe and bilateral noncalcified lung nodules. Patient was evaluated with family at the bedside. Family reportedly stated the patient has had difficulty with ambulation for almost a week. Patient does have a history of previous cancer and follows with Dr. Guerra. Patient reportedly had refused chemotherapy in the past. Unable to obtain a review of systems secondary to patient confusion. Extensive conversation with the family at the bedside with Dr. Boo concerning CODE STATUS and wishes as far as working up cancer. Family did state that they would be agreeable to DNR/DNI, but do want to move forward with the biopsy. [facility] Medical History Benign bladder mass Inguinal hernia Squamous cell carcinoma of oral cavity Stage 4 chronic kidney disease Venous insufficiency VTE (venous thromboembolism) Home Medications losartan 25 mg tablet 25 mg PO DAILY 06/20/23 [History Last Taken 08/14/23] levothyroxine 125 mcg tablet (Synthroid) 125 mcg PO DAILY 08/14/23 [History Last Taken 08/14/23] Allergy/AdvReac Type Severity Reaction Status Date / Time polymyxin B Allergy Swelling Verified 06/20/23 13:02 Family History Brother Rectal cancer Prostate CA Mesothelioma Daughter Colon cancer Surgical History History of tonsillectomy Social History Smoking Status: Never smoker ROS Review of Systems ROS Unobtainable: due to mental status Physical Exam Const alert and no apparent distress Constitutional Narrative: Malnourished, hard of hearing HEENT normocephalic HEENT Narrative: Edentulous no dentures in place Eyes PERRL and EOMs intact bilaterally Neck no lymphadenopathy Resp Resp Narrative: More diminished in the right lung base Auscultation: Negative for rales, rhonchi or wheezes Cardio regular rate, regular rhythm, S1 normal heart sound, S2 normal heart sound, no murmurs, no rub and no gallops GI normal to inspection, nondistended, normoactive bowel sounds Extremity General Extremity: Negative for edema Skin no rashes or lesions noted Neuro Sensorium / Orientation: awake and alert Psych Psych Narrative: Tangential speech noted Mood & Affect: flat affect Lab / Micro Data 08/15/23 05:45 08/15/23 05:45 Labs: Laboratory Results - last 24 hr 08/15/23 05:45: WBC 17.6 H, RBC 3.68 L, Hgb 10.7 L, Hct 34.2 L, MCV 92.9, MCH 29.1, MCHC 31.3 L, RDW Std Deviation 43.4, RDW Coeff of German 12.8, Plt Count 244, MPV 9.3, Immature Gran % (Auto) 0.700, Neut % (Auto) 88.8 H, Lymph % (Auto) 3.1 L, Emmet % (Auto) 6.4, Eos % (Auto) 0.8, Baso % (Auto) 0.2, Absolute Neuts (auto) 15.6 H, Absolute Lymphs (auto) 0.54 L, Nucleated RBC % 0, PT 15.6 H, INR 1.2, Sodium 143, Potassium 4.2, Chloride 116 H, Carbon Dioxide 20.0 L, Anion Gap 7, BUN 66 H, Creatinine 3.51 H, Estim Creat Clear Calc 13.32, Est GFR (MDRD) Af Amer 21 L, Est GFR (MDRD) Non-Af 18 L, BUN/Creatinine Ratio 18.8, Glucose 95, Calcium 12.7 H*, Phosphorus 4.8, Magnesium 2.6, Total Bilirubin 0.70, Direct Bilirubin 0.38 H, AST 25, ALT 28, Alkaline Phosphatase 82, Total Protein 5.9 L, Albumin 2.6 L, Globulin 3.3, Albumin/Globulin Ratio 0.8 L, TSH 3.47 08/15/23 08:21: Ionized Calcium 6.65 H Micro: Microbiology 08/14/23 13:42 Mucosa - Nose SARS-CoV-2, Influenza & RSV (PCR) - Final Imaging Radiology Impression Chest CT 08/15/23 08:02 IMPRESSION: 5 cm x 7 cm mass in the right lower lobe. A neoplastic process should be ruled out. Tiny bilateral noncalcified lung nodules. Metastatic disease should be considered. Findings suggestive of scarring. Electronically Signed: Doug Bender MD at 9:18 EDT , Charges/Coding Visit Charges Inpatient E&M: 74922 Init Hosp L3
[2023-08-15 18:19] VITALS: BP 156/85; PULSE 88; RESP 16; TEMP 36.6; O2SAT 96
--- NOTE | 2023-08-15 18:39 | PCM.PN.HOSP ---
Reason for Visit Reason for Visit: Generalized weakness/confusion Subjective Subjective Mr. Reyez is AN 88-year-old white male who presented to the emergency department [facility] on 08/14/2023 due to progressive weakness and intermittent confusion. 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 His family reports that he has had progressively work at [employer] since about August 05. He has had decreased energy and vitality. They indicated he was getting tired quickly after walking just a few steps and there have been occasions that he had to sit down on the ground while walking and crawled back to bed or a chair. It has been taking more more people to help him at home and his oral intake had declined significantly. He has had no changes in his bowel function and family has been taking care of much of his ADLs. They also were concerned that he was having some dysphagia with solid foods with instant coughing and regurgitation of food while eating. At baseline he is on a mechanical soft diet due to being edentulous and his history of radiation therapy. Vital signs on presentation were overtly unremarkable. His CBC showed a leukocytosis with a white count of 17.9 and an anemia with a hemoglobin of 12.0. Recent baseline hemoglobin is unclear as we have not had any labs on him since January however his hemoglobin at that time was 14.3. He appeared to be markedly dehydrated on presentation having a BUN of 75 and a serum creatinine of 3.93. Baseline creatinine appears to run between 2.2 and 2.5. His calcium was noted to be markedly elevated at 13.6 with an ionized calcium of 6.65. Chest x-ray was obtained and showed a right lower lobe mass with a small right pleural effusion. I did obtain a CT of the chest which also showed a right lower lobe mass that is 5 x 7 cm. Patient remains somewhat confused. Family is at bedside and there seems to be some discrepancy whether he is his baseline currently. We had extensive conversation with regards to the findings on CT and options for management with 1 being biopsy to identify the pathology of this being highly suspicious of malignancy with paraneoplastic syndrome versus hospice. Family has elected to proceed with biopsy for now. We also extensively discussed CODE STATUS as he was initially a full code and at this point based on the patient's input along with the food family's decision we will transition him to DNR CCA with no intubation. Objective Data Objective Data Vital Signs: Vital Signs Temp Pulse Resp BP Pulse Ox O2 Del Method 97.9 F 88 16 156/85 H 96 Room Air 08/15/23 18:19 08/15/23 18:19 08/15/23 18:19 08/15/23 18:19 08/15/23 18:19 08/15/23 18:19 Oxygen Delivery Method Room Air Weight: 63.5 kg Body Mass Index (BMI) 22.6 Intake & Output: Intake and Output for Last 24 Hours 08/13/23 08/14/23 08/15/23 23:59 23:59 23:59 Intake Total 2452 / 2452 1152 / 1152 Output Total 300 / 300 1900 / 1900 Balance 2152 / 2152 -748 / -748 Medical Nutrition Assessment Dietitian: Malnutrition Criteria Met Start: 08/15/23 16:14 Freq: Status: Active Protocol: Document 08/15/23 16:14 LO (Rec: 08/15/23 16:14 LO [id number]) Nutrition Malnutrition Evidence of Malnutrition Exists Yes Malnutrition (severe): Chronic Evidenced By Suboptimal Energy Intake ( Severe),Weight Loss (Severe) Clinical Problem Chronic Disease or Condition Related Malnutrition Etiology severe related to suboptimal appetite Signs/Symptoms as evidenced by <75% PO intake of estimated needs for >1 month and 23lbs (14.1%) weight loss in 2 months Status Active Problem Recommendation Dietitian Recommendations/Changes ADAT to Regular with texture/ consistency per HOG SCRAPER. RD will change EPHP supplements to 4x daily with medpass Lab / Micro Data 08/15/23 05:45 08/15/23 05:45 Labs: Laboratory Results - last 24 hr 08/15/23 05:45: WBC 17.6 H, RBC 3.68 L, Hgb 10.7 L, Hct 34.2 L, MCV 92.9, MCH 29.1, MCHC 31.3 L, RDW Std Deviation 43.4, RDW Coeff of German 12.8, Plt Count 244, MPV 9.3, Immature Gran % (Auto) 0.700, Neut % (Auto) 88.8 H, Lymph % (Auto) 3.1 L, [place] % (Auto) 6.4, Eos % (Auto) 0.8, Baso % (Auto) 0.2, Absolute Neuts (auto) 15.6 H, Absolute Lymphs (auto) 0.54 L, Nucleated RBC % 0, PT 15.6 H, INR 1.2, Sodium 143, Potassium 4.2, Chloride 116 H, Carbon Dioxide 20.0 L, Anion Gap 7, BUN 66 H, Creatinine 3.51 H, Estim Creat Clear Calc 13.32, Est GFR (MDRD) Af Amer 21 L, Est GFR (MDRD) Non-Af 18 L, BUN/Creatinine Ratio 18.8, Glucose 95, Calcium 12.7 H*, Phosphorus 4.8, Magnesium 2.6, Total Bilirubin 0.70, Direct Bilirubin 0.38 H, AST 25, ALT 28, Alkaline Phosphatase 82, Total Protein 5.9 L, Albumin 2.6 L, Globulin 3.3, Albumin/Globulin Ratio 0.8 L, TSH 3.47 08/15/23 08:21: Ionized Calcium 6.65 H Micro: Microbiology 08/14/23 13:42 Mucosa - Nose SARS-CoV-2, Influenza & RSV (PCR) - Final Radiography Diagnostic Testing: Radiology Impression Chest CT 08/15/23 08:02 IMPRESSION: 5 cm x 7 cm mass in the right lower lobe. A neoplastic process should be ruled out. Tiny bilateral noncalcified lung nodules. Metastatic disease should be considered. Findings suggestive of scarring. Electronically Signed: Doug Bender MD at 9:18 EDT Reading Location ID and State: [address] [place] [address] , Service support , Physical Exam Const alert and no apparent distress; Negative for average body habitus, healthy appearing or well nourished Constitutional Narrative: Thin, elderly, white male, sitting up in a chair at the bedside, and 2 daughters at the bedside, appears chronically ill and speech is garbled at baseline due to his history of head neck cancer HEENT head/scalp atraumatic HEENT Narrative: Mucous membranes are dry due to history of head neck cancer, patient is a dentulous, Mallampati 1 Head and Scalp: normocephalic Eyes PERRL, EOMs intact bilaterally and conjunctivae normal Eyes Narrative: No scleral icterus Neck no lymphadenopathy and supple Neck Narrative: Trachea midline, no thyroid enlargement, some neck abnormalities on right due to previous surgery and radiation Resp normal respiratory effort, no retractions, no use of accessory muscles and clear to auscultation bilaterally Resp Narrative: Diffusely diminished with no adventitious sounds noted Auscultation: Negative for rales, rhonchi or wheezes Cardio regular rate, regular rhythm, S1 normal heart sound, S2 normal heart sound, no murmurs, no rub, no gallops and no clicks GI normal to inspection, nondistended, normoactive bowel sounds, soft to palpation and non-tender Extremity no clubbing, cyanosis or edema Extremity Narrative: Pedal pulses are 2+ Neuro No oriented x3, moves all extremities and no focal motor deficits Neuro Narrative: Speech is garbled, significant generalized weakness noted Sensorium / Orientation: awake, alert, oriented to person and oriented to place; Negative for oriented to time Speech: Negative for speech normal Psych affect normal Psych Narrative: Pleasant, eye contact is good and patient does interact however answers are not always appropriate for questions Assessment & Plan Assessment/Plan (1) Right lower lobe lung mass: (2) Hypercalcemia: (3) HEIDI (acute kidney injury): (4) Anemia: (5) Leukocytosis: (6) Generalized weakness: (7) Toxic metabolic encephalopathy: PLAN: Plan Acute hypercalcemia -Calcium was normal in January -Ionized calcium is 6.65--> repeat in a.m. 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 Right lower lobe lung mass -Highly suspicious of malignancy -Family wants to pursue CT-guided biopsy which will be performed tomorrow -Will need to await pathology for further recommendations -Pulmonary medicine is following -Will need outpatient PET scan and oncology follow-up after discharge -Unclear at this point if family and patient would like to pursue chemotherapy after results are identified and will need further discussion with oncology Toxic/metabolic encephalopathy -Likely related to severe hypercalcemia -Family states he is improving however not yet at baseline -Continue to treat hypercalcemia and monitor clinically Suspected aspiration pneumonia -Continue Unasyn -Speech therapy is following -Plan is for MBS tomorrow -Continue I-S and Acapella HEIDI on CKD Stage IV -Baseline serum creatinine seems to run between 2.2 and 2.5 next-3.93 on admission -Slowly trending down and is now 3.51 -Repeat lab in a.m. -Avoid nephrotoxins -Hold losartan -Continue IV fluids Acute anemia -Recent baseline is unknown however it was normal at 14.3 in January -Suspect that his hemoglobin will trend down with IV fluids -Check iron studies and Hemoccult stool Severe malnutrition -Dietitian following -Supplements added -Appreciate dietitian assistance Leukocytosis -May be related to dehydration but also consideration for aspiration pneumonia -Patient not able to produce sputum -Continue Unasyn Open repeat CBC in a.m. 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 -Status post radiation from 12/04/2018 through 01/12/2019 and right neck dissection with direct radiation delivered to the tumor bed during surgery -Recent appointment with radiation oncology showed no recurrence of disease on exam -Unclear if this mass in his chest is metastatic disease versus new primary malignancy -Biopsy pending tomorrow Hypothyroidism -Continue home levothyroxine Hypertension -Hold home losartan -Continue to monitor blood pressure and will start as needed if needed DVT prophylaxis -SCDs with chemoprophylaxis on hold due to biopsy tomorrow CODE STATUS -DNR CCA with no to patient per extensive conversation today Charges/Coding Visit Charges Inpatient E&M: 17211 Subs Hosp L3 Procedures Hospitalists Procedures: 38554 Advncd Care Plan 30 Min
[2023-08-15 19:38] LABS: Platelet Count 243 K/mm3 (150-450); RET-HE 31.3 pg (30-35)
[2023-08-15 20:10] LABS: Ferritin 765 ng/mL (26-388); Iron 19 ug/dL (65-175); Iron Binding Capacity,Total 189 ug/dL (250-450); PERCENT IRON SATURATION 10.1 % (15.0-55.0)
[2023-08-16] VITALS (21 sets, daily range): BP systolic 80–163; BP diastolic 30–101; PULSE 72–104; RESP 13–20; TEMP 36.1–36.7; O2SAT 94–98
--- NOTE | 2023-08-16 | IMM_PTH ---
PATIENT: DANISHA MOTA LOC: [facility] U#:[id number] AGE/SX: 88/M ROOM: [facility] RE08/14/[address]: Dr. Marily Boo DO : 1935 BED: 1 DIS: 08/19/2023 SPEC #: [id number] RECD: 08/16/23 10:38 STATUS: SOUTravon REQ #: [id number] DINO: 08/16/23 00:[address]: Marily Boo DEPT: IMMUNOHISTOCHEMISTRY RECD BY: Tommie Irwin ENTERED: 08/16/23 10:40 SP TYPE: IMMUNO OTHR DR: MD Dr. Zaira Adams MD Dr. Bruce Arthur, MD Dr. Derek Brown, DO Dr. Gautam Baskaran, MD Dr. Yordanos Habtegebriel, MD Dr. Hemant Dand, MD Dr. Kimber Foust, MD Dr. Lamia Aljundi, MD Dr. Pavan Irukulla, MD Dr. Saad Farooqi, MD Dr. Vikram Anand, MD Dr. Victor Velasquez, MD Dr. William Haden, MD Tissues: Lung, NOS Procedures: RCC (add) NAPSIN A (add) CK20 (add) CK5-6 (add) CK7 (add) CK8 (add) HEP PAR (add) TTF1 (add) Pankeratin (initial) P40 (add) PSAP (add) PHYSICIAN & INSTITUTION [address] [address] SPECIMEN INFORMATION: Tissue Source: Ct guided lung biopsy Clinical Info: Right lower lobe lung CT core biopsy Specimen Number: [id number] CPT code: 82993 METHODOLOGY: Deparaffinized sections of prefer/formalin-fixed tissue or PAP/DQ stained slides are incubated with monoclonal/polyclonal antibodies/oligonucleotide probes. Localization is made via biotin free immunoperoxidase method. Appropriate controls are performed and reacted as expected. Results on target cell population are indicated in the following table: RESULTS: ANTIBODY / CLONE RESULT AE1-3 (AE1/AE3/PCK26) positive CK7 (OV-TL12/30) negative CK8 (55koxjC21) negative CK20 (KS20.8) negative TTF-1 (8G7G3/1) negative Napsin A (Rabbit Polyclonal) negative HepPar (OCh1E5) negative RCC (PN-15) negative PSAP (PASE/4LJ) negative CK5-6 (D5 & 1684) positive P40 (BC28) positive These tests were developed and their performance characteristics determined by [facility]. They may not have been cleared or approved by the U.S. Food and Drug Administration. The FDA has determined that such clearance or approval is not necessary. The above immunohistochemical/dualISH markers are ordered and reviewed by the Pathologist. INTERPRETATION: CT guided lung core, biopsy; Poorly differentiated non-small cell carcinoma, favor squamous cell carcinoma. SJ/mr 08/17/2023
[2023-08-16] MEDS: hydrALAZINE 20 MG/ML Vial 10 MG IV (03:50)
[2023-08-16] MEDS: 0.9% Normal Saline (1000mL) 1,000 ML 100 ML IV (05:11)
--- NOTE | 2023-08-16 05:31 | NURSING ---
PT RECHECK BP FROM 399 IS 118/64
[2023-08-16 07:06] LABS: Absolute Lymphocyte Count 0.55 X10^3/uL (0.83-4.51); Basophil# 0.04 X10^3/uL; Basophil% 0.2 % (0-1); Eosinophil# 0.21 X10^3/uL; Hematocrit 32.9 % (40-54); Hemoglobin 10.5 g/dL (13.0-16.5); Lymphocyte # 0.55 X10^3/ul (0.83-4.51); Lymphocyte % 2.6 % (19-41); Mean Corp Hgb Conc 31.9 g/dL (32-36); Mean Corpuscular Hgb 29.4 pg (27.0-32.0); Mean Corpuscular Volume 92.2 fL (80-94); Mean Platelet Vol. 9.4 fl (6.2-12.0); Monocyte% 5.7 % (0-10); NRBC Flagged by Analyzer 0 % (0-5); Neutrophil # 18.95 X10^3/uL (2.7-7.7); Neutrophil % 89.3 % (47-70); POSITIVE DIFFERENTIAL YES; Platelet Count 235 K/mm3 (150-450); RBC Distribution Width SD 43.8 fl (35.1-43.9); Red Blood Count 3.57 M/mm3 (4.6-6.2); White Blood Count 21.2 K/mm3 (4.4-11.0)
--- NOTE | 2023-08-16 07:21 | RAD_ITS ---
STUDY: X-RAY CHEST REASON FOR EXAM: Male, 88 years old. 2 hours post lung biopsy -- 2 hours post lung biopsy TECHNIQUE: AP inspiration and expiration views. COMPARISON: Comparison is made with prior examination done earlier today. FINDINGS: No evidence of pneumothorax on the 2 hour post right lung biopsy radiographs. RAD/Chest Insp/Exp 2 View IMPRESSION: No evidence of pneumothorax on the 2 hour post right lung biopsy radiographs. Electronically Signed: Doug Bender MD at 12:21 EDT ,
[2023-08-16 07:23] LABS: Ionized Calcium 6.12 mg/dL (4.36-5.20)
[2023-08-16 08:02] LABS: ALB/GLOB Ratio 0.8 RATIO (0.9-2.4); AST(SGOT) 22 U/L (15-37); Alanine Aminotransfer ALT/SGPT 24 U/L (16-61); Albumin, Serum 2.5 g/dL (3.2-5.0); Alkaline Phosphatase 87 U/L (45-117); Anion Gap 12 (5-15); BUN 55 mg/dL (7-18); Calcium,Total 11.6 mg/dL (8.5-10.1); Chloride 117 mmol/L (98-107); Creatinine, Serum 3.06 mg/dL (0.70-1.30); EST Glomerular Filtration Rate 21 mL/min (>60); Est Glom Filt Rate - Afr Amer 25 mL/min (>60); Estimated Creatinine Clearance 15.28 ml/min; Globulin 3.1 g/dL (2.2-4.2); Glucose 92 mg/dL (74-106); Magnesium 2.5 mg/dL (1.6-2.6); Phosphorus 3.8 mg/dL (2.5-4.9); Potassium 4.1 mmol/L (3.5-5.1); Protein, Total 5.6 g/dL (6.4-8.2); Sodium Level 147 mmol/L (136-145)
[2023-08-16] MEDS: Midazolam 2 MG/2 ML Syringe IV (09:37)
[2023-08-16] MEDS: fentaNYL 100 MCG/2 ML Ampul IV (09:39)
[2023-08-16] MEDS: Lidocaine 2% (20 ml mdv) 20 ML Vial INFILT (09:53)
--- NOTE | 2023-08-16 10:00 | ASPIGT_PTH ---
PATIENT: DANISHA MOTA LOC: [facility] U#:[id number] AGE/SX: 88/M ROOM: [facility] RE08/14/[address]: Dr. Marily Boo DO : 1935 BED: 1 DIS: 08/19/2023 SPEC #: [id number] RECD: 08/16/23 11:42 STATUS: VICENTE REQ #: [id number] DINO: 08/16/23 10:[address]: Marily Boo DEPT: SURGICAL PATHOLOGY RECD BY: Penny Harmon ENTERED: 08/16/23 11:43 SP TYPE: ASP RAD OTHR DR: MD Dr. Zaira Adams MD Dr. Bruce Arthur, MD Dr. Derek Brown, DO Dr. Gautam Baskaran, MD Dr. Yordanos Habtegebriel, MD Dr. Hemant Dand, MD Dr. Kimber Foust, MD Dr. Lamia Aljundi, MD Dr. Pavan Irukulla, MD Dr. Saad Farooqi, MD Dr. Vikram Anand, MD Dr. Victor Velasquez, MD Dr. William Haden, MD Tissues: Lung, NOS Procedures: FNA Specimen Adequacy Special Stain Group II Surgery Specimen Level IV Imprint (control) HEADER OPERATION: CT guided Right lung biopsy PRE-OP DIAGNOSIS: Right lung mass TISSUE SUBMITTED: Right lung 20 gauge core biopsy x5 MICROSCOPIC DIAGNOSIS Right lung CT guided core biopsy; Poorly differentiated non-small cell carcinoma, favor squamous cell carcinoma. See comment. SJ/mr 08/17/2023 COMMENT The specimen is evaluated at the time of biopsy by Dr. Solo. Immediate Evaluation = Malignant cells present derived from non-small cell carcinoma. Tumor necrosis is also noted. Immunohistochemistry ([id number]) supports the above diagnosis. Molecular studies on the tumor can be performed if clinically indicated. Please notify the laboratory if they are needed. Case has been reviewed in consultation with Dr. Ahuja who concurs with the above diagnosis. IDC:AM MICROSCOPIC DESCRIPTION Slides are reviewed. GROSS DESCRIPTION Received in fixative is one container labeled with the patient's name and designated Right lung mass. The specimen consists of multiple irregular fragments of gonzalez soft tissue that in aggregate measure 1.5 x 0.1 x <0.1 cm. The specimen is totally submitted in one cassette. The entire specimen is submitted in one cassette. Two touch imprints are prepared at the time of core biopsy. ROMY/ 08/16/2023 TC:0 CPT: 42837,68880
--- NOTE | 2023-08-16 10:10 | RAD_ITS ---
STUDY: X-RAY CHEST REASON FOR EXAM: Male, 88 years old. Immediately post lung biopsy -- Immediately post lung biopsy TECHNIQUE: AP inspiration and expiration views. COMPARISON: Comparison is made with prior study dated August 14, 2023. FINDINGS: No evidence of pneumothorax on the immediate post right lung biopsy radiographs. RAD/Chest Insp/Exp 2 View IMPRESSION: No evidence of pneumothorax on the immediate post right lung biopsy radiographs. Electronically Signed: Doug Bender MD at 10:26 EDT ,
--- NOTE | 2023-08-16 10:15 | PRO.PCM_ITS ---
Procedure Report Date of Procedure: 08/16/23 Assessment & Plan Assessment/Plan (1) Right lower lobe lung mass: PLAN: PROCEDURE: CT GUIDED CORE NEEDLE LUNG BIOPSY ORDERING PROVIDER: Dr. Marily Boo INDICATION: Male, 88 years old. Right lower lobe lung mass PROVIDER: OLIVIA Angel CONSENT: Written informed consent was obtained having explained the risks, benefits and alternatives in detail with the patient's and daughters at the patient's bedside who accepted the risks and agreed to proceed. Laboratory review and clinical assessment was performed. PRE-PROCEDURE SEDATION ASSESSMENT: Current history and physical dictated by referring physician and reviewed. No clinical changes since date of exam. Patient has an ASA Class of 2. PROCEDURAL SEDATION PROTOCOL: The Drugs used were: 1 mg Versed, IV, and 25 mcg Fentanyl, IV. The sedation time was: 24 minutes, starting at 9:37 AM and terminated at 10:01 AM. The procedural sedation protocol was independently monitored by the department nurse. RADIATION DOSAGE (If Supplied By Facility): CTDIvol = 11.88 mGy, DLP = 421.73 mGycm Individualized dose optimization techniques were used for this CT. TECHNIQUE: The patient was placed in a prone position. A noncontrast CT was performed to localize the lesion in the right lower lobe. The skin surface was prepped and draped in a sterile fashion. 2% lidocaine was used for local anesthesia. Using CT guidance, a 20-gauge coaxial biopsy device was advanced to the periphery of the lesion. A total of 5 core specimens were obtained. Specimens were microscopically reviewed by pathology in the CT suite and placed in forma barbara solution. BioSentry tract sealant system was deployed at the biopsy site, and the biopsy needle was removed. A sterile occlusive dressing was applied to the biopsy site. The patient tolerated the procedure well. An immediate chest xray was ordered, per protocol. A negative biopsy does not exclude malignancy. Further imaging or clinical followup based on patient condition and degree of clinical suspicion for malignancy. Suggest rebiopsy, if biopsy results do not match with clinical scenario. IMPRESSION: 1. CT directed core needle biopsy of right lower lobe lung mass using CT image guidance with image documentation as described. Pathology results are pending. 2. Procedural Sedation protocol utilized with independent monitoring by the department nurse. Procedures Radiology Radiology CT Procedures: 35475 Biopsy Lung
[2023-08-16] MEDS: 0.45% Normal Saline 1,000 ML 100 ML IV ×2 (11:20→22:06)
[2023-08-16] MEDS: Ampicillin/Sulbactam 3 GM in 0.9% Normal Saline (100mL MB+) 100 ML IV (11:50)
--- NOTE | 2023-08-16 14:01 | PCM.PN.HOSP ---
Reason for Visit Reason for Visit: Generalized weakness/confusion Subjective Subjective No issues overnight. Patient is groggy at the time of my evaluation as he is just had his lung biopsy. Patient states seems to be doing okay and feels that his mentation may be improving. Family at the bedside and discussed overall discharge planning with guards to skilled facility and ongoing care following discharge with regards to his lung mass. Case management and social work to be in later today to discuss further. Objective Data Objective Data Vital Signs: Vital Signs Temp Pulse Resp BP Pulse Ox O2 Del Method 97 F L 72 16 133/72 H 97 Room Air 08/16/23 11:24 08/16/23 11:24 08/16/23 11:24 08/16/23 11:24 08/16/23 11:24 08/16/23 11:24 Oxygen Delivery Method Room Air Weight: 63.5 kg Body Mass Index (BMI) 22.6 Intake & Output: Intake and Output for Last 24 Hours 08/14/23 08/15/23 08/16/23 23:59 23:59 23:59 Intake Total 2452 / 2452 2152 / 2152 1692.00 / 1692.00 Output Total 300 / 300 1900 / 2900 1700 / 1700 Balance 2152 / 215 252 / -748 -8.00 / -8.00 Medical Nutrition Assessment Dietitian: Malnutrition Criteria Met Start: 08/15/23 16:14 Freq: Status: Active Protocol: Document 08/15/23 16:14 LO (Rec: 08/15/23 16:14 [id number]) Nutrition Malnutrition Evidence of Malnutrition Exists Yes Malnutrition (severe): Chronic Evidenced By Suboptimal Energy Intake ( Severe),Weight Loss (Severe) Clinical Problem Chronic Disease or Condition Related Malnutrition Etiology severe related to suboptimal appetite Signs/Symptoms as evidenced by <75% PO intake of estimated needs for >1 month and 23lbs (14.1%) weight loss in 2 months Status Active Problem Recommendation Dietitian Recommendations/Changes ADAT to Regular with texture/ consistency per [employer]. RD will change EPHP supplements to 4x daily with medpass Lab / Micro Data 08/16/23 06:15 08/16/23 06:15 Labs: Laboratory Results - last 24 hr 08/15/23 05:45: Retic Count 0.90, Immature Retic Fraction 5.30, Retic Hgb Equivalent 31.3, Iron 19 L, TIBC 189 L, Iron Saturation 10.1 L, Ferritin 765 H 08/16/23 06:15: WBC 21.2 H, RBC 3.57 L, Hgb 10.5 L, Hct 32.9 L, MCV 92.2, MCH 29.4, MCHC 31.9 L, RDW Std Deviation 43.8, RDW Coeff of German 13.0, Plt Count 235, MPV 9.4, Immature Gran % (Auto) 1.200 H, Neut % (Auto) 89.3 H, Lymph % (Auto) 2.6 L, [place] % (Auto) 5.7, Eos % (Auto) 1.0, Baso % (Auto) 0.2, Absolute Neuts (auto) 19.0 H, Absolute Lymphs (auto) 0.55 L, Nucleated RBC % 0, Sodium 147 H, Potassium 4.1, Chloride 117 H, Carbon Dioxide 18.0 L, Anion Gap 12, BUN 55 H, Creatinine 3.06 H, Estim Creat Clear Calc 15.28, Est GFR (MDRD) Af Amer 25 L, Est GFR (MDRD) Non-Af 21 L, BUN/Creatinine Ratio 18.0, Glucose 92, Calcium 11.6 H, Phosphorus 3.8, Magnesium 2.5, Total Bilirubin 0.80, AST 22, ALT 24, Alkaline Phosphatase 87, Total Protein 5.6 L, Albumin 2.5 L, Globulin 3.1, Albumin/Globulin Ratio 0.8 L 08/16/23 07:18: Ionized Calcium 6.12 H Micro: Microbiology 08/14/23 13:42 Mucosa - Nose SARS-CoV-2, Influenza & RSV (PCR) - Final Radiography Diagnostic Testing: Radiology Impression Chest X-Ray 08/16/23 10:10 IMPRESSION: No evidence of pneumothorax on the immediate post right lung biopsy radiographs. Electronically Signed: Doug Bender MD at 10:26 EDT , Physical Exam Const no apparent distress; Negative for average body habitus, healthy appearing or well nourished Constitutional Narrative: Thin, elderly, white male, lying in bed sleeping and 2 daughters at the bedside, appears chronically ill HEENT normocephalic and head/scalp atraumatic Resp normal respiratory effort, no retractions, no use of accessory muscles and clear to auscultation bilaterally Resp Narrative: Diffusely diminished with no adventitious sounds noted Auscultation: Negative for rales, rhonchi or wheezes Cardio regular rate, regular rhythm, S1 normal heart sound, S2 normal heart sound, no murmurs, no rub, no gallops and no clicks GI normal to inspection, nondistended, normoactive bowel sounds, soft to palpation and non-tender Extremity no clubbing, cyanosis or edema Extremity Narrative: Pedal pulses are 2+ Neuro Neuro Narrative: Patient sleeping soundly Psych Psych Narrative: Patient sleeping Assessment & Plan Assessment/Plan (1) Right lower lobe lung mass: (2) Hypercalcemia: (3) HEIDI (acute kidney injury): (4) Anemia: (5) Leukocytosis: (6) Generalized weakness: (7) Toxic metabolic encephalopathy: PLAN: Plan Acute hypercalcemia -Calcium was normal in January -Ionized calcium is 6.65--> trending down and now 6.12--> repeat in a.m. 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 -Highly suspicious of malignancy -CT-guided biopsy done -Will need to await pathology for further recommendations -Pulmonary medicine is following -Will need outpatient PET scan and oncology follow-up after discharge -Unclear at this point if family and patient would like to pursue chemotherapy after results are identified and will need further discussion with oncology Toxic/metabolic encephalopathy -Likely related to severe hypercalcemia -Family thinks that he continues to improve -Continue to treat hypercalcemia and monitor clinically Leukocytosis -Initially aspiration pneumonia was thought to be the etiology however his white count trends up despite Unasyn -Check UA, check blood cultures, check urine culture, check MRSA PCR -Discontinue Unasyn and start Zosyn -If MRSA PCR is positive will start vancomycin -Repeat CBC in a.m. Suspected dysphagia -Speech therapy is following -Plan is for [facility] tomorrow -Continue I-S and Acapella HEIDI on CKD Stage IV -Baseline serum creatinine seems to run between 2.2 and 2.5 -3.93 on admission -Slowly trending down and is now 3.06 -Repeat lab in a.m. -Avoid nephrotoxins -Hold losartan -Continue IV fluids but transition to half-normal saline Hypernatremia/hyperchloremia -Likely iatrogenic from normal saline -Change IV fluids to half-normal saline at the same rate of 100 cc/h Hyperchloremic metabolic acidosis -IV fluids transition -Repeat lab in a.m. 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 -Status post radiation from 12/04/2018 through 01/12/2019 and right neck dissection with direct radiation delivered to the tumor bed during surgery -Recent appointment with radiation oncology showed no recurrence of disease on exam -Unclear if this mass in his chest is metastatic disease versus new primary malignancy -Biopsy done and pathology pending Hypothyroidism -Continue home levothyroxine Hypertension -Hold home losartan -Continue to monitor blood pressure and will start as needed if needed DVT prophylaxis -Start chemoprophylaxis with heparin twice daily CODE STATUS -DNR CCA with no intubation Charges/Coding Visit Charges Inpatient E&M: 92626 Subs Hosp L2
--- NOTE | 2023-08-16 14:19 | CASEMGMT ---
SW met with patient's and 2 daughters. SW introduced self and role at [facility]. SW provided them with a list of senior care facility providers including quality and resource use data and consistent with patient?s preferred geographic region, medical needs, and insurance network were provided from the [employer] Guide. SW explained they just need to pick 4 or so facilities they would be okay with And SW will follow up with the facilities. SW also addressed advance directives as they had expressed interest in completing documents. Per physician patient is not alert and oriented enough to make this decision. Family agreed and they are aware patient's is the decision maker, but they will all work together to make decisions. They did express [facility] would be their first choice. They thanked SW for talking with them. Plan: SNF pending family's choices and accepting facility. Kia NATHAN
[2023-08-16] MEDS: Piperacil/Tazobactam 3.375 GM in 0.9% Normal Saline (50mL MB+) 50 ML IV (15:09)
[2023-08-16] MEDS: 0.9% Normal Saline (250mL Bag) 250 ML 15 ML IV (15:09)
--- NOTE | 2023-08-16 15:44 | CASEMGMT ---
SW made a referral to [facility]. Kia NATHAN
[2023-08-16 15:46] LABS: Vitamin D,25 Hydroxy 39.4 ng/mL
[2023-08-16] MEDS: Ensure Plus High Protein 120 ML LIQUID PO ×2 (17:10→20:39)
[2023-08-16 17:13] LABS: M R Staph aureus DNA By PCR Negative (Negative); Probe Check PASS; Specimen Processing Control PASS
[2023-08-16 18:55] LABS: Bacteria 0 SEEN /hpf (None Seen); Mucous, Urine 0 SEEN /hpf (<or=2+); Squamous Epithelial Cells - UA 0 SEEN /hpf (0-5); White Blood Cells 0 SEEN /hpf (0-5)
[2023-08-16 18:56] LABS: Color, Urine Yellow (Yellow); Glucose, Dipstick Normal (Normal); Ketone-Dipstick 5 mg/dl (Negative); Leukocyte Esterase-Dipstick Negative /ul (Negative); Nitrite-Dipstick Negative (Negative); Occult Blood-Urine 25 /ul (Negative); Protein-Dipstick 30 mg/dl (Negative); Specific Gravity, Urine 1.015 (1.002-1.030); Urine Bilirubin Dipstick Negative (Negative); Urine Clarity Clear (Clear); Urine Urobilinogen Normal (Normal)
[2023-08-16 19:01] LABS: Red Blood Cells-Urine 0-5 SEEN /hpf (0-5)
[2023-08-16] MEDS: Heparin Injection (Vial) 5,000 UNIT/ML VIAL 5000 UNIT SC (20:38)
[2023-08-17 03:45] VITALS: BP 151/93; PULSE 93; RESP 16; TEMP 36.6; O2SAT 95
[2023-08-17] MEDS: Levothyroxine 125 MCG Tablet PO (05:16)
[2023-08-17] MEDS: 0.45% Normal Saline 1,000 ML 100 ML IV (06:55)
[2023-08-17 07:36] LABS: Absolute Lymphocyte Count 0.66 X10^3/uL (0.83-4.51); Absolute Neutrophil Count 20.5 X10^3/uL (2.0-7.7); Basophil# 0.04 X10^3/uL; Basophil% 0.2 % (0-1); Eosinophil# 0.24 X10^3/uL; Eosinophils% 1.1 % (0-5); Hemoglobin 10.7 g/dL (13.0-16.5); Lymphocyte # 0.66 X10^3/ul (0.83-4.51); Lymphocyte % 2.9 % (19-41); Mean Corp Hgb Conc 31.5 g/dL (32-36); Mean Corpuscular Hgb 29.5 pg (27.0-32.0); Mean Corpuscular Volume 93.7 fL (80-94); Mean Platelet Vol. 9.3 fl (6.2-12.0); Monocyte# 1.12 X10^3/uL; Monocyte% 4.9 % (0-10); NRBC Flagged by Analyzer 0 % (0-5); Neutrophil # 20.46 X10^3/uL (2.7-7.7); Neutrophil % 90.2 % (47-70); POSITIVE DIFFERENTIAL YES; Platelet Count 209 K/mm3 (150-450); RBC Distribution Width CV 13.2 % (11.6-14.6); RBC Distribution Width SD 45.6 fl (35.1-43.9); Red Blood Count 3.63 M/mm3 (4.6-6.2); White Blood Count 22.7 K/mm3 (4.4-11.0)
[2023-08-17 07:43] LABS: Differential Indicated SCAN CRITERIA MET
[2023-08-17 07:57] LABS: Anion Gap 9 (5-15); BUN 55 mg/dL (7-18); Calcium,Total 10.7 mg/dL (8.5-10.1); Chloride 121 mmol/L (98-107); Creatinine, Serum 3.05 mg/dL (0.70-1.30); EST Glomerular Filtration Rate 21 mL/min (>60); Est Glom Filt Rate - Afr Amer 25 mL/min (>60); Estimated Creatinine Clearance 15.33 ml/min; Glucose 89 mg/dL (74-106); Sodium Level 147 mmol/L (136-145)
[2023-08-17 08:08] LABS: Ovalocyte 1+
--- NOTE | 2023-08-17 08:55 | US_ITS ---
STUDY: RENAL ULTRASOUND - COMPLETE REASON FOR EXAM: Male, 88 years old. ckd TECHNIQUE: Ultrasound evaluation of the kidneys was performed with real-time and static torres-scale imaging. COMPARISON: None. FINDINGS: RIGHT KIDNEY: Normal location of the right kidney, which is normal in size. The right kidney measures 10.9 cm x 5.8 cm x 5.8 cm. There is diffuse thinning of the renal cortex. The renal cortex measures 0.8 cm. There is a heterogeneous mass in the upper pole of the right kidney measuring 3.1 cm x 3.2 cm by 2.7 cm. A neoplastic process should be ruled out. There are no right renal calculi. There is no right hydronephrosis. DISTAL RIGHT URETER: There is non-visualization of the distal right ureter. There is no demonstrated right ureterovesical junction calculus. There is a visualized right ureteral jet. LEFT KIDNEY: Normal location of the left kidney, which is normal in size. The left kidney measures 9.8 cm x 5.8 cm x 5.6 cm. There is a normal cortex of the left kidney. The renal cortex measures 1 cm. There is a 2.4 cm x 2.3 cm x 2 cm hypoechoic solid nodule in the upper pole. A neoplastic process should be ruled out. There are no left renal calculi. There is no left hydronephrosis. DISTAL LEFT URETER: There is non-visualization of the distal left ureter. There is no demonstrated left ureterovesical junction calculus. There is a visualized left ureteral jet. BLADDER: The distended urinary bladder has a volume of 625.5 ml. There is a normal wall thickness of the distended urinary bladder. There is no demonstrated mass within the urinary bladder. There are no demonstrated bladder calculi. US/Kidney and Bladder IMPRESSION: Parenchymal thinning in the right kidney. Solid masses in the upper pole of the right and left kidneys. Correlation with CT scan is recommended. Electronically Signed: Doug Bender MD at 15:21 EDT ,
[2023-08-17] MEDS: Piperacil/Tazobactam 3.375 GM in 0.9% Normal Saline (50mL MB+) 50 ML IV ×2 (09:10→21:42)
[2023-08-17] MEDS: Heparin Injection (Vial) 5,000 UNIT/ML VIAL 5000 UNIT SC ×2 (09:11→21:41)
[2023-08-17 09:17] VITALS: BP 122/78; PULSE 103; RESP 18; TEMP 36; O2SAT 97
[2023-08-17] MEDS: 0.9% Saline Lock 10 ML Syringe IV ×2 (09:17→09:26)
[2023-08-17] MEDS: Dextrose 5%-Water (1000mL Bag) 1,000 ML 100 ML IV ×2 (09:17→18:41)
[2023-08-17 09:20] VITALS: PULSE 103
[2023-08-17] MEDS: Furosemide 20 MG/2 ML VIAL IV (09:22)
[2023-08-17] MEDS: Ensure Plus High Protein 120 ML LIQUID PO ×2 (09:23→21:40)
--- NOTE | 2023-08-17 09:40 | PCM.PN.INT ---
Assessment & Plan Assessment/Plan (1) Hypercalcemia: (2) Right lower lobe lung mass: PLAN: Plan RECOMMENDATIONS: 1. Continue therapy for hypercalcemia 2. Transitioned to D5W secondary to hypernatremia and hyperchloremia 3. Probable heme-onc follow-up pending results 4. Not necessary to keep hospitalized until biopsy results available 5. Possibly obtain a complete PFT/PET scan as an outpatient 6. Happy to see as an outpatient for PFT if deemed a possible resection candidate 7. Hemodynamically stable on room air. Will sign off from a pulmonary/critical care perspective IMPRESSIONS: 1. 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 Patient is receiving IV fluids, bisphosphonate and calcitonin. Clinical suspicion is leg weakness and confusion is secondary to hypercalcemia. GI symptoms may also be from hypercalcemia. 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 2. 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 Unclear if this is metastasis versus a second primary. Patient would be a marginal treatment candidate. Patient may have an element of postobstructive pneumonia and is on Unasyn. Biopsies are currently pending. Patient does not need to stay in the hospital for these results. Patient is already established with oncology 3. Metabolic encephalopathy secondary to hypercalcemia versus dementia Patient reportedly does have issues with memory at baseline. Significantly improved. Would avoid benzodiazepines if possible. Continue with delirium protocol. 4. 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 Patient has been receiving aggressive hydration secondary to problem #1. Patient's losartan is currently on hold. Could reassess on continuation once hypercalcemia addressed. Patient may benefit from Lasix and will need to follow I's and O's closely. 5. Advanced age/BPH/frailty Complicates care, management, recovery and prognosis. Therapy has been working with the patient, but high clinical suspicion that he will require placement of patient wishes to remain aggressive. Continue to monitor urine output closely. Subjective Subjective Patient much more appropriate today. Less tangential speaking noted. Patient not reporting any flank pain. Patient did have CT-guided biopsy yesterday, but reports no change in respiratory status. Patient had no recollection of the biopsy. Objective Data Objective Data Vital Signs: Vital Signs Temp Pulse Resp BP Pulse Ox O2 Del Method 36.0 C L 103 H 18 122/78 H 97 Room Air 08/17/23 09:17 08/17/23 09:17 08/17/23 09:17 08/17/23 09:17 08/17/23 09:17 08/17/23 09:17 Oxygen Delivery Method Room Air Weight: 63.5 kg Body Mass Index (BMI) 22.6 Intake & Output: Intake and Output for Last 24 Hours 08/15/23 08/16/23 08/17/23 23:59 23:59 23:59 Intake Total 2152 / 2152 2932.25 / 2932.25 1158.34 / 1158.34 Output Total 1900 / 2900 2350 / 2350 700 / 700 Balance 252 / -748 582.25 / 582.25 458.34 / 458.34 Medical Nutrition Assessment Dietitian: Malnutrition Criteria Met Start: 08/15/23 16:14 Freq: Status: Active Protocol: Document 08/15/23 16:14 LO (Rec: 08/15/23 16:14 LO [id number]) Nutrition Malnutrition Evidence of Malnutrition Exists Yes Malnutrition (severe): Chronic Evidenced By Suboptimal Energy Intake ( Severe),Weight Loss (Severe) Clinical Problem Chronic Disease or Condition Related Malnutrition Etiology severe related to suboptimal appetite Signs/Symptoms as evidenced by <75% PO intake of estimated needs for >1 month and 23lbs (14.1%) weight loss in 2 months Status Active Problem Recommendation Dietitian Recommendations/Changes ADAT to Regular with texture/ consistency per [employer]. RD will change EPHP supplements to 4x daily with medpass Lab / Micro Data Attestation: I reviewed the patient's lab results. 08/17/23 07:15 08/17/23 07:15 Labs: Laboratory Results - last 24 hr 08/16/23 14:50: Vitamin D 25-Hydroxy 39.4 08/16/23 15:45: MRSA (PCR) Negative 08/16/23 18:45: Urine Color Yellow, Urine Clarity Clear, Urine pH 6.0, Ur Specific [place] 1.015, Urine Protein 30 H, Urine Glucose (UA) Normal, Urine Ketones 5 H, Urine Occult Blood 25 H, Urine Nitrite Negative, Urine Bilirubin Negative, Urine Urobilinogen Normal, Ur Leukocyte Esterase Negative, Urine RBC 0-5 SEEN, Urine WBC 0 SEEN, Ur Squamous Epith Cells 0 SEEN, Urine Bacteria 0 SEEN, Urine Mucus 0 SEEN 08/17/23 07:15: WBC 22.7 H, RBC 3.63 L, Hgb 10.7 L, Hct 34.0 L, MCV 93.7, MCH 29.5, MCHC 31.5 L, RDW Std Deviation 45.6 H, RDW Coeff of German 13.2, Plt Count 209, MPV 9.3, Immature Gran % (Auto) 0.700, Neut % (Auto) 90.2 H, Lymph % (Auto) 2.9 L, [place] % (Auto) 4.9, Eos % (Auto) 1.1, Baso % (Auto) 0.2, Absolute Neuts (auto) 20.5 H, Absolute Lymphs (auto) 0.66 L, Nucleated RBC % 0, Ovalocytes 1+, Sodium 147 H, Potassium 4.0, Chloride 121 H, Carbon Dioxide 17.0 L, Anion Gap 9, BUN 55 H, Creatinine 3.05 H, Estim Creat Clear Calc 15.33, Est GFR (MDRD) Af Amer 25 L, Est GFR (MDRD) Non-Af 21 L, BUN/Creatinine Ratio 18.0, Glucose 89, Calcium 10.7 H Micro: Microbiology 08/14/23 13:42 Mucosa - Nose SARS-CoV-2, Influenza & RSV (PCR) - Final Radiography Diagnostic Testing: Radiology Impression Chest X-Ray 08/16/23 10:10 IMPRESSION: No evidence of pneumothorax on the immediate post right lung biopsy radiographs. Electronically Signed: Doug Bender MD at 10:26 EDT , Physical Exam Const alert, oriented x3 and no apparent distress Constitutional Narrative: Malnourished, hard of hearing HEENT normocephalic HEENT Narrative: Edentulous no dentures in place Eyes PERRL and EOMs intact bilaterally Eyes Narrative: Much better eye contact today Neck no lymphadenopathy Resp Resp Narrative: More diminished in the right lung base. No ecchymosis at the biopsy site Auscultation: Negative for rales, rhonchi or wheezes Cardio regular rate, regular rhythm, S1 normal heart sound, S2 normal heart sound, no murmurs, no rub and no gallops GI normal to inspection, nondistended, normoactive bowel sounds Extremity General Extremity: Negative for edema Skin no rashes or lesions noted Neuro Sensorium / Orientation: awake and alert Psych Psych Narrative: Tangential speech noted Mood & Affect: flat affect Charges/Coding Visit Charges Inpatient E&M: 53807 Subs Hosp L2
--- NOTE | 2023-08-17 10:23 | SP.MBSS_ITS ---
Modified Barium Swallow Patient Information Study Date: 08/17/23 Study Time: 10:30 Direct Billable Minutes: 120 Total Minutes procedure & reportin Diagnosis: History of malignant neoplasm of the oral cavity Z85.819 Referring Physician: Marily Boo Reason for Referral: Objectively assess swallow function, assess risk for aspiration, and determine recommendations for least restrictive diet textures and compensatory strategies to improve safety of swallow. Medical History: PMH: SCC of oral cavity, Benign bladder mass, Inguinal hernia, CKD stage 4, Venous insufficiency, VTE. The patient presented to [facility] ED 08/14/23 with progressive weakness since the last 1 week. Gets tired after walking few steps. His po intake has declined significantly including hydration. The family takes care of much of his activities of daily living. He is edentulous following his radiation therapy and is on mechanical soft diet at home. Over the last few weeks family has been noticing dysphagia with solids associated with instant coughing and regurgitation of the food. He was referred for speech therapy consult due history of dysphagia. Of note, radiology cancelled barium esophagram today due to concerns for aspiration risk. LIGHTING DIRECTOR to determine if he is appropriate for participation in ordered esophagram. 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 Most recent evaluation of swallowing was MBSS 11/22/2019 and revealed deep laryngeal penetration of liquids to the vocal folds with complete ejection. He was recommended the following diet and strategies to decrease aspiration risk: mechanical soft textures/thin liquids - moisten food with sauce/g ravy/condiments, distant supervised meals, small bites/sips, upright 90 degrees during PO intake and 30-60 minutes, straws ok. BSE completed during this acute stay 08/15/23. He was recommended Puree / Thin liquids with recommendation for MBSS to further assess swallow function and aspiration risk. He is currently on full liquids per physician. Current Diet Ordered: Full liquids Dentition: Edentulous Mental Status: Impaired (Confusion during hospitalization) Respiratory Status: Oxygenating on Room Air Penetration-Aspiration Scale Penetration-Aspiration Scale: OBJECTIVE ASSESSMENT OF SWALLOW FUNCTION (QUANTITATIVE ? PER TRIAL): PENETRATION / ASPIRATION SCALE (LUNA): 1 = does not enter airway 2 = enters airway/above vocal folds/ejected 3 = enters airway/above vocal folds/not ejected 4 = enters airway/contacts vocal folds/ejected 5 = enters airway/contacts vocal folds/not ejected 6 = enters airway/below vocal folds/ejected 7 = enters airway/below vocal folds/not ejected despite effort 8 = enters airway/below vocal folds/no effort VIDEOFLOROSCOPIC SCALE SCORE (LUNA): Grade I = aspiration of material that has penetrated into the laryngeal vestibule, intact cough reflex Grade II = aspiration < 10 % of the bolus, intact cough reflex Grade III = aspiration of < 10 % of the bolus, reduced cough reflex or aspiration of > 10 % of the bolus, intact cough reflex Grade IV = aspiration of > 10 % of the bolus, reduced cough reflex Penetration-Aspiration Scale Score Thin Liquid via teaspoon: Result: 2= enter airway/above vocal folds/ejected Thin Liquid via teaspoon Trial 2: Result: 7= enters airways/below vocal folds/not ejected despite effort Thin Liquid via teaspoon Effortful swallow: Result: 3= enters airways/above vocal folds/not ejected Thin Liquid via small single sip: cup Effortful swallow: Result: 5= enters airways/contacts vocal folds/not ejected [place]oll[place] Thick Liquid via teaspoon: Result: 5= enters airways/contacts vocal folds/not ejected Honey Thick Liquid via teaspoon: Result: 5= enters airways/contacts vocal folds/not ejected Thin Liquid via small single sip: cup Effortful swallow Trial 2: Result: 5= enters airways/contacts vocal folds/not ejected Pudding via 1/2 teaspoon: Comment: Unable to score due to minimal to no pharyngeal clearance of this trial. Thin Liquid via small single sip: cup Effortful swallow Trial 3: Result: 7= enters airways/below vocal folds/not ejected despite effort Thin Liquid via teaspoon Chin tuck: Result: 7= enters airways/below vocal folds/not ejected despite effort Oral Phase Labial Seal: Escape beyond mid-chin Tongue Control During Bolus Hold: Posterior escape of greater than half of bolus Bolus Transport/Lingual Motion: Slowed tongue motion (Moderate-severely decreased lingual ROM) Oral Residue: Residue collection on oral structures Pharyngeal Phase Initiation of Pharyngeal Swallow: Bolus head in pyriforms Laryngeal Elevation: Partial superior movement thyroid cart/partial apprx aryt- epig petiole Anterior Hyoid Excursion: No anterior movement Epiglottic Movement: Partial inversion Laryngeal Vestibule Closure at Height of Swallow: Incomplete; narrow column of air/contrast in laryngeal vestibule Pharyngeal Stripping Wave: Absent Pharyngoesophageal Segment Opening: Minimal distension and minimal duration; marked obstruction of flow Tongue Base Retraction: Wide column of contrast between tongue base & post. pharyngeal wall Pharyngeal Residue: Minimal to no pharyngeal clearance (pudding) Esophageal Phase Esophageal Clearance: Esophageal retention (min retention in the UES) Diagnosis/Impression Diagnosis: Severe oropharyngeal dysphagia R13.12 Impression: The oral phase is primarily marked by... -Decreased bolus control with >1/2 of the bolus spilling posteriorly to the pyriforms prior to swallow onset observed with thin liquids especially. -Slowed tongue motion for A-P transport. -Majority oral residue after the swallow d/t piecemeal deglutition of pudding trial. Oral residue cleared with independent initiation of a multiple swallows as needed. The pharyngeal phase is primarily marked by... -Decreased airway closure during the swallow due to no anterior hyoid excursion, partial epiglottic inversion, and moderately decreased laryngeal elevation. -Decreased tongue base retraction and UES opening/duration with no pharyngeal stripping wave resulting in little to no pharyngeal clearance of pudding trial. 1/2 tsp of pudding required multiple swallows, thin liquid wash, chin tuck and multiple re-swallows X3 to clear ~25% of bolus. -Aspiration with delayed coughing and throat clearing observed 4X with thin l iquids. Consistent laryngeal penetration across all liquid consistencies that did not reliably reject from his laryngeal vestibule. Use of effortful swallow was most effective in decreasing his risk for aspiration. Reflexive throat clear and re-swallow was somewhat effective in decreasing residues remaining in the laryngeal vestibule after the swallow. Recommendations Diet: Thin Liquids (Full thin liquid diet) Comment: Slightly reclined for oral intake, meds crushed in applesauce with thin liquid by tsp wash, frequent oral care Compensatory Strategies: Liquid by Teaspoon Only (Effortful swallows), Slow Rate and Remain sitting upright for 30 minutes after PO intake Supervision: Assist as needed and 1:1 Close Supervision Recommend Repeat Modified Barium Swallow: Yes (After 2 weeks of intensive oropharyngeal strengthening OR following potential GI intervention for poor UES opening/duration) Need for Skilled Speech Therapy Services: Yes Recommended Referrals: GI Consult (Please consider the patient for management of poor UES opening/duration. Would also consider alternative means of nutrition due to LIGHTING DIRECTOR's concern for patient's inability to adequately nourish and hydrate by mouth.) and Dietitian Consult Education Completed: 1. Described result of evaluation. Status Active ST Patient: Active Contact Information [facility] Speech Therapy:: [facility]:: Jayne Stroud M.A. CCC-LIGHTING DIRECTOR Speech-Language Pathologist [facility] [address] [place] [address] [email or web address] [phone]
--- NOTE | 2023-08-17 11:14 | CASEMGMT ---
TCU can take patient when ready. SW notified family. Plan: [facility] TCU under skilled level of care. Kia NATHAN
[2023-08-17 12:01] LABS: Ionized Calcium 5.66 mg/dL (4.36-5.20)
--- NOTE | 2023-08-17 14:39 | PCM.PN.HOSP ---
Reason for Visit Reason for Visit: Confusion/generalized weakness Subjective Subjective Mental status is improving significantly with correction and is calcium. He is much more appropriate today with conversation and less tangential. Objective Data Objective Data Vital Signs: Vital Signs Temp Pulse Resp BP Pulse Ox O2 Del Method 96.8 F L 103 H 18 122/78 H 97 Room Air 08/17/23 09:17 08/17/23 09:20 08/17/23 09:17 08/17/23 09:17 08/17/23 09:17 08/17/23 14:35 Oxygen Delivery Method Room Air Weight: 63.5 kg Body Mass Index (BMI) 22.6 Intake & Output: Intake and Output for Last 24 Hours 08/15/23 08/16/23 08/17/23 23:59 23:59 23:59 Intake Total 2152 / 2152 2932.25 / 2932.25 1600.01 / 1600.01 Output Total 1900 / 2900 2350 / 2350 1175 / 1175 Balance 252 / -748 582.25 / 582.25 425.01 / 425.01 Medical Nutrition Assessment Dietitian: Malnutrition Criteria Met Start: 08/15/23 16:14 Freq: Status: Active Protocol: Document 08/15/23 16:14 LO (Rec: 08/15/23 16:14 LO [id number]) Nutrition Malnutrition Evidence of Malnutrition Exists Yes Malnutrition (severe): Chronic Evidenced By Suboptimal Energy Intake ( Severe),Weight Loss (Severe) Clinical Problem Chronic Disease or Condition Related Malnutrition Etiology severe related to suboptimal appetite Signs/Symptoms as evidenced by <75% PO intake of estimated needs for >1 month and 23lbs (14.1%) weight loss in 2 months Status Active Problem Recommendation Dietitian Recommendations/Changes ADAT to Regular with texture/ consistency per [employer] SUPERVISOR. RD will change EPHP supplements to 4x daily with medpass Lab / Micro Data 08/17/23 07:15 08/17/23 07:15 Labs: Laboratory Results - last 24 hr 08/16/23 14:50: Vitamin D 25-Hydroxy 39.4 08/16/23 15:45: MRSA (PCR) Negative 08/16/23 18:45: Urine Color Yellow, Urine Clarity Clear, Urine pH 6.0, Ur Specific [place] 1.015, Urine Protein 30 H, Urine Glucose (UA) Normal, Urine Ketones 5 H, Urine Occult Blood 25 H, Urine Nitrite Negative, Urine Bilirubin Negative, Urine Urobilinogen Normal, Ur Leukocyte Esterase Negative, Urine RBC 0-5 SEEN, Urine WBC 0 SEEN, Ur Squamous Epith Cells 0 SEEN, Urine Bacteria 0 SEEN, Urine Mucus 0 SEEN 08/17/23 07:15: WBC 22.7 H, RBC 3.63 L, Hgb 10.7 L, Hct 34.0 L, MCV 93.7, MCH 29.5, MCHC 31.5 L, RDW Std Deviation 45.6 H, RDW Coeff of German 13.2, Plt Count 209, MPV 9.3, Immature Gran % (Auto) 0.700, Neut % (Auto) 90.2 H, Lymph % (Auto) 2.9 L, [place] % (Auto) 4.9, Eos % (Auto) 1.1, Baso % (Auto) 0.2, Absolute Neuts (auto) 20.5 H, Absolute Lymphs (auto) 0.66 L, Nucleated RBC % 0, Ovalocytes 1+, Sodium 147 H, Potassium 4.0, Chloride 121 H, Carbon Dioxide 17.0 L, Anion Gap 9, BUN 55 H, Creatinine 3.05 H, Estim Creat Clear Calc 15.33, Est GFR (MDRD) Af Amer 25 L, Est GFR (MDRD) Non-Af 21 L, BUN/Creatinine Ratio 18.0, Glucose 89, Calcium 10.7 H, Ionized Calcium 5.66 H Micro: Microbiology 08/14/23 13:42 Mucosa - Nose SARS-CoV-2, Influenza & RSV (PCR) - Final ABG Data ABG results: ABG 08/17/23 11:24 VBG Carboxyhemoglobin Cancelled Radiography Diagnostic Testing: Radiology Impression Chest X-Ray 08/16/23 07:21 IMPRESSION: No evidence of pneumothorax on the 2 hour post right lung biopsy radiographs. Electronically Signed: Doug Bender MD at 12:21 EDT , Physical Exam Const alert, oriented x3 and no apparent distress; Negative for average body habitus, healthy appearing or well nourished Constitutional Narrative: Thin, elderly, white male, lying in bed sleeping and 2 daughters at the bedside, appears chronically ill HEENT normocephalic and head/scalp atraumatic HEENT Narrative: Edentulous, Mallampati 1, no thrush, oropharynx is dry due to lack of saliva production Head and Scalp: normocephalic Resp normal respiratory effort, no retractions, no use of accessory muscles and clear to auscultation bilaterally Resp Narrative: Diffusely diminished with no adventitious sounds noted Auscultation: Negative for rales, rhonchi or wheezes Cardio regular rate, regular rhythm, S1 normal heart sound, S2 normal heart sound, no murmurs, no rub, no gallops and no clicks GI normal to inspection, nondistended, normoactive bowel sounds, soft to palpation and non-tender Extremity no clubbing, cyanosis or edema Extremity Narrative: Pedal pulses are 2+ Neuro No oriented x3, moves all extremities and no focal motor deficits Neuro Narrative: Patient sleeping soundly Psych affect normal Psych Narrative: Pleasant, interaction is more appropriate and at baseline Assessment & Plan Assessment/Plan (1) Right lower lobe lung mass: (2) Hypercalcemia: (3) HEIDI (acute kidney injury): (4) Anemia: (5) Leukocytosis: (6) Generalized weakness: (7) Toxic metabolic encephalopathy: PLAN: Plan 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 -Calcium was normal in January -Ionized calcium is 6.65--> trending down and now 5.66 with normal being less than 5.20 -Highly anticipate that his calcium will be normalized tomorrow -Continue IV fluids but change D5W due to the increase in sodium and chloride -Will give Lasix x 1 dose -Vitamin D level is normal -PTHrP are pending -calcitonin at 260 units subcu twice daily x 2 doses given on 08/16/2023 -Pamidronate 90 mg IV push given x 1 dose given on 08/16/2023 -Likely paraneoplastic -If patient wants PEG will consult oncology to arrange for outpatient follow-up and planned for IV bisphosphonates after discharge 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 -Highly suspicious of malignancy -Biopsy results noted as above--> discussed with radiation oncology in the highly suspect this is a new primary based on size despite his previous head and neck primary being squamous cell carcinoma -Will need outpatient PET scan and oncology follow-up after discharge -Oncology consultation if patient wants PEG Severe oropharyngeal dysphagia -Likely multifactorial but predominantly related to previous radiation -Will need PEG if wants to be aggressive -Will discuss with family when they return and if they want PEG will consult GI for PEG tube placement -Speech therapy is following -Patient is on a very minimal diet and will not be able to obtain adequate nutrition and will need intensive speech therapy after discharge Toxic/metabolic encephalopathy -Likely related to severe hypercalcemia -Improving considerably -Continue to treat hypercalcemia and monitor clinically Aspiration pneumonia -Continue antibiotics -Will treat for total of 7 days -Continue Acapella -Continue I-S HEIDI on CKD Stage IV -Baseline serum creatinine seems to run between 2.2 and 2.5 -3.93 on admission -Creatinine seems to be stabilizing at 3-3.1 -Repeat lab in a.m. -Avoid nephrotoxins -Hold losartan -Continue IV fluids but transition to D5W Hypernatremia/hyperchloremia -Likely iatrogenic from normal saline -Change IV fluids to D5W at the same rate of 100 cc/h Hyperchloremic metabolic acidosis -IV fluids transition -Repeat lab in a.m. 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 -Status post radiation from 12/04/2018 through 01/12/2019 and right neck dissection with direct radiation delivered to the tumor bed during surgery -Recent appointment with radiation oncology showed no recurrence of disease on exam -Unclear if this mass in his chest is metastatic disease versus new primary malignancy Hypothyroidism -Continue home levothyroxine Hypertension -Hold home losartan -Continue to monitor blood pressure and will start as needed if needed DVT prophylaxis -Start chemoprophylaxis with heparin twice daily CODE STATUS -DNR CCA with no intubation Disposition: -Anticipate discharge in the next 48 hours if patient decides to proceed with PEG if not hospice consultation will need to be made Charges/Coding Visit Charges Inpatient E&M: 74529 Subs Hosp L2
[2023-08-17 15:31] LABS: Ionized Calcium Order ORDER TUBE
[2023-08-17 15:45] VITALS: BP 132/73; PULSE 90; RESP 18; TEMP 36.5; O2SAT 98
[2023-08-17 16:58] LABS: Bedside Glucose 110 mg/dL (74-106)
[2023-08-17 21:34] VITALS: BP 130/86; PULSE 98; RESP 18; TEMP 36.6; O2SAT 99
--- NOTE | 2023-08-18 03:30 | NURSING ---
This nurse assumed care for this patient at 0330. patient denies any needs at this time
[2023-08-18 04:07] VITALS: BP 115/71; PULSE 97; RESP 16; TEMP 36.6; O2SAT 97
[2023-08-18] MEDS: Dextrose 5%-Water (1000mL Bag) 1,000 ML 100 ML IV ×2 (04:41→17:56)
[2023-08-18 07:10] LABS: Absolute Lymphocyte Count 0.69 X10^3/uL (0.83-4.51); Absolute Neutrophil Count 17.6 X10^3/uL (2.0-7.7); Basophil# 0.04 X10^3/uL; Basophil% 0.2 % (0-1); Eosinophil# 0.43 X10^3/uL; Eosinophils% 2.1 % (0-5); Hematocrit 33.3 % (40-54); Hemoglobin 10.6 g/dL (13.0-16.5); Lymphocyte # 0.69 X10^3/ul (0.83-4.51); Lymphocyte % 3.4 % (19-41); Mean Corp Hgb Conc 31.8 g/dL (32-36); Mean Corpuscular Hgb 29.4 pg (27.0-32.0); Mean Corpuscular Volume 92.5 fL (80-94); Mean Platelet Vol. 9.6 fl (6.2-12.0); Monocyte# 1.05 X10^3/uL; Monocyte% 5.2 % (0-10); NRBC Flagged by Analyzer 0 % (0-5); Neutrophil # 17.64 X10^3/uL (2.7-7.7); Neutrophil % 88.1 % (47-70); Platelet Count 191 K/mm3 (150-450); RBC Distribution Width CV 13.2 % (11.6-14.6); RBC Distribution Width SD 44.7 fl (35.1-43.9); White Blood Count 20.1 K/mm3 (4.4-11.0)
[2023-08-18 07:15] LABS: Ionized Calcium 5.61 mg/dL (4.36-5.20)
[2023-08-18] MEDS: Levothyroxine 125 MCG Tablet PO (07:18)
[2023-08-18 07:55] LABS: Anion Gap 6 (5-15); BUN 58 mg/dL (7-18); BUN/Creat Ratio 17.6 RATIO (10-20); Calcium,Total 10.1 mg/dL (8.5-10.1); Chloride 113 mmol/L (98-107); EST Glomerular Filtration Rate 19 mL/min (>60); Est Glom Filt Rate - Afr Amer 23 mL/min (>60); Estimated Creatinine Clearance 14.16 ml/min; Glucose 110 mg/dL (74-106); Potassium 3.5 mmol/L (3.5-5.1); Sodium Level 140 mmol/L (136-145)
[2023-08-18] MEDS: Piperacil/Tazobactam 3.375 GM in 0.9% Normal Saline (50mL MB+) 50 ML IV ×2 (09:43→21:35)
[2023-08-18] MEDS: Potassium Chloride 10mEq/100mL 10 MEQ/100 ML IV.SOLN. 100 MEQ IV BOLUS ×4 (10:02→13:11)
[2023-08-18 10:05] VITALS: BP 108/66; PULSE 71; RESP 16; TEMP 36.7; O2SAT 97
--- NOTE | 2023-08-18 11:13 | CASEMGMT ---
Physician notified SW that patient and family would like Hospice. SW met with patient and family. Family confirmed they would like to take patient home on Hospice. Family would like [facility]. Family would like Hospice to call patient's daughter Antonette [phone]. SW called Hospice with referral. SW also faxed information to Hospice. SW notified Shobha in TCU that patient is going Hospice. Kia Lerner [employer]
[2023-08-18] MEDS: Heparin Injection (Vial) 5,000 UNIT/ML VIAL 5000 UNIT SC ×2 (12:09→21:44)
--- NOTE | 2023-08-18 15:56 | CASEMGMT ---
DORIAN BERRY updated by Pamela from Hospice that plan is for patient to go home tomorrow with hospice services. Pamela states equipment should be delivered between 10am-12noon tomorrow and will have family updated SW when delivered.
[2023-08-18 16:14] VITALS: BP 107/63; PULSE 80; RESP 16; TEMP 36.7; O2SAT 97
--- NOTE | 2023-08-18 16:24 | PN.HOSP_ITS ---
Reason for Visit Reason for Visit: Weakness/confusion Subjective Subjective No issues overnight. Patient denies any pain or problems currently. Only desire he has is to eat. Objective Data Objective Data Vital Signs: Vital Signs Temp Pulse Resp BP Pulse Ox O2 Del Method 98.0 F 80 16 107/63 97 Room Air 08/18/23 16:14 08/18/23 16:14 08/18/23 16:14 08/18/23 16:14 08/18/23 16:14 08/18/23 16:14 Oxygen Delivery Method Room Air Weight: 63.5 kg Body Mass Index (BMI) 22.6 Intake & Output: Intake and Output for Last 24 Hours 08/16/23 08/17/23 08/18/23 23:59 23:59 23:59 Intake Total 2932.25 / 2932.25 2268.34 / 2268.34 2041.67 / 2041.67 Output Total 2350 / 2350 1375 / 1375 200 / 200 Balance 582.25 / 582.25 893.34 / 893.34 1841.67 / 1841.67 Medical Nutrition Assessment Dietitian: Malnutrition Criteria Met Start: 08/15/23 16:14 Freq: Status: Active Protocol: Document 08/15/23 16:14 LO (Rec: 08/15/23 16:14 LO [id number]) Nutrition Malnutrition Evidence of Malnutrition Exists Yes Malnutrition (severe): Chronic Evidenced By Suboptimal Energy Intake ( Severe),Weight Loss (Severe) Clinical Problem Chronic Disease or Condition Related Malnutrition Etiology severe related to suboptimal appetite Signs/Symptoms as evidenced by <75% PO intake of estimated needs for >1 month and 23lbs (14.1%) weight loss in 2 months Status Active Problem Recommendation Dietitian Recommendations/Changes ADAT to Regular with texture/ consistency per BRAIDED BAND ASSEMBLER. RD will change EPHP supplements to 4x daily with medpass Lab / Micro Data 08/18/23 06:40 08/18/23 06:40 Labs: Laboratory Results - last 24 hr 08/17/23 16:40: POC Glucose 110 H 08/18/23 06:40: WBC 20.1 H, RBC 3.60 L, Hgb 10.6 L, Hct 33.3 L, MCV 92.5, MCH 29.4, MCHC 31.8 L, RDW Std Deviation 44.7 H, RDW Coeff of German 13.2, Plt Count 191, MPV 9.6, Immature Gran % (Auto) 1.000 H, Neut % (Auto) 88.1 H, Lymph % (Auto) 3.4 L, [place] % (Auto) 5.2, Eos % (Auto) 2.1, Baso % (Auto) 0.2, Absolute Neuts (auto) 17.6 H, Absolute Lymphs (auto) 0.69 L, Nucleated RBC % 0, Sodium 140, Potassium 3.5, Chloride 113 H, Carbon Dioxide 21.0, Anion Gap 6, BUN 58 H, Creatinine 3.30 H, Estim Creat Clear Calc 14.16, Est GFR (MDRD) Af Amer 23 L, Est GFR (MDRD) Non-Af 19 L, BUN/Creatinine Ratio 17.6, Glucose 110 H, Calcium 10.1 08/18/23 07:11: Ionized Calcium 5.61 H Micro: Microbiology 08/16/23 14:40 Blood Culture (Wb) - Arm Right Blood Culture - Preliminary No growth in 48 hours. 08/16/23 14:50 Blood Culture (Wb) - Anticubital Right Blood Culture - Preliminary No growth in 48 hours. 08/16/23 18:45 Urine, Clean Catch Urine Culture - Final Culture exhibits no growth. 08/14/23 13:42 Mucosa - Nose SARS-CoV-2, Influenza & RSV (PCR) - Final Physical Exam Const alert, oriented x3 and no apparent distress; Negative for average body habitus, healthy appearing or well nourished Constitutional Narrative: Thin, elderly, white male, sitting up in bed, extensive family at the bedside, patient appears comfortable, nontoxic but does appear ill HEENT normocephalic and head/scalp atraumatic HEENT Narrative: Edentulous, Mallampati 1, oral mucous membranes are dry Resp normal respiratory effort, no retractions, no use of accessory muscles and clear to auscultation bilaterally Resp Narrative: Diffusely diminished with no adventitious sounds noted Auscultation: Negative for rales, rhonchi or wheezes Cardio regular rate, regular rhythm, S1 normal heart sound, S2 normal heart sound, no murmurs, no rub, no gallops and no clicks GI normal to inspection, nondistended, normoactive bowel sounds, soft to palpation and non-tender GI Narrative: Scaphoid abdomen Extremity no clubbing, cyanosis or edema Extremity Narrative: Pedal pulses are 2+, marked decreased lean muscle mass Neuro moves all extremities and no focal motor deficits Sensorium / Orientation: awake, alert, oriented to person and oriented to place; Negative for oriented to time Speech: Negative for speech normal Psych affect normal Psych Narrative: Pleasant, interaction is appropriate today Assessment & Plan Assessment/Plan (1) Right lower lobe lung mass: (2) Hypercalcemia: (3) HEIDI (acute kidney injury): (4) Anemia: (5) Leukocytosis: (6) Generalized weakness: (7) Toxic metabolic encephalopathy: PLAN: Plan Assessment: 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 After lengthy conversation patient and family all agree that a PEG tube is not the way to go at this point and they are not certain whether or not he would tolerate chemo therapy and radiation at this time. They would like to talk to hospice. Hospice has since talked to the patient and he is now signed with hospice with plans for discharge home tomorrow under hospice care. Charges/Coding Visit Charges Inpatient E&M: 16262 Subs Hosp L2
[2023-08-18 21:33] VITALS: BP 158/92; PULSE 100; RESP 18; TEMP 36.7; O2SAT 97
[2023-08-18] MEDS: 0.9% Saline Lock 10 ML Syringe IV (21:38)
[2023-08-19 03:36] VITALS: BP 147/78; PULSE 85; RESP 16; TEMP 36.7; O2SAT 96
[2023-08-19] MEDS: Dextrose 5%-Water (1000mL Bag) 1,000 ML 100 ML IV (03:41)
[2023-08-19] MEDS: Levothyroxine 125 MCG Tablet PO (05:53)
[2023-08-19 08:39] VITALS: O2SAT 95
[2023-08-19 08:57] VITALS: BP 107/62; PULSE 47; RESP 16; TEMP 36.7; O2SAT 98
[2023-08-19] MEDS: Heparin Injection (Vial) 5,000 UNIT/ML VIAL 5000 UNIT SC (09:03)
[2023-08-19] MEDS: Piperacil/Tazobactam 3.375 GM in 0.9% Normal Saline (50mL MB+) 50 ML IV (09:53)
--- NOTE | 2023-08-19 11:41 | DS.PCM_ITS ---
Providers Date of Admission: 08/14/23 Date of Discharge: 08/19/23 Primary Care Physician: Dr. Mati Cody MD Consultations 08/15/23 09:34 Consult: Med[employer] Literature Professor / Pulmonary Medicine Routine Consulting Provider: Intensivists/Pulmonary Med Reason for Consult: RLL Lung mass EMERGENT Consult: No MD Notified: Yes Date Notified: 08/15/23 Time Notified: 09:35 Method of Notification: Verbal Reason For Visit: HYPERCALCEMIA Diagnosis Discharge Diagnosis (1) Right lower lobe lung mass: Status: Acute Code(s): R91.8 - Other nonspecific abnormal finding of lung field (2) Hypercalcemia: Status: Acute Code(s): E83.52 - Hypercalcemia (3) HEIDI (acute kidney injury): Status: Acute Code(s): N17.9 - Acute kidney failure, unspecified (4) Anemia: Status: Acute Code(s): D64.9 - Anemia, unspecified (5) Leukocytosis: Status: Acute Code(s): D72.829 - Elevated white blood cell count, unspecified (6) Generalized weakness: Status: Acute Code(s): R53.1 - Weakness (7) Toxic metabolic encephalopathy: Status: Acute Code(s): G92.8 - Other toxic encephalopathy Medications at Discharge Home Medications levothyroxine 125 mcg tablet (Synthroid) 125 mcg PO DAILY 08/14/23 Hospital Course Procedures EKG, Modified Barium Swallow and - (CT-guided biopsy of right lung mass/chest x- ray/CT chest) Summary of Care Provided Minutes Spent on Discharge: 38 Hospital Course: Mr. Reyez is AN 88-year-old white male who presented to the emergency department [facility] on 08/14/2023 due to progressive weakness and in termittent confusion. 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 His family reports that he has had progressively work at [email or web address] since about August 05. He has had decreased energy and vitality. They indicated he was getting tired quickly after walking just a few steps and there have been occasions that he had to sit down on the ground while walking and crawled back to bed or a chair. It has been taking more more people to help him at home and his oral intake had declined significantly. He has had no changes in his bowel function and family has been taking care of much of his ADLs. They also were concerned that he was having some dysphagia with solid foods with instant coughing and regurgitation of food while eating. At baseline he is on a mechanical soft diet due to being edentulous and his history of radiation therapy. Vital signs on presentation were overtly unremarkable. His CBC showed a leukocytosis with a white count of 17.9 and an anemia with a hemoglobin of 12.0. Recent baseline hemoglobin is unclear as we have not had any labs on him since January however his hemoglobin at that time was 14.3. He appeared to be markedly dehydrated on presentation having a BUN of 75 and a serum creatinine of 3.93. Baseline crea tinine appears to run between 2.2 and 2.5. His calcium was noted to be markedly elevated at 13.6 with an ionized calcium of 6.65. He was treated with medronate, IV fluids, and calcitonin with slow improvement in his calcium to the point where his strength seems to be somewhat better and his mental status was at baseline per discussion with family. Chest x-ray was done at the time of admission which showed a abnormality in the right lower lobe. I ordered a follow-up CT of his chest which showed a mass that was 5 x 7 cm in the right lower lobe. After extensive conversation with family as the patient was not decisional at that time due to his hypercalcemia, they decided to proceed with biopsy. He was taken to interventional radiology on 08/16/[address]-guided biopsy of the right lower lobe lung mass was performed. 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 This was suspected to be a new primary. He also was markedly weak and was evaluated by speech therapy. He was found to have severe oropharyngeal dysphagia likely related to his weakness as well as his previous head and neck radiation from his previous head and neck cancer. A diet was ordered that was very conservative and would not allow for complete nutrition for the patient so we discussed the option for PEG tube shira cement and the patient at this time was able to participate in the conversation as his calcium had improved significantly. He indicated no way shape or form he wanted to pursue a PEG and hospice consultation was made after extensive discussion. Hospice evaluated the patient on 08/18/2023 and patient family signed papers for ongoing hospice at home. He was able to be discharged to home with hospice on 08/19/2023. 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 Hypothyroidism Hypertension Physical Exam Const no apparent distress; Negative for average body habitus, healthy appearing or well nourished Constitutional Narrative: Thin, elderly, white male, lying in bed sleeping soundly patient appears comfortable, nontoxic but does appear chronically ill General Appearance: cooperative, comfortable, well kempt and well developed Nutritional Appearance: cachectic HEENT normocephalic and head/scalp atraumatic HEENT Narrative: Oropharynx is dry with evidence of previous surgical intervention on the right side of his neck and jaw Eyes Eyes Narrative: Unable to assess as patient was sleeping at this time Neck no lymphadenopathy and supple Neck Narrative: Trachea midline, no thyroid enlargement, some neck abnormalities on right due to previous surgery and radiation Resp normal respiratory effort, no retractions, no use of accessory muscles and clear to auscultation bilaterally Resp Narrative: Diffusely diminished with no adventitious sounds noted Auscultation: Negative for rales, rhonchi or wheezes Cardio regular rate, regular rhythm, S1 normal heart sound, S2 normal heart sound, no murmurs, no rub, no gallops and no clicks GI normal to inspection, nondistended, normoactive bowel sounds and soft to palpation GI Narrative: Scaphoid abdomen Extremity no clubbing, cyanosis or edema Extremity Narrative: Pedal pulses are 2+, marked decreased lean muscle mass Skin no rashes or lesions noted, no wounds, skin turgor normal and no jaundice Skin Narrative: Skin is thin Neuro Neuro Narrative: Patient sleeping soundly Sensorium / Orientation: oriented to time Psych Psych Narrative: Patient sleeping soundly at this time unable to evaluate however affect and mood have been stable and good Medical Records Data Medical Nutrition Assessment Dietitian: Malnutrition Criteria Met Start: 08/15/23 16:14 Freq: Status: Active Protocol: Document 08/15/23 16:14 LO (Rec: 08/15/23 16:14 [id number]) Nutrition Malnutrition Evidence of Malnutrition Exists Yes Malnutrition (severe): Chronic Evidenced By Suboptimal Energy Intake ( Severe),Weight Loss (Severe) Clinical Problem Chronic Disease or Condition Related Malnutrition Etiology severe related to suboptimal appetite Signs/Symptoms as evidenced by <75% PO intake of estimated needs for >1 month and 23lbs (14.1%) weight loss in 2 months Status Active Problem Recommendation Dietitian Recommendations/Changes ADAT to Regular with texture/ consistency per [employer]. RD will change EPHP supplements to 4x daily with medpass Weight / BMI Weight Weight: 63.5 kg Body Mass Index (BMI) 22.6 ABG / Lab / Microbiology Data 08/18/23 06:40 08/18/23 06:40 Microbiology: Microbiology 08/16/23 14:40 Blood Culture (Wb) - Arm Right Blood Culture - Preliminary No growth in 48 hours. 08/16/23 14:50 Blood Culture (Wb) - Anticubital Right Blood Culture - Preliminary No growth in 48 hours. 08/16/23 18:45 Urine, Clean Catch Urine Culture - Final Culture exhibits no growth. 08/14/23 13:42 Mucosa - Nose SARS-CoV-2, Influenza & RSV (PCR) - Final D/C Instructions Discharge Diet: No restrictions Discharge Activity: Return to Normal Activity Meaningful Use Info Meaningful Use Diagnoses (Choose all that apply): None applicable Discharge Plan Admission Admit Date/Time: 08/14/23 15:24 Primary Reason for Your Visit: Confusion/fatigue Attending Provider: Marily Boo Primary Care Provider: Mati Cody Consulting Providers: Zaira Schaffer Instructions Patient Instructions: SHALA special education coordinator Instructions Needle Biopsy: Lung, SHALA RN Procedural Sedation Discharge Orders/Prescriptions Prescriptions: Continued levothyroxine [Synthroid] 125 mcg tablet 125 mcg PO DAILY Discontinued losartan 25 mg tablet 25 mg PO DAILY Referrals / Follow Up: Mati Cody MD [Primary Care Provider] - Disposition Disposition (needs filled in before D/C Order can be placed): Hospice in Home Charges/Coding Visit Charges Inpatient E&M: 47650 Disch Hosp >30min
--- NOTE | 2023-08-19 12:25 | CASEMGMT ---
Addendum entered by Enedelia Hemphill 08/19/23 12:49: Patients , Soha, notified of transport time. Enedelia Hemphill, Discharge Planning Asst. Original Note: Discharge Planning Physicians will transport patient to his home by cot at 2:30. SW updated. Enedelia Hemphill DC Planning Asst.
--- NOTE | 2023-08-19 12:43 | CASEMGMT ---
KURTIS spoke with patient's Soha and let her know patient will be coming home today. SW will arrange transport. Hospice will also be out later today. She thanked KURTIS for the update. KURTIS asked Enedelia to schedule transport for 230 since Hospice won't be able to be out until after that. Enedelia notified Soha and KURTIS notified Hospice as well as faxed d/c instructions. Plan: d/c home with [facility]. Physicians will transport home. Kia NATHAN
== END 2023-08-19 15:26 | disposition hospice, home (50) | DRG 987 ==
LOC: ED 14:54 → PCU 15:09
PROVIDERS: Admitting Provider Internal Medicine; Emergency Provider Student in an Organized Health Care Education/Training Program; PCP Internal Medicine; Visit Provider Internal Medicine
DX: E83.52 Hypercalcemia (principal); J69.0 Pneumonitis due to inhalation of food and vomit; G92.8 Other toxic encephalopathy; E43 Unspecified severe protein-calorie malnutrition; E87.0 Hyperosmolality and hypernatremia; C34.31 Malignant neoplasm of lower lobe, right bronchus or lung; E87.29 Other acidosis; N18.4 Chronic kidney disease, stage 4 (severe); N17.9 Acute kidney failure, unspecified; G13.0 Paraneoplastic neuromyopathy and neuropathy; D64.9 Anemia, unspecified; I12.9 Hypertensive chronic kidney disease with stage 1 through stage 4 chronic kidney disease, or unspecified chronic kidney disease; E03.9 Hypothyroidism, unspecified; E87.8 Other disorders of electrolyte and fluid balance, not elsewhere classified; R53.81 Other malaise; Z80.42 Family history of malignant neoplasm of prostate; Z80.0 Family history of malignant neoplasm of digestive organs; Z80.8 Family history of malignant neoplasm of other organs or systems; N40.0 Benign prostatic hyperplasia without lower urinary tract symptoms; Z92.3 Personal history of irradiation; Z66 Do not resuscitate; R53.1 Weakness; R13.12 Dysphagia, oropharyngeal phase; Z68.22 Body mass index [BMI] 22.0-22.9, adult; Z85.818 Personal history of malignant neoplasm of other sites of lip, oral cavity, and pharynx
CPT/HCPCS: 36415; 71045; 71046; 71250; 74230; 76770; 77012; 80048; 80053; 81001; 82248; 82306; 82330; 82550; 82728; 82962; 83540; 83550; 83735; 84100; 84443; 85025; 85045; 85610; 87040; 87086; 87631; 87641; 88172; 88305; 88313; 88341; 88342; 92526; 92610; 92611; 93005; 97162; 97166; 97530; 97535; 97802; 97803; 99156; 99284; J7030; J7050; A4216; C2613; J0295; J0630; J1940; J2405; J2430